=== PATIENT | male | born 1960 | race Caucasian/White ===

== ENCOUNTER 2019-05-12 12:24 | Outpatient (CLI) | payer BC, SELFPAY ==
--- NOTE | 2019-05-12 12:33 | USCV_ITS ---
Mervin Olivas Age: 59 Gender: M : 1960 Exam Date: 05/12/2019 12:44 Ordering Phys: Servando Gibson MD Technologist: Diamond Garrett Exam Location: [facility] [place] HISTORY: Lower extremity swelling. Left fem-pop arterial graft placed 3 months ago. PROCEDURES: Venous duplex imaging was performed in only the left lower extremity. The following venous structures were evaluated: common femoral vein, profunda vein, proximal portion of the greater saphenous vein, superficial femoral vein, and the popliteal vein. In addition, the posterior tibial and peroneal trunk were evaluated. FINDINGS: Normal 2-D Doppler and augmentation and compressibility throughout the lower extremity venous structures. Additional imaging through the proximal calf veins also reveals no thrombus. Limited evaluation of the greater saphenous vein is patent with no thrombus.. CONCLUSIONS No evidence of left lower extremity DVT. Cl Agee MD (Electronically Signed) Final Date: 12 May 2019 15:41 S
== END 2019-05-12 12:25 | disposition home or self-care (01) ==
LOC: RAD 12:28
PROVIDERS: Family Provider Family Medicine; PCP Family Medicine; Visit Provider Family Medicine
DX: M79.605 Pain in left leg (principal)
CPT/HCPCS: 93971

== ENCOUNTER 2019-05-13 11:50 | Outpatient (CLI) | payer BC, SELFPAY ==
--- NOTE | 2019-05-13 12:45 | USCV_ITS ---
Mervin Olivas Age: 59 Gender: M : 1960 Exam Date: 05/13/2019 12:07 Ordering Phys: Servando Gibson MD Technologist: Diamond Garrett [place] [facility] [place] LEFT LEG PAIN Risk Factors: None Previous Vascular Surgery: LEFT FEMORAL-POPLITEAL GRAFT RIGHT LEFT BP: 173.0 / 74.00 BP: 168.0/ 79.00 0 0 Waveform Velocity (cm/s) Velocity (cm/s) Waveform Iliac Prox 113.9 Monophasic Iliac Mid 122.6 Monophasic Iliac Distal Monophasic 118.7 MANAGER CREATIVE 200.5 Monophasic SFA Prox 161.8 Monophasic SFA Mid 132.7 Monophasic SFA Dist 201.7 Monophasic POP 90.5 Monophasic MEDICAL ECONOMICS CONSULTANT 29.5 Monophasic DPA 86.0 Monophasic KENNETH 0.7 FINDINGS Diminished resting KENNETH on the left side. Monophasic Doppler waveforms throughout the left side. CONCLUSIONS The above features may suggest at least moderate peripheral artery disease, possibly multisegmental Dr Shanell Zepeda MD [facility] (Electronically Signed) Final Date: 14 May 2019 15:27 S
--- NOTE | 2019-05-24 13:48 | PM.HP ---
Providers/Chief Complaint Admitting Physician: Susan aMyorga DO Primary Care Provider: Servando Gibson Jr, MD Chief Complaint: left leg pain History of Present Illness Mervin Olivas is a 59 year old male with a past medical history of peripheral vascular disease, claudication, diabetes and hypertension that presented to the hospital today via direct admission from his primary care provider's office due to concern for left lower extremity cellulitis. Patient reported that he has been having fever since Thursday. T-max of 103.8 ?F, he was in [place] over the weekend working when he began having increased leg swelling and pain in the left lower extremity. Coding Level of Care Code Acute Crm Marketing Analyst for Dwaine Sinclair
== END 2019-05-13 11:51 | disposition home or self-care (01) ==
LOC: RAD 11:53
PROVIDERS: Family Provider Family Medicine; PCP Family Medicine; Visit Provider Family Medicine
DX: M79.605 Pain in left leg (principal)
CPT/HCPCS: 93926

== ENCOUNTER 2019-05-24 11:58 | Inpatient (IN) | payer BC, SELFPAY ==
[2019-05-24 13:08] VITALS: BMI 43.9
--- NOTE | 2019-05-24 13:55 | PM.HP ---
Providers/Chief Complaint Admitting Physician: Susan Mayorga MD Primary Care Provider: Servando Gibson Jr, MD Chief Complaint: LEFT GROIN CELLULITIS History of Present Illness Mervin Olivas is a 59 year old male Mervin Olivas is a 59 year old male with a past medical history of peripheral vascular disease, claudication, diabetes and hypertension that presented to the hospital today via direct admission from his primary care provider's office due to concern for left lower extremity cellulitis. Patient reported that he has been having fever since Thursday. T-max of 103.8 ?F, he was in [place] over the weekend working when he began having increased leg swelling and pain in the left lower extremity. Patient was seen at his primary care provider's office today due to the concern and continued fevers and pain and admitted to the hospital for further evaluation and treatment. Patient had been hospitalized at [facility] after the due to having cellulitis in the left lower extremity and groin after a femoropopliteal bypass in the left leg that was performed on 01/27/2019. Patient is followed with Dr. Levin, vascular surgery as well as with Dr. Shipley. Patient reports that he had a wound VAC placed shortly after , had been receiving IV antibiotics and transition to oral antibiotics and has had continued healing of his incision since that time. He is dated that he has not had any other symptoms other than sudden onset of swelling and redness in the left lower extremity. No recent sick contacts, no cough or sputum production. Patient reported no changes to his incision, no drainage. Reported that some redness had extended into his abdomen over the weekend, has not been on any recent antibiotics. Review of Systems Const: Reports: fever and chills Eyes: Denies: change in vision ENMT: Denies: nasal congestion Card: Denies: chest pain or palpitations Resp: Denies: shortness of breath, productive cough or coughing up blood GI: Denies: abdominal pain, nausea, vomiting, diarrhea, constipation, blood in stool or black tarry stool : Denies: painful urination or blood in urine Musc: Reports: extremity pain (Left) and redness (L Leg); Denies: muscle cramps Skin/Breast: Reports: redness (Left lower extremity) Neuro: Denies: headache or dizziness Psych: Denies: anxiety or depression Endo: Denies: excessive urination or hot flashes [place]/Lymph: Denies: easy bruising or easy bleeding PFSH Acute PFSH: Statuses (acute, chronic, etc) shown below reflect problem list status as previously entered and may not be historically accurate Medical History (Updated 05/24/19 @ 14:01 by Susan Mayorga DO) Carotid artery stenosis (Acute) Coronary artery disease (Acute) Diabetes mellitus type 2, insulin dependent (Acute) Hypertension (Acute) Obstructive sleep apnea (Acute) Peripheral vascular disease (Acute) Surgical History (Updated 05/24/19 @ 14:14 by Susan Mayorga DO) Hx of cardiac cath (Acute) Stent x2 in 2015, Dr. Anton Cheney [place], [place] Hx of laparoscopic gastric banding (Acute) 04/2009 Status post femoral-popliteal bypass surgery (Acute) Left leg, Noni Barrera: Dr. Levni 01/27/2019 Status post repair of complex wound (Acute) Wound exploration and wound VAC placement on 03/02/2019 Wound exploration on 02/17/2019 Drain placed in left groin wound on 02/05/2019 Family History (Updated 05/24/19 @ 14:15 by Susan Mayorga DO) Mother Hypertension Cancer Breast Cancer Grandfather Diabetes Social History (Updated 05/24/19 @ 14:16 by Susan Mayorga DO) Smoking and tobacco status: former smoker Alcohol intake: never Substance/Drug Use: never Household members: spouse Marital status: Highest education level completed: High School Graduate Current occupational status: employed 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 Vitals/I&O/Wt 05/23/19 05/24/19 05/24/19 22:59 06:59 14:59 Intake Total 360 / 360 Balance 360 / 360 Weight last 48 hrs Weight 151.001 kg Physical Exam Const: COMMON NORMALS: oriented x3 and alert GENERAL APPEARANCE: cooperative ORIENTATION/CONSCIOUSNESS: Yes awake, Yes oriented to person, Yes oriented to place and Yes oriented to time HENMT: COMMON NORMALS: normocephalic and head/scalp atraumatic HEAD & SCALP: normocephalic and atraumatic Eye: COMMON NORMALS: PERRL PUPIL: Yes PERRL Neck/C-Spine: COMMON NORMALS: supple GENERAL: Yes normal visual inspection Resp: COMMON NORMALS: normal respiratory effort and clear to auscultation bilaterally EFFORT & INSPECTION: Yes able to speak in complete sentences AUSCULTATION: clear to auscultation bilaterally, no rhonchi and no wheezes Cardio: COMMON NORMALS: regular rate, regular rhythm and no murmurs RATE: regular rate RHYTHM: regular rhythm GI: COMMON NORMALS: soft to palpation and non-tender INSPECTION: No abdominal distension AUSCULTATION: Yes normoactive bowel sounds PALPATION: Yes soft Extremity: NARRATIVE EXTREMITY EXAM: Left lower extremity with 2+ pitting edema and erythema Neuro: COMMON NORMALS: oriented x3, CN's II-XII intact bilaterally, moves all extremities and no focal motor deficits SENSORIUM/ORIENTATION: Yes alert, Yes oriented to person, Yes oriented to place and Yes oriented to time SPEECH: speech normal Psych: COMMON NORMALS: mental status grossly normal and cooperative Skin: OTHER: Left lower extremity with erythema extending from the ankle to the knee, no open wounds or drainage. Incision on the left medial groin well-healed without any surrounding erythema or drainage. Small abrasion in the left groin with no significant drainage A&P Assessment and plan (1) Cellulitis: Admit to inpatient due to significance of cellulitis and fever and concern for sepsis Started on broad-spectrum IV antibiotics with vancomycin and Zosyn We will up attain records from outpatient facility due to patient's recent femoropopliteal and debridement requiring wound VAC placement in March 2019 We will obtain urgent imaging of the left lower extremity to rule out any arterial occlusion due to his history of peripheral vascular disease and rule out any DVT Status: Acute Code(s): L03.90 - Cellulitis, unspecified (2) Peripheral vascular disease: Status post recent femoral-popliteal bypass surgery at [facility] by Dr. Levin Had difficulty healing following this procedure requiring multiple wound explorations and ultimately wound VAC placement, wound is now healed without any identifiable drainage We will obtain ultrasound of the lower extremity for further evaluation of occlusion or DVT Status: Acute Code(s): I73.9 - Peripheral vascular disease, unspecified (3) Coronary artery disease: Continue on home aspirin, Coreg, Imdur, lisinopril, statin Status: Acute Code(s): I25.10 - Atherosclerotic heart disease of [place] coronary artery without angina pectoris (4) Hypertension: Continue on home medications: Coreg 3.125 mg twice daily, Imdur 30 mg daily, lisinopril 20 mg twice daily, amlodipine 10 mg daily Status: Acute Code(s): I10 - Essential (primary) hypertension (5) Diabetes mellitus type 2, insulin dependent: Continue with insulin sliding scale as needed Patient is on Lantus 35 units at bedtime at home, may require slight decrease in dose in the inpatient setting but will continue to monitor glucose closely Status: Acute Code(s): E11.9 - Type 2 diabetes mellitus without complications; Z79.4 - 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 DVT prophylaxis: Lovenox Diet: Carbohydrate consistent Attestations Medical Necessity Statement*: Patient requires hospitalization due to concern for fever with lower extremity cellulitis in the setting of recent femoral-popliteal bypass surgery in January with multiple wound complications in the postoperative setting including wound VAC placement. Expected stay greater than 2 midnights Coding Level of Care Code Acute Press Supervisor for Dwaine Sinclair Diagnoses Cellulitis L03.90 Peripheral vascular disease I73.9 Coronary artery disease I25.10 Hypertension I10 Diabetes mellitus type 2, insulin dependent E11.9; Z79.4
--- NOTE | 2019-05-24 14:03 | USCV_ITS ---
Mervin Olivas Age: 59 Gender: M : 1960 Exam Date: 05/24/2019 15:08 Ordering Phys: Susan Mayorga DO Technologist: Jevon Vargas [place] [facility] [place]: LT LEG SWELLING HISTORY: Lower extremity swelling. PROCEDURES: Venous duplex imaging was performed in only the left lower extremity. The following venous structures were evaluated: common femoral vein, profunda vein, proximal portion of the greater saphenous vein, superficial femoral vein, and the popliteal vein. In addition, the posterior tibial and peroneal trunk were evaluated. On the left side, the common femoral, superficial femoral, profunda femoral, popliteal, posterior tibial, greater saphenous veins, and the peroneal trunk were identified and interrogated in the standard fashion. These veins were found to be easily compressible with spontaneous blood flow. No evidence of insufficiency or thrombus noted. FINDINGS: Normal 2-D Doppler and augmentation and compressibility throughout the lower extremity venous structures. Additional imaging through the proximal calf veins also reveals no thrombus. Limited evaluation of the greater saphenous vein is patent with no thrombus.. Echolucent areas are noted in the subcutaneous tissue CONCLUSIONS No evidence of DVT in the above-mentioned identifiable veins. Features of fluid retention/edema in the left lower extremity Dr Shanell Zepeda MD [facility] (Electronically Signed) Final Date: 25 May 2019 08:30 S
--- NOTE | 2019-05-24 14:03 | USCV_ITS ---
SilvanaMervin herrera Age: 59 Gender: M : 1960 Exam Date: 05/24/2019 15:13 Ordering Phys: Susan Mayorga DO Technologist: Jevon Vargas [place] [facility] [place]: LT LEG ILIAC TO FEM ART BY PASS Risk Factors: Previous Vascular Surgery: RIGHT LEFT BP: 170.0 / 70.00 BP: 170.0/ 70.00 0 0 Waveform Velocity (cm/s) Velocity (cm/s) Waveform SFA Prox 113.6 Monophasic SFA Mid 124.9 Monophasic SFA Dist 49.5 Monophasic POP 79.7 Monophasic HEAD SCORER 34.8 Monophasic DPA 140.0 Monophasic KENNETH 0.7 FINDINGS NO CHANGE FROM PREVIOUS Patent iliofemoral bypass graft Diminished resting KENNETH of 0.7 on the left side Moderate diffuse plaques in the femoral popliteal artery CONCLUSIONS Abnormal resting KENNETH on the left side, consistent with moderate peripheral artery disease Patent iliofemoral bypass graft Compared to the study from 05/13/2019, the KENNETH has not changed Dr Shanell Zepeda MD [facility] (Electronically Signed) Final Date: 25 May 2019 08:37 S
[2019-05-24 14:48] LABS: Basophils % 0.3 %; Eosinophils # 0.2 10^3/uL (0.0-0.8); Eosinophils % 1.2 %; Hematocrit 33.7 % (42.0-52.0); Hemoglobin 10.5 g/dL (11.7-16.6); Lymphocytes # 1.2 10^3/uL (0.8-4.8); Lymphocytes % 9.2 %; Mean Corpuscular HGB Conc 31.2 g/dL (30.0-36.0); Mean Corpuscular Hemoglobin 24.5 pg (28.0-34.0); Mean Corpuscular Volume 78.7 fL (80-94); Mean Platelet Volume 10.5 fL (7.4-10.4); Monocytes # 1.1 10^3/uL (0.2-0.9); Monocytes % 7.9 %; Neutrophils # 10.8 10^3/uL (1.8-7.7); Neutrophils % 80.6 %; Nucleated Red Blood Cells % 0 %; Platelet Count 170 10^3/cmm (130-400); Red Blood Count 4.28 10^6/uL (4.1-5.3); Red Cell Distribution Width 14.6 % (12.1-15.1); White Blood Count 13.3 10^3/uL (4.0-10.0)
[2019-05-24 15:05] LABS: Lactic Sepsis W/Reflex 1.4 mmol/L (0.5-2.2)
[2019-05-24 15:06] LABS: Alanine Aminotransferase 24 U/L (0-41); Albumin Level 2.9 g/dL (3.5-5.2); Alkaline Phosphatase 161 IU/L (40-130); Anion Gap 14.7 (5-19); Aspartate Amino Transferase 25 U/L (0-40); Blood Urea Nitrogen 12 mg/dL (6-20); C Reactive Protein 187.4 mg/L (0.0-4.9); Calcium 9.3 mg/Dl (8.6-10.0); Carbon Dioxide 25 mmol/L (22-29); Chloride 95 mmol/L (98-107); Globulin 4.8 g/dL (1.3-4.6); Glomerular Filtration Rate 116.2 mL/min (90-130); Glucose 175 mg/dL (74-109); Potassium 3.7 mmol/L (3.5-5.1); Sodium 131 mmol/L (136-145); Total Bilirubin 0.6 mg/dL (0.15-1.2); Total Protein 7.7 g/dL (6.6-8.7)
[2019-05-24 15:29] LABS: Erythrocyte Sedimentation Rate 94 mm/hr (0-10)
[2019-05-24 15:47] VITALS: BP 126/78; PULSE 79; RESP 17; TEMP 36.8; O2SAT 98
[2019-05-24 16:06] VITALS: PULSE 80; O2SAT 92
[2019-05-24] MEDS: sodium chloride 0.9% 1,000 ML 50 ML IV (16:48)
[2019-05-24] MEDS: enoxaparin 40 mg/0.4 mL Syringe SUBCUT (16:48)
[2019-05-24 18:25] LABS: Glucose Point of Care 246 mg/dL (70-110)
[2019-05-24] MEDS: piperacillin-tazobactam 3.375 GM in sodium chloride 0.9% (plus) 50 ML IV (18:35)
[2019-05-24 20:00] VITALS: BP 164/71; PULSE 84; RESP 24; TEMP 37.9; O2SAT 94
[2019-05-24] MEDS: insulin glargine 100 units/1 mL 25 UNIT SUBCUT (20:24)
[2019-05-24 21:16] LABS: Glucose Point of Care 191 mg/dL (70-110)
[2019-05-24] MEDS: acetaminophen 325 mg Tablet 650 MG PO (21:40)
[2019-05-24 22:43] VITALS: PULSE 79; O2SAT 96
[2019-05-25] VITALS (7 sets, daily range): BP systolic 154–177; BP diastolic 66–81; PULSE 72–81; RESP 16–24; TEMP 36.8–37.7; O2SAT 91–94
[2019-05-25] MEDS: pregabalin 100 mg Capsule PO ×4 (00:31→20:40)
[2019-05-25] MEDS: piperacillin-tazobactam 3.375 GM in sodium chloride 0.9% (plus) 50 ML IV ×2 (01:53→18:04)
[2019-05-25 06:49] LABS: Glucose Point of Care 160 mg/dL (70-110)
--- NOTE | 2019-05-25 10:08 | PM.PN ---
Subjective Subjective: Interval history: Patient awake in bed at time of exam this morning. Reported continued pain in the left lower extremity, continued redness. Denied any chest pain or shortness of breath. Vitals/I&O/Wt Last Vital Signs Temp 99.4 F 05/25/19 08:00 Pulse 76 05/25/19 08:00 Resp 18 05/25/19 08:00 BP 157/78 05/25/19 08:00 Pulse Ox 93 05/25/19 08:00 05/24/19 05/25/19 05/25/19 22:59 06:59 14:59 Intake Total 750 / 1110 450 / 1560 600 / 600 Balance 750 / 1110 450 / 1560 600 / 600 Weight last 48 hrs Weight 153.677 kg Weight 151.001 kg Physical Exam Const: COMMON NORMALS: oriented x3 and alert GENERAL APPEARANCE: cooperative ORIENTATION/CONSCIOUSNESS: Yes awake, Yes oriented to person, Yes oriented to place and Yes oriented to time HENMT: COMMON NORMALS: normocephalic and head/scalp atraumatic HEAD & SCALP: normocephalic and atraumatic Eye: COMMON NORMALS: PERRL PUPIL: Yes PERRL Neck/C-Spine: COMMON NORMALS: supple GENERAL: Yes normal visual inspection Resp: COMMON NORMALS: normal respiratory effort and clear to auscultation bilaterally EFFORT & INSPECTION: Yes able to speak in complete sentences AUSCULTATION: clear to auscultation bilaterally, no rhonchi and no wheezes Cardio: COMMON NORMALS: regular rate, regular rhythm and no murmurs RATE: regular rate RHYTHM: regular rhythm GI: COMMON NORMALS: soft to palpation and non-tender INSPECTION: No abdominal distension AUSCULTATION: Yes normoactive bowel sounds PALPATION: Yes soft Extremity: NARRATIVE EXTREMITY EXAM: Left lower extremity with 2+ pitting edema and erythema to the knee Neuro: COMMON NORMALS: oriented x3, CN's II-XII intact bilaterally, moves all extremities and no focal motor deficits SENSORIUM/ORIENTATION: Yes alert, Yes oriented to person, Yes oriented to place and Yes oriented to time SPEECH: speech normal Psych: COMMON NORMALS: mental status grossly normal and cooperative Skin: OTHER: Left lower extremity with erythema extending from the ankle to the knee, no open wounds or drainage. Incision on the left medial groin well-healed without any surrounding erythema or drainage. Small abrasion in the left groin with no significant drainage Data : 05/24/19 14:32 05/24/19 14:32 Micro: Microbiology 05/24/19 14:38 Blood Culture - Preliminary Blood SPECIMEN COLLECTED 05/24/19 14:32 Blood Culture - Preliminary Blood SPECIMEN COLLECTED A&P Assessment and plan (1) Cellulitis: Continue on broad-spectrum IV antibiotics with vancomycin and Zosyn Recent Fem/pop bypass and debridement requiring wound VAC placement in March 2019 at [facility] Lower extremity venous duplex negative for DVT, arterial duplex is unchanged from last week Status: Acute Code(s): L03.90 - Cellulitis, unspecified (2) Peripheral vascular disease: Status post recent femoral-popliteal bypass surgery at [facility] by Dr. Levin Had difficulty healing following this procedure requiring multiple wound explorations and ultimately wound VAC placement, wound is now healed without any identifiable drainage Status: Acute Code(s): I73.9 - Peripheral vascular disease, unspecified (3) Coronary artery disease: Continue on home aspirin, Coreg, Imdur, lisinopril, statin Status: Acute Code(s): I25.10 - Atherosclerotic heart disease of [place] coronary artery without angina pectoris (4) Hypertension: Continue on home medications: Coreg 3.125 mg twice daily, Imdur 30 mg daily, lisinopril 20 mg twice daily, amlodipine 10 mg daily Status: Acute Code(s): I10 - Essential (primary) hypertension (5) Diabetes mellitus type 2, insulin dependent: Continue with insulin sliding scale as needed Patient is on Lantus 35 units at bedtime at home, decreased insulin requirements as do not wish for him to become hypoglycemic in the inpatient setting Status: Acute Code(s): E11.9 - Type 2 diabetes mellitus without complications; 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 Additional A&P Information Fever: Secondary to lower extremity cellulitis Anemia: Chronic, normocytic on prior lab work from outside facility Neuropathy of the lower extremities: Restart home Lyrica DVT prophylaxis: Lovenox Diet: Carbohydrate consistent Attestations Medical Necessity Statement*: Patient requires continued hospitalization due to significant left lower extremity cellulitis with concern for sepsis and fever and severe peripheral vascular disease with recent femoral popliteal bypass Coding Level of Care Code Acute Transition Of Care Specialist for Dwaine Sinclair Diagnoses Cellulitis L03.90 Peripheral vascular disease I73.9 Coronary artery disease I25.10 Hypertension I10 Diabetes mellitus type 2, insulin dependent E11.9; Z79.4
[2019-05-25 10:45] LABS: Anion Gap 15.7 (5-19); Blood Urea Nitrogen 8 mg/dL (6-20); Calcium 8.7 mg/Dl (8.6-10.0); Carbon Dioxide 22 mmol/L (22-29); Chloride 94 mmol/L (98-107); Glomerular Filtration Rate 171.4 mL/min (90-130); Glucose 232 mg/dL (74-109); Osmolality Calculated 269 mOsm/kg (285-295); Potassium 3.7 mmol/L (3.5-5.1); Sodium 128 mmol/L (136-145)
[2019-05-25 11:25] LABS: Basophils % 0.3 %; Eosinophils # 0.1 10^3/uL (0.0-0.8); Eosinophils % 1.3 %; Hematocrit 31.3 % (42.0-52.0); Hemoglobin 9.8 g/dL (11.7-16.6); Lymphocytes # 0.8 10^3/uL (0.8-4.8); Lymphocytes % 8.4 %; Mean Corpuscular HGB Conc 31.3 g/dL (30.0-36.0); Mean Corpuscular Hemoglobin 24.4 pg (28.0-34.0); Mean Corpuscular Volume 77.9 fL (80-94); Mean Platelet Volume 11.1 fL (7.4-10.4); Monocytes # 0.8 10^3/uL (0.2-0.9); Monocytes % 7.7 %; Neutrophils # 8.2 10^3/uL (1.8-7.7); Neutrophils % 81.6 %; Nucleated Red Blood Cells % 0 %; Platelet Count 162 10^3/cmm (130-400); Red Blood Count 4.02 10^6/uL (4.1-5.3); Red Cell Distribution Width 14.6 % (12.1-15.1)
[2019-05-25 12:14] LABS: Glucose Point of Care 222 mg/dL (70-110)
[2019-05-25] MEDS: amlodipine 10 mg Tablet PO (13:31)
[2019-05-25] MEDS: isosorbide mononitrate ER 30 mg Tablet PO (13:31)
[2019-05-25] MEDS: lisinopril 20 mg Tablet PO (13:31)
[2019-05-25] MEDS: sodium chloride 0.9% 1,000 ML 50 ML IV (13:32)
[2019-05-25] MEDS: aspirin 81 mg EC Tablet PO (13:32)
[2019-05-25] MEDS: enoxaparin 40 mg/0.4 mL Syringe SUBCUT (13:32)
[2019-05-25] MEDS: carvedilol 3.125 mg Tablet PO ×2 (13:52→18:04)
[2019-05-25] MEDS: atorvastatin 40 mg Tablet 20 MG PO (16:36)
[2019-05-25 16:49] LABS: Glucose Point of Care 152 mg/dL (70-110)
[2019-05-25 20:11] LABS: Vancomycin Trough 12.9 ug/mL (10-15)
[2019-05-25] MEDS: triamcinolone 0.1% cream 15 gm 1 APPLIC TOPICAL ×2 (20:11→23:02)
[2019-05-25 21:19] LABS: Glucose Point of Care 268 mg/dL (70-110)
[2019-05-25] MEDS: insulin glargine 100 units/1 mL 30 UNIT SUBCUT (23:01)
[2019-05-26] VITALS (7 sets, daily range): BP systolic 147–179; BP diastolic 66–78; PULSE 68–74; RESP 18–22; TEMP 36.7–37.4; O2SAT 90–95
[2019-05-26] MEDS: lisinopril 20 mg Tablet PO ×2 (01:05→12:11)
[2019-05-26] MEDS: piperacillin-tazobactam 3.375 GM in sodium chloride 0.9% (plus) 50 ML IV ×3 (02:02→17:32)
[2019-05-26 06:04] LABS: Basophils % 0.4 %; Eosinophils # 0.2 10^3/uL (0.0-0.8); Eosinophils % 2.4 %; Hematocrit 30.5 % (42.0-52.0); Hemoglobin 9.4 g/dL (11.7-16.6); Lymphocytes % 14.6 %; Mean Corpuscular HGB Conc 30.8 g/dL (30.0-36.0); Mean Corpuscular Hemoglobin 24.1 pg (28.0-34.0); Mean Corpuscular Volume 78.2 fL (80-94); Mean Platelet Volume 10.4 fL (7.4-10.4); Monocytes # 0.6 10^3/uL (0.2-0.9); Monocytes % 8.9 %; Neutrophils # 4.9 10^3/uL (1.8-7.7); Neutrophils % 72.8 %; Nucleated Red Blood Cells % 0 %; Platelet Count 159 10^3/cmm (130-400); Red Cell Distribution Width 14.6 % (12.1-15.1); White Blood Count 6.8 10^3/uL (4.0-10.0)
[2019-05-26 06:28] LABS: Anion Gap 13.7 (5-19); Blood Urea Nitrogen 8 mg/dL (6-20); Calcium 8.4 mg/Dl (8.6-10.0); Carbon Dioxide 23 mmol/L (22-29); Chloride 96 mmol/L (98-107); Glomerular Filtration Rate 171.4 mL/min (90-130); Glucose 205 mg/dL (74-109); Osmolality Calculated 270 mOsm/kg (285-295); Potassium 3.7 mmol/L (3.5-5.1); Sodium 129 mmol/L (136-145)
[2019-05-26 07:01] LABS: Glucose Point of Care 218 mg/dL (70-110)
[2019-05-26] MEDS: amlodipine 10 mg Tablet PO (08:14)
[2019-05-26] MEDS: carvedilol 3.125 mg Tablet PO ×2 (08:14→17:32)
[2019-05-26] MEDS: aspirin 81 mg EC Tablet PO (08:14)
[2019-05-26] MEDS: atorvastatin 40 mg Tablet 20 MG PO (08:14)
[2019-05-26] MEDS: isosorbide mononitrate ER 30 mg Tablet PO (08:14)
[2019-05-26] MEDS: pregabalin 100 mg Capsule PO ×3 (08:14→21:09)
[2019-05-26] MEDS: triamcinolone 0.1% cream 15 gm 1 APPLIC TOPICAL ×3 (08:15→21:15)
--- NOTE | 2019-05-26 10:04 | PM.PN ---
Subjective Subjective: Interval history: Patient reports continued discomfort in the left lower extremity, worse with ambulation. He reports fevers and chills have improved. Denies any chest pain or shortness of breath. Denies any abdominal pain or nausea Vitals/I&O/Wt Last Vital Signs Temp 98.2 F 05/26/19 07:50 Pulse 72 05/26/19 07:50 Resp 20 H 05/26/19 07:50 BP 168/77 05/26/19 07:50 Pulse Ox 90 05/26/19 07:50 05/25/19 05/26/19 05/26/19 22:59 06:59 14:59 Intake Total 1150 / 3230 620 / 3850 Balance 1150 / 3230 620 / 3850 Weight last 48 hrs Weight 154.902 kg Weight 156.172 kg Weight 153.677 kg Weight 151.001 kg Physical Exam Const: COMMON NORMALS: oriented x3 and alert GENERAL APPEARANCE: cooperative ORIENTATION/CONSCIOUSNESS: Yes awake, Yes oriented to person, Yes oriented to place and Yes oriented to time HENMT: COMMON NORMALS: normocephalic and head/scalp atraumatic HEAD & SCALP: normocephalic and atraumatic Neck/C-Spine: COMMON NORMALS: supple GENERAL: Yes normal visual inspection Resp: COMMON NORMALS: normal respiratory effort and clear to auscultation bilaterally EFFORT & INSPECTION: Yes able to speak in complete sentences AUSCULTATION: clear to auscultation bilaterally, no rhonchi and no wheezes Cardio: COMMON NORMALS: regular rate, regular rhythm and no murmurs RATE: regular rate RHYTHM: regular rhythm GI: COMMON NORMALS: soft to palpation and non-tender INSPECTION: No abdominal distension AUSCULTATION: Yes normoactive bowel sounds PALPATION: Yes soft Extremity: NARRATIVE EXTREMITY EXAM: Continued edema and erythema in the left lower extremity, slight improvement in edema, continued erythema to the knee Neuro: COMMON NORMALS: oriented x3, CN's II-XII intact bilaterally, moves all extremities and no focal motor deficits SENSORIUM/ORIENTATION: Yes alert, Yes oriented to person, Yes oriented to place and Yes oriented to time SPEECH: speech normal Psych: COMMON NORMALS: mental status grossly normal and cooperative Skin: OTHER: Left lower extremity with erythema extending from the ankle to the knee, no open wounds or drainage. Data : 05/26/19 05:48 05/26/19 05:48 Micro: Microbiology 05/24/19 14:32 Blood Culture - Preliminary Blood NEGATIVE TO DATE 05/24/19 14:38 Blood Culture - Preliminary Blood NEGATIVE TO DATE A&P Assessment and plan (1) Cellulitis: Continue on broad-spectrum IV antibiotics with vancomycin and Zosyn Recent Fem/pop bypass and debridement requiring wound VAC placement in March 2019 at [facility] Lower extremity venous duplex negative for DVT, arterial duplex is unchanged from last week Fevers have improved, white blood cell count improving, will recheck CRP and ESR in the morning to trend. We will continue to monitor Dopplers in the lower extremity. Status: Acute Code(s): L03.90 - Cellulitis, unspecified (2) Peripheral vascular disease: Status post recent femoral-popliteal bypass surgery at [facility] by Dr. Levin Had difficulty healing following this procedure requiring multiple wound explorations and ultimately wound VAC placement, wound is now healed without any identifiable drainage Status: Acute Code(s): I73.9 - Peripheral vascular disease, unspecified (3) Coronary artery disease: Continue on home aspirin, Coreg, Imdur, lisinopril, statin Status: Acute Code(s): I25.10 - Atherosclerotic heart disease of [place] coronary artery without angina pectoris (4) Hypertension: Continue on home medications: Coreg 3.125 mg twice daily, Imdur 30 mg daily, lisinopril 20 mg twice daily, amlodipine 10 mg daily Status: Acute Code(s): I10 - Essential (primary) hypertension (5) Diabetes mellitus type 2, insulin dependent: Continue with insulin sliding scale as needed Lantus 30 units at bedtime Status: Acute Code(s): E11.9 - Type 2 diabetes mellitus without complications; 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 Secondary to lower extremity cellulitis. Blood culture showing no growth to date. Anemia: Chronic, normocytic on prior lab work from outside facility Neuropathy of the lower extremities: Continue Lyrica 3 times daily DVT prophylaxis: Lovenox Diet: Carbohydrate consistent Attestations Medical Necessity Statement*: Patient requires continued hospitalization due to left lower extremity cellulitis with recent femoral-popliteal bypass surgery Coding Level of Care Code Acute Benefits Consultant for Dwaine Sinclair Diagnoses Cellulitis L03.90 Peripheral vascular disease I73.9 Coronary artery disease I25.10 Hypertension I10 Diabetes mellitus type 2, insulin dependent E11.9; Z79.4
[2019-05-26 11:09] LABS: Glucose Point of Care 171 mg/dL (70-110)
[2019-05-26] MEDS: enoxaparin 40 mg/0.4 mL Syringe SUBCUT (14:04)
[2019-05-26] MEDS: HYDROcodone-acetaminophen 5-325 mg Tablet 1 TAB PO ×2 (15:47→21:11)
[2019-05-26 16:40] LABS: Glucose Point of Care 218 mg/dL (70-110)
[2019-05-26 20:36] LABS: Glucose Point of Care 259 mg/dL (70-110)
[2019-05-26] MEDS: insulin glargine 100 units/1 mL 30 UNIT SUBCUT (21:11)
[2019-05-27] MEDS: piperacillin-tazobactam 3.375 GM in sodium chloride 0.9% (plus) 50 ML IV ×2 (01:05→09:25)
[2019-05-27] MEDS: lisinopril 20 mg Tablet PO ×2 (01:05→11:51)
[2019-05-27 03:12] VITALS: BP 163/79; PULSE 66; RESP 19; TEMP 37.1; O2SAT 91
[2019-05-27 06:00] LABS: Basophils % 0.5 %; Eosinophils # 0.3 10^3/uL (0.0-0.8); Eosinophils % 3.6 %; Hematocrit 35.8 % (42.0-52.0); Hemoglobin 11.3 g/dL (11.7-16.6); Lymphocytes # 1.3 10^3/uL (0.8-4.8); Mean Corpuscular HGB Conc 31.6 g/dL (30.0-36.0); Mean Corpuscular Hemoglobin 24.7 pg (28.0-34.0); Mean Corpuscular Volume 78.3 fL (80-94); Mean Platelet Volume 10.1 fL (7.4-10.4); Monocytes # 0.6 10^3/uL (0.2-0.9); Monocytes % 7.6 %; Neutrophils # 5.5 10^3/uL (1.8-7.7); Neutrophils % 70.4 %; Nucleated Red Blood Cells % 0 %; Platelet Count 281 10^3/cmm (130-400); Red Blood Count 4.57 10^6/uL (4.1-5.3); Red Cell Distribution Width 14.6 % (12.1-15.1); White Blood Count 7.8 10^3/uL (4.0-10.0)
[2019-05-27 06:15] LABS: Anion Gap 17.3 (5-19); Blood Urea Nitrogen 6 mg/dL (6-20); Calcium 9.1 mg/dL (8.5-10.5); Carbon Dioxide 23 mmol/L (22-29); Chloride 95 mmol/L (98-107); Glomerular Filtration Rate 171.4 mL/min (90-130); Glucose 140 mg/dL (74-109); Osmolality Calculated 270 mOsm/kg (285-295); Potassium 4.3 mmol/L (3.5-5.1); Sodium 131 mmol/L (136-145)
[2019-05-27 06:36] LABS: Glucose Point of Care 134 mg/dL (70-110)
[2019-05-27 06:40] LABS: C Reactive Protein 81.2 mg/L (0.0-4.9)
[2019-05-27] MEDS: isosorbide mononitrate ER 30 mg Tablet PO (07:59)
[2019-05-27] MEDS: amlodipine 10 mg Tablet PO (07:59)
[2019-05-27] MEDS: pregabalin 100 mg Capsule PO ×3 (07:59→21:35)
[2019-05-27 08:00] VITALS: BP 174/85; PULSE 68; RESP 18; TEMP 36.8; O2SAT 92
[2019-05-27] MEDS: HYDROcodone-acetaminophen 5-325 mg Tablet 1 TAB PO ×2 (08:00→21:34)
[2019-05-27] MEDS: aspirin 81 mg EC Tablet PO (08:00)
[2019-05-27] MEDS: carvedilol 3.125 mg Tablet PO ×2 (08:01→18:14)
[2019-05-27] MEDS: atorvastatin 40 mg Tablet 20 MG PO (09:24)
--- NOTE | 2019-05-27 10:03 | PM.PN ---
Subjective Subjective: Interval history: Patient reports improved pain in the left lower extremity today. Redness slightly improved. Denies any chills overnight. Denies any chest pain or shortness of breath. Discussed plan of care with patient as far as de-escalation of antibiotics and continued inpatient treatment and he understands plan and agrees with plan Vitals/I&O/Wt Last Vital Signs Temp 98.2 F 05/27/19 08:00 Pulse 68 05/27/19 08:00 Resp 18 05/27/19 08:00 BP 174/85 05/27/19 08:00 Pulse Ox 92 05/27/19 08:00 05/26/19 05/27/19 05/27/19 22:59 06:59 14:59 Intake Total 1030 / 2420 550 / 2970 720 / 720 Balance 1030 / 2420 550 / 2970 720 / 720 Weight last 48 hrs Weight 155.837 kg Weight 154.902 kg Weight 156.172 kg Physical Exam Const: COMMON NORMALS: oriented x3 and alert GENERAL APPEARANCE: cooperative ORIENTATION/CONSCIOUSNESS: Yes awake, Yes oriented to person, Yes oriented to place and Yes oriented to time HENMT: COMMON NORMALS: normocephalic and head/scalp atraumatic HEAD & SCALP: normocephalic and atraumatic Eye: COMMON NORMALS: PERRL PUPIL: Yes PERRL Neck/C-Spine: COMMON NORMALS: supple GENERAL: Yes normal visual inspection Resp: COMMON NORMALS: normal respiratory effort and clear to auscultation bilaterally EFFORT & INSPECTION: Yes able to speak in complete sentences AUSCULTATION: clear to auscultation bilaterally, no rhonchi and no wheezes Cardio: COMMON NORMALS: regular rate, regular rhythm and no murmurs RATE: regular rate RHYTHM: regular rhythm GI: COMMON NORMALS: soft to palpation and non-tender INSPECTION: No abdominal distension AUSCULTATION: Yes normoactive bowel sounds PALPATION: Yes soft Extremity: NARRATIVE EXTREMITY EXAM: Slightly improved erythema in the left lower extremity, improved erythema in the foot and ankle with continued erythema to the left knee. Edema slightly improved Neuro: COMMON NORMALS: oriented x3, CN's II-XII intact bilaterally, moves all extremities and no focal motor deficits SENSORIUM/ORIENTATION: Yes alert, Yes oriented to person, Yes oriented to place and Yes oriented to time SPEECH: speech normal Psych: COMMON NORMALS: mental status grossly normal and cooperative Skin: OTHER: Skin sloughing to the left lower extremity Data : 05/27/19 05:35 05/27/19 05:35 A&P Assessment and plan (1) Cellulitis: De-escalate antibiotic coverage to clindamycin Recent Fem/pop bypass and debridement requiring wound VAC placement in March 2019 at [facility] Lower extremity venous duplex negative for DVT, arterial duplex is unchanged from last week Fever has improved, white blood cell count trending down and CRP improved. Status: Acute Code(s): L03.90 - Cellulitis, unspecified (2) Peripheral vascular disease: Status post recent femoral-popliteal bypass surgery at [facility] by Dr. Levin Had difficulty healing following this procedure requiring multiple wound explorations and ultimately wound VAC placement, wound is now healed without any identifiable drainage Status: Acute Code(s): I73.9 - Peripheral vascular disease, unspecified (3) Coronary artery disease: Continue on home aspirin, Coreg, Imdur, lisinopril, statin Status: Acute Code(s): I25.10 - Atherosclerotic heart disease of [place] coronary artery without angina pectoris (4) Hypertension: Continue on home medications: Coreg 3.125 mg twice daily, Imdur 30 mg daily, lisinopril 20 mg twice daily, amlodipine 10 mg daily Status: Acute Code(s): I10 - Essential (primary) hypertension (5) Diabetes mellitus type 2, insulin dependent: Continue with insulin sliding scale as needed Lantus 30 units at bedtime Status: Acute Code(s): E11.9 - Type 2 diabetes mellitus without complications; Z79.4 - medical terminologist (current) use of insulin Additional A&P Information Fever: Secondary to sepsis and cellulitis, now resolved Anemia: Chronic, normocytic on prior lab work from outside facility, hemoglobin remained stable Neuropathy of the lower extremities: Continue Lyrica 3 times daily DVT prophylaxis: Lovenox Diet: Carbohydrate consistent Attestations Medical Necessity Statement*: Patient requires further hospitalization due to lower extremity cellulitis with fever and sepsis, slowly improving Coding Level of Care Code Acute Director Of Brand Marketing for [facility] Fwd Diagnoses Cellulitis L03.90 Peripheral vascular disease I73.9 Coronary artery disease I25.10 Hypertension I10 Diabetes mellitus type 2, insulin dependent E11.9; Z79.4
[2019-05-27 10:55] LABS: Glucose Point of Care 184 mg/dL (70-110)
[2019-05-27 12:00] VITALS: BP 174/78; PULSE 73; RESP 18; TEMP 36.8; O2SAT 92
[2019-05-27 15:48] VITALS: BP 167/79; PULSE 75; RESP 18; TEMP 36.9; O2SAT 91
[2019-05-27] MEDS: lactobacillus 1 Tablet 1 TAB PO ×3 (16:17→21:35)
[2019-05-27] MEDS: clindamycin 600 MG/50 ML PREMIX 100 MG IV ×2 (16:17→21:33)
[2019-05-27] MEDS: enoxaparin 40 mg/0.4 mL Syringe SUBCUT (16:17)
[2019-05-27 16:57] LABS: Glucose Point of Care 232 mg/dL (70-110)
[2019-05-27 19:22] VITALS: BP 184/68; PULSE 78; RESP 19; TEMP 37.3; O2SAT 91
[2019-05-27 21:10] LABS: Glucose Point of Care 229 mg/dL (70-110)
[2019-05-27] MEDS: insulin glargine 100 units/1 mL 30 UNIT SUBCUT (21:33)
[2019-05-28] VITALS (10 sets, daily range): BP systolic 153–180; BP diastolic 51–91; PULSE 66–73; RESP 17–24; TEMP 36.6–37.1; O2SAT 90–94
[2019-05-28] MEDS: lisinopril 20 mg Tablet PO ×2 (03:16→14:37)
[2019-05-28] MEDS: clindamycin 600 MG/50 ML PREMIX 100 MG IV ×3 (05:28→21:46)
[2019-05-28 06:46] LABS: Glucose Point of Care 166 mg/dL (70-110)
[2019-05-28] MEDS: isosorbide mononitrate ER 30 mg Tablet PO (09:07)
[2019-05-28] MEDS: pregabalin 100 mg Capsule PO ×3 (09:07→21:47)
[2019-05-28] MEDS: atorvastatin 40 mg Tablet 20 MG PO (09:07)
[2019-05-28] MEDS: lactobacillus 1 Tablet 1 TAB PO ×4 (09:07→21:47)
[2019-05-28] MEDS: aspirin 81 mg EC Tablet PO (09:07)
[2019-05-28] MEDS: amlodipine 10 mg Tablet PO (09:07)
[2019-05-28] MEDS: carvedilol 3.125 mg Tablet PO ×2 (09:07→16:53)
--- NOTE | 2019-05-28 09:25 | P.PN_ITS ---
Subjective Subjective: Interval history: He feels like he is doing better. No chest pain or shortness of breath. No fevers. Redness has improved and swelling has improved as well. Medications: Reviewed: Yes Vitals/I&O/Wt Last Vital Signs Temp 98.1 F 05/28/19 07:48 Pulse 71 05/28/19 07:48 Resp 18 05/28/19 07:48 BP 165/78 05/28/19 07:48 Pulse Ox 90 05/28/19 07:48 05/27/19 05/28/19 05/28/19 22:59 06:59 14:59 Intake Total 1560 / 2280 600 / 600 Output Total 200 / 700 500 / 700 Balance 1360 / 1580 -500 / 1580 600 / 600 Weight last 48 hrs Weight 345 lb 1.6 oz Weight 343 lb 9 oz Physical Exam Narrative: EXAM NARRATIVE: General: No acute distress, Alert. Well nourished. Heart: Regular rate and rhythm. No murmurs, rubs or gallops. Normal capillary refill. Lungs: Clear to auscultation. No wheezes, rhonchi or rales. Abdomen: Positive bowel sounds. Non-tender, non-distended. No hepatosplenomegaly. No gaurding. Extremities: No clubbing, cyanosis, negative Homans. Extensive erythema in the left lower extremity. 1+ edema. Data : 05/27/19 05:35 05/27/19 05:35 A&P Assessment and plan (1) Cellulitis: This seems to be improving. Will repeat labs in the morning. Continue IV antibiotics for another couple of days. Continue wraps per physical therapy. 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 Coding Level of Care Code Acute Binder Sorter for [facility] Fwd Diagnoses Cellulitis L03.90 Diabetes mellitus type 2, insulin dependent E11.9; Z79.4 Coronary artery disease I25.10 Peripheral vascular disease I73.9
[2019-05-28 11:19] LABS: Glucose Point of Care 219 mg/dL (70-110)
[2019-05-28] MEDS: enoxaparin 40 mg/0.4 mL Syringe SUBCUT (13:31)
[2019-05-28] MEDS: HYDROcodone-acetaminophen 5-325 mg Tablet 1 TAB PO (13:35)
[2019-05-28 16:08] LABS: Glucose Point of Care 199 mg/dL (70-110)
[2019-05-28] MEDS: insulin glargine 100 units/1 mL 30 UNIT SUBCUT (21:46)
[2019-05-28 21:53] LABS: Glucose Point of Care 264 mg/dL (70-110)
[2019-05-29] VITALS (7 sets, daily range): BP systolic 152–181; BP diastolic 70–81; PULSE 64–70; RESP 18–24; TEMP 36.6–37.1; O2SAT 91–94
[2019-05-29] MEDS: lisinopril 20 mg Tablet PO ×2 (03:55→14:05)
[2019-05-29] MEDS: HYDROcodone-acetaminophen 5-325 mg Tablet 1 TAB PO ×3 (03:57→17:15)
[2019-05-29] MEDS: clindamycin 600 MG/50 ML PREMIX 100 MG IV ×3 (04:00→20:17)
[2019-05-29 05:46] LABS: Basophils % 0.5 %; Eosinophils # 0.2 10^3/uL (0.0-0.8); Eosinophils % 3.6 %; Hematocrit 34.5 % (42.0-52.0); Hemoglobin 10.7 g/dL (11.7-16.6); Lymphocytes % 15.1 %; Mean Corpuscular Hemoglobin 25.1 pg (28.0-34.0); Mean Corpuscular Volume 80.8 fL (80-94); Mean Platelet Volume 9.6 fL (7.4-10.4); Monocytes # 0.5 10^3/uL (0.2-0.9); Monocytes % 7.8 %; Neutrophils # 4.6 10^3/uL (1.8-7.7); Neutrophils % 71.8 %; Nucleated Red Blood Cells % 0 %; Platelet Count 231 10^3/cmm (130-400); Red Blood Count 4.27 10^6/uL (4.1-5.3); Red Cell Distribution Width 14.6 % (12.1-15.1); White Blood Count 6.4 10^3/uL (4.0-10.0)
[2019-05-29 06:03] LABS: Alanine Aminotransferase 51 U/L (0-41); Albumin Level 2.9 g/dL (3.5-5.2); Alkaline Phosphatase 240 IU/L (40-130); Anion Gap 16.4 (5-19); Aspartate Amino Transferase 42 U/L (0-40); Blood Urea Nitrogen 5 mg/dL (6-20); Calcium 9.1 mg/dL (8.5-10.5); Carbon Dioxide 25 mmol/L (22-29); Chloride 95 mmol/L (98-107); Globulin 4.2 g/dL (1.3-4.6); Glomerular Filtration Rate 221.7 mL/min (90-130); Glucose 153 mg/dL (74-109); Potassium 4.4 mmol/L (3.5-5.1); Sodium 132 mmol/L (136-145); Total Bilirubin 0.5 mg/dL (0.15-1.2); Total Protein 7.1 g/dL (6.6-8.7)
[2019-05-29 06:36] LABS: Glucose Point of Care 152 mg/dL (70-110)
[2019-05-29 06:39] LABS: C Reactive Protein 35.7 mg/L (0.0-4.9)
[2019-05-29] MEDS: carvedilol 3.125 mg Tablet PO ×2 (08:38→17:12)
[2019-05-29] MEDS: aspirin 81 mg EC Tablet PO (08:38)
[2019-05-29] MEDS: isosorbide mononitrate ER 30 mg Tablet PO (08:38)
[2019-05-29] MEDS: amlodipine 10 mg Tablet PO (08:38)
[2019-05-29] MEDS: atorvastatin 40 mg Tablet 20 MG PO (08:38)
[2019-05-29] MEDS: lactobacillus 1 Tablet 1 TAB PO ×4 (08:38→20:17)
--- NOTE | 2019-05-29 08:57 | P.PN_ITS ---
Subjective Subjective: Interval history: He feels like he is doing better. No chest pain or shortness of breath. No fevers. Redness has improved and swelling has improved as well. Apparently has been dealing with this off and on since January though. Medications: Reviewed: Yes Vitals/I&O/Wt Last Vital Signs Temp 97.9 F 05/29/19 07:54 Pulse 67 05/29/19 07:54 Resp 18 05/29/19 07:54 BP 168/81 05/29/19 07:54 Pulse Ox 91 05/29/19 07:54 05/28/19 05/29/19 05/29/19 22:59 06:59 14:59 Intake Total 560 / 1980 290 / 1980 800 / 800 Output Total 400 / 400 Balance 160 / 1580 290 / 1580 800 / 800 Weight last 48 hrs Weight 334 lb 8 oz Weight 345 lb 1.6 oz Physical Exam Narrative: EXAM NARRATIVE: General: No acute distress, Alert. Well nourished. Heart: Regular rate and rhythm. No murmurs, rubs or gallops. Normal capillary refill. Lungs: Clear to auscultation. No wheezes, rhonchi or rales. Abdomen: Positive bowel sounds. Non-tender, non-distended. No hepatosplenomegaly. No gaurding. Extremities: No clubbing, cyanosis, negative Homans. Extensive erythema in the left lower extremity but improved some since yesterday.. Trace to 1+ edema. Data : 05/31/19 08:25 05/31/19 08:25 Other Labs: Laboratory Tests 05/29/19 05:25 C-Reactive Protein 35.7 H A&P Assessment and plan (1) Cellulitis: This seems to be improving. Will repeat labs in the morning. Continue IV antibiotics for another couple of days. . 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
--- NOTE | 2019-05-29 09:20 | PC.RESP ---
PATIENT ON HOME CPAP
--- NOTE | 2019-05-29 11:31 | PC.CHAP ---
Pastoral Care Encounter/Spiritual Assessment Type of Contact [] Declined retort furnace helper visit [] Patient/Family/Request visit [] Outpatient visit [] Follow-up visit [] Physician referral [] Code/Alert [] Routine visit [] Staff referral [] Actively dying [] Patient sleeping [] Family support [] [] Out of room [] Palliative care [] [] Receiving care in room [] Pre-surgical visit [] Trauma [] Long length of stay [] ICU visit [] Other: Relational/Emotional Strength [x] Patient feels connected with others/family/visitors/staff [] Distress [] Loneliness/isolation [] Abandonment Spirituality of Patient [x] Person of [place] [] Attends Methodist of their [place] [x] Believes in Prayer [] Reads Bible or Restorationism materials [] There are Spiritual issues to be addressed Phlebotomy Director Interventions [x] Prayer [x] Active listening [x] Non-anxious presence [x] Spiritual/emotional support [] Crisis/trauma care [] Spiritual counseling [] Bereavement support [] Provided bereavement packet [] Provided Bible/devotional materials [] Provided toy/stuffed animal, coloring book to patient or family member [] Completed spiritual assessment [] Provided Communion [] Anointing/[place] [] Salvation [] Other: Impact on Illness or Injury [] Angry [] Fearful [] Anxious [] Often cries [] Exhaustion [] Unable to work [] Unable to attend protestant [] Unable to walk/stand [] Unable to read [] Unable to drive [] Unable to eat/drink [] Unable to sleep [] Unable to be with family [] Other: Summary Phlebotomy Director prayed with Patient. Time spent with patient 5 minutes
[2019-05-29 11:45] LABS: Glucose Point of Care 191 mg/dL (70-110)
[2019-05-29] MEDS: enoxaparin 40 mg/0.4 mL Syringe SUBCUT (14:04)
[2019-05-29 16:26] LABS: Glucose Point of Care 271 mg/dL (70-110)
[2019-05-29] MEDS: triamcinolone 0.1% cream 15 gm 1 APPLIC TOPICAL (20:18)
[2019-05-29 21:12] LABS: Glucose Point of Care 201 mg/dL (70-110)
[2019-05-29] MEDS: insulin glargine 100 units/1 mL 30 UNIT SUBCUT (21:44)
[2019-05-30] VITALS: BP 150/72; PULSE 74; RESP 20; TEMP 36.7; O2SAT 92
[2019-05-30 04:00] VITALS: BP 156/80; PULSE 65; RESP 20; TEMP 36.8; O2SAT 95
[2019-05-30] MEDS: lisinopril 20 mg Tablet PO ×2 (04:09→16:32)
[2019-05-30] MEDS: clindamycin 600 MG/50 ML PREMIX 100 MG IV ×3 (04:09→21:30)
[2019-05-30 05:58] LABS: Basophils % 0.5 %; Eosinophils # 0.2 10^3/uL (0.0-0.8); Eosinophils % 3.4 %; Hematocrit 34.2 % (42.0-52.0); Hemoglobin 10.5 g/dL (11.7-16.6); Lymphocytes % 15.8 %; Mean Corpuscular HGB Conc 30.7 g/dL (30.0-36.0); Mean Corpuscular Hemoglobin 24.8 pg (28.0-34.0); Mean Corpuscular Volume 80.7 fL (80-94); Mean Platelet Volume 9.7 fL (7.4-10.4); Monocytes # 0.5 10^3/uL (0.2-0.9); Monocytes % 8.4 %; Neutrophils # 4.6 10^3/uL (1.8-7.7); Neutrophils % 71.1 %; Nucleated Red Blood Cells % 0 %; Platelet Count 242 10^3/cmm (130-400); Red Blood Count 4.24 10^6/uL (4.1-5.3); Red Cell Distribution Width 14.6 % (12.1-15.1); White Blood Count 6.4 10^3/uL (4.0-10.0)
[2019-05-30 06:19] LABS: Alanine Aminotransferase 43 U/L (0-41); Alkaline Phosphatase 220 IU/L (40-130); Anion Gap 14.4 (5-19); Aspartate Amino Transferase 36 U/L (0-40); Blood Urea Nitrogen 6 mg/dL (6-20); Carbon Dioxide 26 mmol/L (22-29); Chloride 96 mmol/L (98-107); Globulin 4.8 g/dL (1.3-4.6); Glomerular Filtration Rate 171.4 mL/min (90-130); Glucose 160 mg/dL (74-109); Potassium 4.4 mmol/L (3.5-5.1); Sodium 132 mmol/L (136-145); Total Bilirubin 0.4 mg/dL (0.15-1.2); Total Protein 7.8 g/dL (6.6-8.7)
[2019-05-30 06:45] LABS: C Reactive Protein 21.6 mg/L (0.0-4.9)
[2019-05-30 06:53] LABS: Glucose Point of Care 132 mg/dL (70-110)
[2019-05-30 07:43] VITALS: BP 168/79; PULSE 70; RESP 16; TEMP 36.6; O2SAT 95
[2019-05-30] MEDS: atorvastatin 40 mg Tablet 20 MG PO (08:58)
[2019-05-30] MEDS: aspirin 81 mg EC Tablet PO (08:58)
[2019-05-30] MEDS: amlodipine 10 mg Tablet PO (08:58)
[2019-05-30] MEDS: isosorbide mononitrate ER 30 mg Tablet PO (08:58)
[2019-05-30] MEDS: carvedilol 3.125 mg Tablet PO ×2 (08:59→18:14)
[2019-05-30] MEDS: HYDROcodone-acetaminophen 5-325 mg Tablet 1 TAB PO ×2 (09:03→19:45)
[2019-05-30] MEDS: eucerin cream 113 gm Jar 1 APPLIC TOPICAL ×2 (09:05→18:15)
[2019-05-30 11:27] VITALS: BP 156/72; PULSE 62; RESP 18; TEMP 36.5; O2SAT 94
[2019-05-30 11:52] LABS: Glucose Point of Care 206 mg/dL (70-110)
[2019-05-30] MEDS: enoxaparin 40 mg/0.4 mL Syringe SUBCUT (14:03)
[2019-05-30 15:45] VITALS: BP 144/72; PULSE 68; RESP 16; TEMP 36.7; O2SAT 96
[2019-05-30 17:06] LABS: Glucose Point of Care 275 mg/dL (70-110)
[2019-05-30] MEDS: lactobacillus 1 Tablet 1 TAB PO ×2 (18:14→21:30)
--- NOTE | 2019-05-30 18:27 | PM.PN ---
Subjective Subjective: Interval history: This morning patient is lying in bed, is at bedside, states that the area of cellulitis, erythema, tenderness has significantly gone down, but still has a patch of erythema on his left barrera, no fevers, no chills, no nausea, no vomiting, overall doing better Vitals/I&O/Wt Last Vital Signs Temp 98.0 F 05/30/19 15:45 Pulse 68 05/30/19 15:45 Resp 16 05/30/19 15:45 BP 144/72 05/30/19 15:45 Pulse Ox 96 05/30/19 15:45 05/30/19 05/30/19 05/30/19 06:59 14:59 22:59 Intake Total 50 / 2810 1320 / 1320 720 / 2040 Balance 50 / 2810 1320 / 1320 720 / 2040 Weight last 48 hrs Weight 150.338 kg Weight 151.727 kg Physical Exam Const: COMMON NORMALS: no apparent distress and oriented x3 Neck/C-Spine: COMMON NORMALS: no JVD Resp: COMMON NORMALS: normal respiratory effort, no retractions, no use of accessory muscles and clear to auscultation bilaterally AUSCULTATION: clear to auscultation bilaterally Cardio: COMMON NORMALS: no JVD, regular rate, regular rhythm, S1 normal heart sound and S2 normal heart sound RATE: regular rate RHYTHM: regular rhythm HEART SOUNDS: S1 normal and S2 normal GI: COMMON NORMALS: normal to inspection, nondistended, normoactive bowel sounds, soft to palpation, non-tender, no hepatosplenomegaly, no masses and no bruits PALPATION: Yes soft and Yes no hepatosplenomegaly Extremity: COMMON NORMALS: normal capillary refill and no pedal edema Neuro: COMMON NORMALS: oriented x3 Psych: COMMON NORMALS: mental status grossly normal Skin: NARRATIVE SKIN EXAM: Left barrera, a 8 x 10 cm area of erythema, swelling, tenderness Data : 05/30/19 05:31 05/30/19 05:31 Micro: Microbiology 05/24/19 14:38 Blood Culture - Final Blood NO GROWTH AFTER 5 DAYS 05/24/19 14:32 Blood Culture - Final Blood NO GROWTH AFTER 5 DAYS A&P Assessment and plan (1) Cellulitis: Continue clindamycin Recent Fem/pop bypass and debridement requiring wound VAC placement in March 2019 at [facility] Lower extremity venous duplex negative for DVT, arterial duplex is unchanged from last week Afebrile, white blood cell count 6.4, clinically improving Status: Acute Code(s): L03.90 - Cellulitis, unspecified (2) Peripheral vascular disease: Status post recent femoral-popliteal bypass surgery at [facility] by Dr. Levin Had difficulty healing following this procedure requiring multiple wound explorations and ultimately wound VAC placement, wound is now healed without any identifiable drainage Status: Acute Code(s): I73.9 - Peripheral vascular disease, unspecified (3) Coronary artery disease: Continue on home aspirin, Coreg, Imdur, lisinopril, statin Status: Acute Code(s): I25.10 - Atherosclerotic heart disease of [place] coronary artery without angina pectoris (4) Hypertension: Continue on home medications: Coreg 3.125 mg twice daily, Imdur 30 mg daily, lisinopril 20 mg twice daily, amlodipine 10 mg daily Status: Acute Code(s): I10 - Essential (primary) hypertension (5) Diabetes mellitus type 2, insulin dependent: Continue with insulin sliding scale as needed Lantus 30 units at bedtime Status: Acute Code(s): E11.9 - Type 2 diabetes mellitus without complications; Z79.4 - retirement (current) use of insulin Additional A&P Information Neuropathy of the lower extremities: Continue Lyrica 3 times daily DVT prophylaxis: Lovenox Diet: Carbohydrate consistent Attestations Medical Necessity Statement*: Requires continued hospitalization, for left lower extremity cellulitis Coding Level of Care Code Acute 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
[2019-05-30 20:00] VITALS: BP 165/79; PULSE 64; RESP 20; TEMP 36.7; O2SAT 94
[2019-05-30] MEDS: insulin glargine 100 units/1 mL 30 UNIT SUBCUT (21:17)
[2019-05-30] MEDS: pregabalin 100 mg Capsule PO (21:18)
[2019-05-30 22:07] LABS: Glucose Point of Care 239 mg/dL (70-110)
[2019-05-31] VITALS: BP 168/79; PULSE 65; RESP 22; TEMP 36.4; O2SAT 96
[2019-05-31] MEDS: lisinopril 20 mg Tablet PO (03:34)
[2019-05-31 04:00] VITALS: BP 157/79; PULSE 60; RESP 20; TEMP 37.2; O2SAT 94
[2019-05-31] MEDS: clindamycin 600 MG/50 ML PREMIX 100 MG IV (05:27)
[2019-05-31] MEDS: HYDROcodone-acetaminophen 5-325 mg Tablet 1 TAB PO (05:29)
[2019-05-31 07:18] LABS: Glucose Point of Care 173 mg/dL (70-110)
[2019-05-31] MEDS: pregabalin 100 mg Capsule PO (07:33)
[2019-05-31 07:54] VITALS: BP 156/70; PULSE 58; RESP 18; TEMP 36.6; O2SAT 97
[2019-05-31 08:49] LABS: Basophils % 0.5 %; Eosinophils # 0.2 10^3/uL (0.0-0.8); Eosinophils % 3.1 %; Hematocrit 38.5 % (42.0-52.0); Hemoglobin 11.8 g/dL (11.7-16.6); Lymphocytes # 1.2 10^3/uL (0.8-4.8); Mean Corpuscular HGB Conc 30.6 g/dL (30.0-36.0); Mean Corpuscular Hemoglobin 24.1 pg (28.0-34.0); Mean Corpuscular Volume 78.6 fL (80-94); Mean Platelet Volume 9.4 fL (7.4-10.4); Monocytes # 0.5 10^3/uL (0.2-0.9); Neutrophils # 4.6 10^3/uL (1.8-7.7); Neutrophils % 70.8 %; Nucleated Red Blood Cells % 0 %; Platelet Count 307 10^3/cmm (130-400); Red Cell Distribution Width 14.6 % (12.1-15.1); White Blood Count 6.6 10^3/uL (4.0-10.0)
[2019-05-31] MEDS: amlodipine 10 mg Tablet PO (08:51)
[2019-05-31] MEDS: lactobacillus 1 Tablet 1 TAB PO (08:51)
[2019-05-31] MEDS: isosorbide mononitrate ER 30 mg Tablet PO (08:51)
[2019-05-31] MEDS: carvedilol 3.125 mg Tablet PO (08:51)
[2019-05-31] MEDS: aspirin 81 mg EC Tablet PO (08:51)
[2019-05-31] MEDS: atorvastatin 40 mg Tablet 20 MG PO (08:52)
[2019-05-31] MEDS: eucerin cream 113 gm Jar 1 APPLIC TOPICAL (08:53)
[2019-05-31] MEDS: triamcinolone 0.1% cream 15 gm 1 APPLIC TOPICAL (08:54)
[2019-05-31 09:03] LABS: Alanine Aminotransferase 46 U/L (0-41); Albumin Level 3.5 g/dL (3.5-5.2); Alkaline Phosphatase 239 IU/L (40-130); Anion Gap 15.5 (5-19); Aspartate Amino Transferase 41 U/L (0-40); Blood Urea Nitrogen 7 mg/dL (6-20); Calcium 9.5 mg/dL (8.5-10.5); Carbon Dioxide 26 mmol/L (22-29); Chloride 93 mmol/L (98-107); Globulin 5.5 g/dL (1.3-4.6); Glomerular Filtration Rate 171.4 mL/min (90-130); Glucose 154 mg/dL (74-109); Potassium 4.5 mmol/L (3.5-5.1); Sodium 130 mmol/L (136-145); Total Bilirubin 0.6 mg/dL (0.15-1.2)
[2019-05-31 11:47] VITALS: BP 156/70; PULSE 58; RESP 18; TEMP 36.6; O2SAT 97
[2019-05-31 11:56] LABS: Glucose Point of Care 220 mg/dL (70-110)
[2019-05-31 12:00] VITALS: BP 158/74; PULSE 68; RESP 18; TEMP 36.9; O2SAT 94
--- NOTE | 2019-05-31 13:55 | P.DS_ITS ---
Discharge Providers Date of Admission: 05/24/19 11:58 Date of Discharge: 05/31/19 Attending Provider at Admission: Susan Mayorga MD Attending Provider at Discharge: Aquiles Landry MD Primary Care Provider: Servando Mederos Jr, MD Diagnoses at Discharge Discharge Diagnosis (1) Cellulitis: Status: Acute (2) Peripheral vascular disease: Status: Acute (3) Coronary artery disease: Status: Acute (4) Hypertension: Status: Acute (5) Diabetes mellitus type 2, insulin dependent: Status: Acute Reason for Visit Reason for Visit: Reason For Visit: LEFT GROIN CELLULITIS Hospital Course Discharge Summary: Mervin Olivas is a 59 year old male Mervin Olivas is a 59 year old male with a past medical history of peripheral vascular disease, claudication, diabetes and hypertension that presents [facility] due to complaints of left lower extremity cellulitis. Of note patient had admission on March 2019 for concerns of cellulitis of the left lower extremity and groin after femoral-popliteal bypass to the left leg that was performed on 01/27/2019, patient is followed in the vascular surgery Dr. Levin, has been on antibiotics, had a wound VAC in place in the past. Patient was admitted for cellulitis of left lower extremity, received clindamycin, left lower extremity was negative for DVT, arterial duplex showed abnormal resting ABIs in the left side consistent with moderate peripheral arterial disease. Patient clinically improved, swelling and erythema significantly improved, blood cultures were unremarkable, patient was discharged on oral clindamycin with close follow-up with his primary care provider 1 week. Patient was also advised to follow-up with his vascular surgeon as outpatient. Physical Exam Const: COMMON NORMALS: no apparent distress and oriented x3 Neck/C-Spine: COMMON NORMALS: no JVD Resp: COMMON NORMALS: normal respiratory effort, no retractions, no use of accessory muscles and clear to auscultation bilaterally AUSCULTATION: clear to auscultation bilaterally Cardio: COMMON NORMALS: no JVD, regular rate, regular rhythm, S1 normal heart sound and S2 normal heart sound RATE: regular rate RHYTHM: regular rhythm HEART SOUNDS: S1 normal and S2 normal GI: COMMON NORMALS: normal to inspection, nondistended, normoactive bowel sounds, soft to palpation, non-tender, no hepatosplenomegaly, no masses and no bruits PALPATION: Yes soft and Yes no hepatosplenomegaly Neuro: COMMON NORMALS: oriented x3 Skin: NARRATIVE SKIN EXAM: Left barrera, a 5 x 5 cm area of erythema, swelling, tenderness has significantly improved Discharge Data Data Completed and Pending: Completed Studies During Hospitalization Category Date [place] [id number] Urge nt Ultrasound 05/24/19 14:03 [place] [id number] Urgent Ultrasound 05/24/19 14:03 Completed Labs from last 24 hours 05/31/19 05/31/19 05/31/19 11:37 08:25 08:25 WBC 6.6 RBC 4.90 Hgb 11.8 Hct 38.5 L MCV 78.6 L MCH 24.1 L MCHC 30.6 RDW 14.6 Plt Count 307 MPV 9.4 Neut % (Auto) 70.8 Lymph % (Auto) 18.0 [place] % (Auto) 7.0 Eos % (Auto) 3.1 Baso % (Auto) 0.5 Neut # (Auto) 4.6 Lymph # (Auto) 1.2 [place] # (Auto) 0.5 Eos # (Auto) 0.2 Baso # (Auto) 0.0 Nucleated RBC % (a uto) 0 Nucleated RBCs # 0.0 Sodium 130 L Potassium 4.5 Chloride 93 L Carbon Dioxide 26 Anion Gap 15.5 BUN 7 Creatinine 0.5 L GFR Calculation 171.4 H Glucose 154 H POC Glucose 220 Calcium 9.5 Total Bilirubin 0.6 AST 41 H ALT 46 H Alkaline Phosphata se 239 H Total Protein 9.0 H Albumin 3.5 Globulin 5.5 H 05/31/19 05/30/19 05/30/19 06:48 21:28 16:45 WBC RBC Hgb Hct MCV MCH MCHC RDW Plt Count MPV Neut % (Auto) Lymph % (Auto) [place] % (Auto) Eos % (Auto) Baso % (Auto) Neut # (Auto) Lymph # (Auto) [place] # (Auto) Eos # (Auto) Baso # (Auto) Nucleated RBC % (a uto) Nucleated RBCs # Sodium Potassium Chloride Carbon Dioxide Anion Gap BUN Creatinine GFR Calculation Glucose POC Glucose 173 239 275 Calcium Total Bilirubin AST ALT Alkaline Phosphata se Total Protein Albumin Globulin Vitals: Last Vital Signs Temp 98.4 F 05/31/19 12:00 Pulse 68 05/31/19 12:00 Resp 18 01/28/20 12:00 BP 158/74 05/31/19 12:00 Pulse Ox 94 05/31/19 12:00 Discharge Plan Discharge Patient Disposition: Home, Self-Care Condition: Stable Prescriptions: New Floranex 1 million cell Tablet 1 tab PO QID 10 Days Qty: 40 RF: 0 clindamycin HCl 300 mg capsule 300 mg PO Q6H 10 Days Qty: 40 RF: 0 Continued ibuprofen 800 mg tablet 800 mg PO TID PRN (Reason: Pain) RF: 0 triamcinolone acetonide 0.1 % cream 1 applic TOPICAL TID RF: 0 carvedilol 3.125 mg tablet 3.125 mg PO BID RF: 0 amlodipine 10 mg tablet 10 mg PO DAILY RF: 0 hydrocodone-acetaminophen 7.5-325 mg tablet 1 tab PO Q4H PRN (Reason: Pain) RF: 0 Lantus Solostar U-100 Insulin 100 unit/mL (3 mL) insulin pen 35 unit SUBCUT QAM RF: 0 lisinopril 20 mg tablet 20 mg PO Q12H RF: 0 isosorbide mononitrate 30 mg tablet extended release 24 hr 30 mg PO DAILY RF: 0 Aspirin Low Dose 81 mg Tablet,Delayed Release (Dr/Ec) 81 mg PO DAILY RF: 0 simvastatin 40 mg tablet 40 mg PO BEDTIME RF: 0 nitroglycerin 0.4 mg Tablet, Sublingual 0.4 mg SUBLINGUAL Q5M PRN (Reason: Chest Pain) RF: 0 Novolog Flexpen U-100 Insulin 10 units SUBCUT TID RF: 0 Lyrica 100 mg Capsule 100 mg PO TID RF: 0 No Action (DME) BD Ultra-Fine Aye Pen Needle 32 gauge x 5/32 needle MISCELLANEOUS RF: 0 Discharge Orders: Discharge Order (Routine); Ordered 05/31/19 Ordered By: Aquiles Landry Referrals: Servando Mederos Jr, MD [Primary Care Provider] - 06/08/19 11:30 am (PLEASE CALL TO SET UP AN APPOINTMENT TO BE SEEN BY DR. 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
== END 2019-05-31 12:40 | disposition home or self-care (01) | DRG 603 ==
PROVIDERS: Family Medicine; Admitting Provider Family Medicine; Family Provider Family Medicine; PCP Family Medicine; Visit Provider Family Medicine
DX: L03.314 Cellulitis of groin (principal); E13.51 Other specified diabetes mellitus with diabetic peripheral angiopathy without gangrene; I70.219 Atherosclerosis of native arteries of extremities with intermittent claudication, unspecified extremity; I10 Essential (primary) hypertension; I25.10 Atherosclerotic heart disease of native coronary artery without angina pectoris; G47.33 Obstructive sleep apnea (adult) (pediatric); Z87.891 Personal history of nicotine dependence
CPT/HCPCS: 12345; 36415; 36416; 80048; 80053; 80202; 82962; 83605; 85025; 85651; 86140; 87040; 90732; 93926; 93971; 96365; 96366; 96372; 97140; J1650; J1815; J2543; J3370; J3490; J7030; J7040

== ENCOUNTER 2019-08-25 07:46 | Outpatient (CLI) | payer BC, SELFPAY ==
--- NOTE | 2019-08-25 08:04 | MR_ITS ---
WS: [id number] MRI LEFT femur. Noncontrast. HISTORY: Edema and swelling. COMPARISON: No similar studies. There is extensive soft tissue edema throughout the entire thigh. There is also moderate-sized suprap atellar joint effusion. There is soft tissue edema and a small amount of edema within the muscles als o. No osseous abnormality. The cortex of the bone is intact. Postsurgical defect is noted at the LEFT groin from prior surgery. There are a few small lymph nodes at the LEFT groin. No soft tissue mass w ithin the muscles. Small Dong's cyst. Soft tissue edema in the scrotum and perineum. MR/MR lower leg LT wo con* [id number] IMPRESSION: 1. Large amount of diffuse soft tissue edema and mild intramuscular edema of t he LEFT thigh and femur. Etiology is uncertain. 2. Small suprapatellar joint effusion and Dong's cyst. 3. No bone destruction. 4. Postsurgical scar at the LEFT groin with a few small adjacent lymph nodes.
--- NOTE | 2019-08-25 08:04 | MR_ITS ---
WS: [id number] MRI pelvis, noncontrast. HISTORY: LEFT groin to toe swelling. Multiplanar, multisequence imaging of the pelvis is performed. No ascites within the pelvis. Urinary bladder is well distended. There are numerous indeterminate and very slightly enlarged lymph nodes along the LEFT iliac chain into the pelvis. The largest lymph nod es along the LEFT iliac chain with maximum diameter of 14 mm. Some of these lymph nodes are ovoid and somewhat more rounded. Majority of these lymph nodes are centered at the surgical site of the LEFT g roin. Etiology of the lymph nodes is not determined. Urinary bladder is markedly distended. Postsurgical changes at the LEFT groin. There is slight dilatation and change in the signal intensity in the focal LEFT common femoral artery at the surgical site. No thrombus was noted on a prior venous ultrasound from 05/24/2019. MR/MR pelvis wo con* [id number] IMPRESSION: 1. Numerous indeterminate lymph nodes along the LEFT iliac chain into the pelvi s. The largest lymph node is 14 mm. May be reactive or early neoplastic. These lymph nodes may be related to a mild soft tissue infection. Lymph nodes are elo tered predominantly at the LEFT groin at the region of the surgery scar. Recomm end follow-up CT abdomen and pelvis with IV and oral contrast to evaluate exten t of adenopathy. 2. Focal change in signal intensity in the LEFT common femoral vein at the surg ical site. Recommend follow-up venous ultrasound to exclude thrombus. Prior ult rasound was performed on 05/24/2019 and 05/12/2019 which was negative for thrombus . Recommend evaluating for development of thrombus.
== END 2019-08-25 07:47 | disposition home or self-care (01) ==
LOC: RADWPI 07:50
PROVIDERS: Family Provider Family Medicine; PCP Family Medicine; Visit Provider Family Medicine
DX: R60.0 Localized edema (principal); M71.22 Synovial cyst of popliteal space [Baker], left knee; M25.48 Effusion, other site
CPT/HCPCS: 72195; 73718

== ENCOUNTER 2019-09-12 11:59 | Outpatient (CLI) | payer BC, SELFPAY ==
--- NOTE | 2019-09-12 12:04 | CT_ITS ---
WS: [id number] CT ABDOMEN PELVIS TECHNIQUE: Noncontrast CT of the abdomen and contrast-enhanced CT of the abdomen and pelvis with rosey nal and sagittal reformatted images. CLINICAL INFORMATION: LEFT LEG EDEMA, PELVIC LYMPHADENOPATHY COMPARISON: MRI dated August 25, 2019 DLP: 3096.[address] scans at [facility] use at least one of these dose optimization techniques: automat ed exposure control; mA and/or kV adjustment per patient size (includes targeted exams where dose is matched to clinical indication); or iterative reconstruction. FINDINGS: Somewhat poor contrast bolus limits solid organ and vascular evaluation. Again seen are the previously described slightly enlarged lymph nodes along the left iliac chain exte nding into the pelvis. Largest lymph node measures approximately 14 mm unchanged on the recent MRI. A gain these lymph nodes are near the previous described surgical site left groin and likely reactive. No evidence of drainable abscess or fluid collection. Left femoropopliteal bypass partially visualize d. Cirrhotic configuration to the liver. Mild hepatomegaly. Splenomegaly. Gastric banding at the [facility] tion. Adrenal glands are normal. Normal renal parenchymal enhancement. No hydronephrosis. Prominent l ymph nodes at the cherelle hepatis likely reactive. Normal caliber abdominal aorta. Aortic calcification . No periaortic lymphadenopathy. Normal gallbladder. Lung bases are well aerated. Small noncalcified nodule left lower lobe measuring 6 mm. Additional small noncalcified nodule right lower lobe laterall y measuring 4 mm. Slight atelectasis right lung base. Normal sigmoid colon. Normal appendix. bladder appears normal. Normal ureters on the delayed imaging. Normal filling of the bladder. Small right renal cyst. CT/CT abdomen pelvis wo/w [id number] IMPRESSION: 1. Again seen are the slightly prominent lymph nodes along the left iliac britt n and left groin in the area of prior surgery. These are likely reactive. No ev idence of drainable abscess or fluid collection. 2. Largest lymph node measures approximately 14 mm in short axis dimension unc hanged. 3. Partially visualized femoropopliteal bypass graft. This can be further eval uated with ultrasound. 4. Cirrhotic liver with splenomegaly suggesting portal hypertension. 5. Prior gastric banding procedure. 6. 2 small noncalcified nodules in the lung bases measuring 4 to 6 mm. Recomme nd 6 month follow-up.
[2019-09-12] MEDS: iohexol 300 mg/mL 50 mL Btl IV (12:28)
[2019-09-12] MEDS: iohexol 300 mg/mL 100 mL Btl IV (13:40)
== END 2019-09-12 12:00 | disposition home or self-care (01) ==
LOC: RADWPI 12:03
PROVIDERS: Family Provider Family Medicine; PCP Family Medicine; Visit Provider Family Medicine
DX: R60.0 Localized edema (principal); R59.0 Localized enlarged lymph nodes; K74.60 Unspecified cirrhosis of liver; R91.8 Other nonspecific abnormal finding of lung field
CPT/HCPCS: 74178; Q9967

== ENCOUNTER 2020-03-01 11:39 | Outpatient (CLI) | payer BC, SELFPAY ==
[2020-03-01 12:02] LABS: Basophils # 0.1 10^3/uL (0.0-0.1); Basophils % 1.2 %; Eosinophils # 0.2 10^3/uL (0.0-0.8); Eosinophils % 3.6 %; Hematocrit 27.8 % (42.0-52.0); Hemoglobin 8.4 g/dL (11.7-16.6); Lymphocytes # 0.9 10^3/uL (0.8-4.8); Lymphocytes % 17.6 %; Mean Corpuscular HGB Conc 30.2 g/dL (30.0-36.0); Mean Corpuscular Hemoglobin 26.9 pg (28.0-34.0); Mean Corpuscular Volume 89.1 fL (80-94); Mean Platelet Volume 9.9 fL (7.4-10.4); Monocytes # 0.6 10^3/uL (0.2-0.9); Neutrophils # 3.32 10^3/uL (1.8-7.7); Neutrophils % 65.4 %; Nucleated Red Blood Cells % 0 %; Platelet Count 155 10^3/cmm (130-400); Red Blood Count 3.12 10^6/uL (4.1-5.3); Red Cell Distribution Width 15.8 % (12.1-15.1); White Blood Count 5.1 10^3/uL (4.0-10.0)
[2020-03-01 12:24] LABS: Alanine Aminotransferase 35 U/L (0-41); Albumin Level 3.1 g/dL (3.5-5.2); Alkaline Phosphatase 165 IU/L (40-130); Anion Gap 14.7 (5-19); Aspartate Amino Transferase 58 U/L (0-40); Blood Urea Nitrogen 12 mg/dL (6-20); Calcium 8.6 mg/dL (8.5-10.5); Carbon Dioxide 25 mmol/L (22-29); Chloride 97 mmol/L (98-107); Globulin 3.9 g/dL (1.3-4.6); Glomerular Filtration Rate 99.6 mL/min (90-130); Glucose 136 mg/dL (65-115); Osmolality Calculated 276 mOsm/kg (285-295); Potassium 4.7 mmol/L (3.5-5.1); Sodium 132 mmol/L (136-145); Total Bilirubin 0.3 mg/dL (0.15-1.2)
[2020-03-01 12:25] LABS: Vancomycin Trough 10.8 ug/mL (10-15)
== END 2020-03-01 11:40 | disposition home or self-care (01) ==
LOC: LAB 11:41
PROVIDERS: PCP Family Medicine; Visit Provider Internal Medicine Infectious Disease
DX: I73.9 Peripheral vascular disease, unspecified (principal); T82.7XXA Infection and inflammatory reaction due to other cardiac and vascular devices, implants and grafts, initial encounter; X58.XXXA Exposure to other specified factors, initial encounter
CPT/HCPCS: 80053; 80202; 85025

== ENCOUNTER 2020-03-03 20:57 | Outpatient (CLI) | payer BC, SELFPAY ==
[2020-03-03 22:07] LABS: Anion Gap 14.2 (5-19); Blood Urea Nitrogen 15 mg/dL (6-20); Calcium 8.2 mg/dL (8.5-10.5); Carbon Dioxide 26 mmol/L (22-29); Chloride 96 mmol/L (98-107); Glomerular Filtration Rate 99.6 mL/min (90-130); Glucose 193 mg/dL (65-115); Osmolality Calculated 280 mOsm/kg (285-295); Potassium 4.2 mmol/L (3.5-5.1); Sodium 132 mmol/L (136-145)
[2020-03-03 22:08] LABS: Vancomycin Trough 15.1 ug/mL (10-15)
== END 2020-03-03 20:58 | disposition home or self-care (01) ==
LOC: LAB 20:59
PROVIDERS: PCP Family Medicine; Visit Provider Internal Medicine Infectious Disease
DX: I73.9 Peripheral vascular disease, unspecified (principal)
CPT/HCPCS: 80048; 80202

== ENCOUNTER 2020-03-06 14:51 | Outpatient (CLI) | payer BC, SELFPAY ==
[2020-03-06 15:34] LABS: Vancomycin Trough 11.5 ug/mL (10-15)
[2020-03-06 15:35] LABS: Alanine Aminotransferase 49 U/L (0-41); Albumin Level 3.2 g/dL (3.5-5.2); Alkaline Phosphatase 187 IU/L (40-130); Anion Gap 14.4 (5-19); Aspartate Amino Transferase 46 U/L (0-40); Blood Urea Nitrogen 12 mg/dL (6-20); Calcium 8.3 mg/dL (8.5-10.5); Carbon Dioxide 25 mmol/L (22-29); Chloride 97 mmol/L (98-107); Globulin 3.7 g/dL (1.3-4.6); Glomerular Filtration Rate 99.6 mL/min (90-130); Glucose 288 mg/dL (65-115); Osmolality Calculated 284 mOsm/kg (285-295); Potassium 4.4 mmol/L (3.5-5.1); Sodium 132 mmol/L (136-145); Total Bilirubin 0.3 mg/dL (0.15-1.2); Total Protein 6.9 g/dL (6.6-8.7)
== END 2020-03-06 14:52 | disposition home or self-care (01) ==
LOC: LAB 14:52
PROVIDERS: PCP Family Medicine; Visit Provider Family Medicine
DX: I73.9 Peripheral vascular disease, unspecified (principal)
CPT/HCPCS: 80053; 80202

== ENCOUNTER 2020-03-09 09:42 | Outpatient (CLI) | payer BC, SELFPAY ==
[2020-03-09 10:12] LABS: Alanine Aminotransferase 42 U/L (0-41); Albumin Level 3.1 g/dL (3.5-5.2); Alkaline Phosphatase 183 IU/L (40-130); Anion Gap 14.6 (5-19); Aspartate Amino Transferase 46 U/L (0-40); Blood Urea Nitrogen 12 mg/dL (6-20); Calcium 8.4 mg/dL (8.5-10.5); Carbon Dioxide 25 mmol/L (22-29); Chloride 97 mmol/L (98-107); Globulin 3.7 g/dL (1.3-4.6); Glomerular Filtration Rate 116.2 mL/min (90-130); Glucose 272 mg/dL (65-115); Osmolality Calculated 283 mOsm/kg (285-295); Potassium 4.6 mmol/L (3.5-5.1); Sodium 132 mmol/L (136-145); Total Bilirubin 0.3 mg/dL (0.15-1.2); Total Protein 6.8 g/dL (6.6-8.7)
[2020-03-09 10:18] LABS: Vancomycin Trough 14.2 ug/mL (10-15)
== END 2020-03-09 09:43 | disposition home or self-care (01) ==
LOC: LAB 09:45
PROVIDERS: PCP Family Medicine; Visit Provider Family Medicine
DX: I73.9 Peripheral vascular disease, unspecified (principal)
CPT/HCPCS: 80053; 80202

== ENCOUNTER 2020-03-12 09:30 | Outpatient (CLI) | payer BC, SELFPAY ==
[2020-03-12 10:09] LABS: Vancomycin Trough 15.2 ug/mL (10-15)
[2020-03-12 10:10] LABS: Alanine Aminotransferase 31 U/L (0-41); Albumin Level 3.4 g/dL (3.5-5.2); Alkaline Phosphatase 179 IU/L (40-130); Anion Gap 14.2 (5-19); Aspartate Amino Transferase 34 U/L (0-40); Blood Urea Nitrogen 12 mg/dL (6-20); Calcium 8.7 mg/dL (8.5-10.5); Carbon Dioxide 24 mmol/L (22-29); Chloride 101 mmol/L (98-107); Glomerular Filtration Rate 116.2 mL/min (90-130); Glucose 119 mg/dL (65-115); Osmolality Calculated 281 mOsm/kg (285-295); Potassium 4.2 mmol/L (3.5-5.1); Sodium 135 mmol/L (136-145); Total Bilirubin 0.3 mg/dL (0.15-1.2); Total Protein 7.4 g/dL (6.6-8.7)
== END 2020-03-12 09:31 | disposition home or self-care (01) ==
LOC: LAB 09:32
PROVIDERS: PCP Family Medicine; Visit Provider Internal Medicine Infectious Disease
DX: T82.7XXA Infection and inflammatory reaction due to other cardiac and vascular devices, implants and grafts, initial encounter (principal); X58.XXXA Exposure to other specified factors, initial encounter
CPT/HCPCS: 80053; 80202

== ENCOUNTER 2020-03-15 17:35 | Outpatient (CLI) | payer BC, SELFPAY ==
[2020-03-15 18:37] LABS: Alanine Aminotransferase 30 U/L (0-41); Albumin Level 3.5 g/dL (3.5-5.2); Alkaline Phosphatase 171 IU/L (40-130); Anion Gap 14.8 (5-19); Aspartate Amino Transferase 43 U/L (0-40); Blood Urea Nitrogen 14 mg/dL (6-20); Calcium 8.5 mg/dL (8.5-10.5); Carbon Dioxide 25 mmol/L (22-29); Chloride 100 mmol/L (98-107); Globulin 3.5 g/dL (1.3-4.6); Glomerular Filtration Rate 116.2 mL/min (90-130); Glucose 170 mg/dL (65-115); Osmolality Calculated 284 mOsm/kg (285-295); Potassium 4.8 mmol/L (3.5-5.1); Sodium 135 mmol/L (136-145); Total Bilirubin 0.3 mg/dL (0.15-1.2)
[2020-03-15 18:38] LABS: Vancomycin Trough 14.4 ug/mL (10-15)
== END 2020-03-15 17:36 | disposition home or self-care (01) ==
LOC: LAB 17:37
PROVIDERS: PCP Family Medicine; Visit Provider Family Medicine
DX: T82.7XXA Infection and inflammatory reaction due to other cardiac and vascular devices, implants and grafts, initial encounter (principal); X58.XXXA Exposure to other specified factors, initial encounter
CPT/HCPCS: 80053; 80202

== ENCOUNTER 2020-03-19 10:13 | Outpatient (CLI) | payer BC, SELFPAY ==
[2020-03-19 10:35] LABS: Basophils % 0.8 %; Eosinophils # 0.1 10^3/uL (0.0-0.8); Eosinophils % 3.5 %; Hematocrit 27.4 % (42.0-52.0); Hemoglobin 8.3 g/dL (11.7-16.6); Lymphocytes # 0.5 10^3/uL (0.8-4.8); Lymphocytes % 13.4 %; Mean Corpuscular HGB Conc 30.3 g/dL (30.0-36.0); Mean Corpuscular Hemoglobin 26.7 pg (28.0-34.0); Mean Corpuscular Volume 88.1 fL (80-94); Mean Platelet Volume 10.8 fL (7.4-10.4); Monocytes # 0.3 10^3/uL (0.2-0.9); Monocytes % 8.6 %; Neutrophils % 73.4 %; Nucleated Red Blood Cells % 0 %; Platelet Count 117 10^3/cmm (130-400); Red Blood Count 3.11 10^6/uL (4.1-5.3); Red Cell Distribution Width 17.6 % (12.1-15.1)
[2020-03-19 10:50] LABS: Alanine Aminotransferase 30 U/L (0-41); Albumin Level 3.5 g/dL (3.5-5.2); Alkaline Phosphatase 157 IU/L (40-130); Anion Gap 15.3 (5-19); Aspartate Amino Transferase 35 U/L (0-40); Blood Urea Nitrogen 17 mg/dL (6-20); Calcium 8.7 mg/dL (8.5-10.5); Carbon Dioxide 24 mmol/L (22-29); Chloride 97 mmol/L (98-107); Globulin 3.4 g/dL (1.3-4.6); Glomerular Filtration Rate 99.6 mL/min (90-130); Glucose 329 mg/dL (65-115); Osmolality Calculated 288 mOsm/kg (285-295); Potassium 4.3 mmol/L (3.5-5.1); Sodium 132 mmol/L (136-145); Total Bilirubin 0.2 mg/dL (0.15-1.2); Total Protein 6.9 g/dL (6.6-8.7)
[2020-03-19 10:54] LABS: Vancomycin Trough 14.2 ug/mL (10-15)
== END 2020-03-19 10:14 | disposition home or self-care (01) ==
LOC: LAB 10:19
PROVIDERS: PCP Family Medicine; Visit Provider Internal Medicine Infectious Disease
DX: Z45.2 Encounter for adjustment and management of vascular access device (principal)
CPT/HCPCS: 80053; 80202; 85025

== ENCOUNTER 2020-03-22 10:32 | Outpatient (CLI) | payer BC, SELFPAY ==
[2020-03-22 11:30] LABS: Alanine Aminotransferase 25 U/L (0-41); Albumin Level 3.5 g/dL (3.5-5.2); Alkaline Phosphatase 150 IU/L (40-130); Anion Gap 16.3 (5-19); Aspartate Amino Transferase 31 U/L (0-40); Blood Urea Nitrogen 17 mg/dL (6-20); Calcium 8.6 mg/dL (8.5-10.5); Carbon Dioxide 24 mmol/L (22-29); Chloride 99 mmol/L (98-107); Globulin 3.3 g/dL (1.3-4.6); Glomerular Filtration Rate 116.2 mL/min (90-130); Glucose 203 mg/dL (65-115); Osmolality Calculated 287 mOsm/kg (285-295); Potassium 4.3 mmol/L (3.5-5.1); Sodium 135 mmol/L (136-145); Total Bilirubin 0.3 mg/dL (0.15-1.2); Total Protein 6.8 g/dL (6.6-8.7)
== END 2020-03-22 10:33 | disposition home or self-care (01) ==
LOC: LAB 10:34
PROVIDERS: PCP Family Medicine; Visit Provider Internal Medicine Infectious Disease
DX: T82.7XXA Infection and inflammatory reaction due to other cardiac and vascular devices, implants and grafts, initial encounter (principal); X58.XXXA Exposure to other specified factors, initial encounter
CPT/HCPCS: 80053; 80202

== ENCOUNTER 2020-03-26 12:50 | Outpatient (CLI) | payer BC, SELFPAY | END 2020-03-26 12:51 | disposition home or self-care (01) | LOC: LAB 12:56 | PROVIDERS: PCP Family Medicine; Visit Provider Family Medicine | DX: T82.7XXA Infection and inflammatory reaction due to other cardiac and vascular devices, implants and grafts, initial encounter (principal); X58.XXXA Exposure to other specified factors, initial encounter | CPT/HCPCS: 80202 ==

== ENCOUNTER 2020-03-28 12:09 | Outpatient (CLI) | payer BC, SELFPAY ==
[2020-03-28 12:40] LABS: Eosinophils # 0.1 10^3/uL (0.0-0.8); Eosinophils % 3.5 %; Hematocrit 30.9 % (42.0-52.0); Hemoglobin 8.7 g/dL (11.7-16.6); Lymphocytes # 0.4 10^3/uL (0.8-4.8); Lymphocytes % 13.5 %; Mean Corpuscular HGB Conc 28.2 g/dL (30.0-36.0); Mean Corpuscular Hemoglobin 27.4 pg (28.0-34.0); Mean Corpuscular Volume 97.5 fL (80-94); Mean Platelet Volume 11.2 fL (7.4-10.4); Monocytes # 0.4 10^3/uL (0.2-0.9); Monocytes % 11.3 %; Neutrophils # 2.15 10^3/uL (1.8-7.7); Neutrophils % 69.4 %; Nucleated Red Blood Cells % 0 %; Platelet Count 99 10^3/cmm (130-400); Red Blood Count 3.17 10^6/uL (4.1-5.3); White Blood Count 3.1 10^3/uL (4.0-10.0)
[2020-03-28 12:49] LABS: Alanine Aminotransferase 29 U/L (0-41); Albumin Level 3.5 g/dL (3.5-5.2); Alkaline Phosphatase 162 IU/L (40-130); Anion Gap 13.3 (5-19); Aspartate Amino Transferase 32 U/L (0-40); Blood Urea Nitrogen 13 mg/dL (6-20); Calcium 8.5 mg/dL (8.5-10.5); Carbon Dioxide 24 mmol/L (22-29); Chloride 98 mmol/L (98-107); Globulin 3.3 g/dL (1.3-4.6); Glomerular Filtration Rate 116.2 mL/min (90-130); Glucose 355 mg/dL (65-115); Osmolality Calculated 286 mOsm/kg (285-295); Potassium 4.3 mmol/L (3.5-5.1); Sodium 131 mmol/L (136-145); Total Bilirubin 0.3 mg/dL (0.15-1.2); Total Protein 6.8 g/dL (6.6-8.7)
== END 2020-03-28 12:10 | disposition home or self-care (01) ==
PROVIDERS: PCP Family Medicine; Visit Provider Internal Medicine Infectious Disease
DX: T82.7XXA Infection and inflammatory reaction due to other cardiac and vascular devices, implants and grafts, initial encounter (principal); B95.7 Other staphylococcus as the cause of diseases classified elsewhere
CPT/HCPCS: 80053; 85025

== ENCOUNTER 2020-04-02 07:33 | Emergency (ER) | payer BC, SELFPAY ==
[2020-04-02 07:35] VITALS: BP 120/58; PULSE 67; RESP 18; O2SAT 95
[2020-04-02 07:42] VITALS: BP 150/63; PULSE 69; RESP 20; TEMP 36.8; O2SAT 98; BMI 45.9
[2020-04-02 08:35] VITALS: BP 143/59; PULSE 61; RESP 18; O2SAT 95
[2020-04-02 08:55] VITALS: O2SAT 96
--- NOTE | 2020-04-02 08:58 | PC.NURSE ---
BLADDER SCAN DONE, TOLERATED FAIR.
--- NOTE | 2020-04-02 08:59 | PC.NURSE ---
ANDERSON CATHETER PLACED. TOLERATED FAIR.
[2020-04-02 09:03] LABS: Basophils # 0.1 10^3/uL (0.0-0.1); Basophils % 0.7 %; Eosinophils # 0.2 10^3/uL (0.0-0.8); Eosinophils % 2.7 %; Hematocrit 29.2 % (42.0-52.0); Hemoglobin 8.9 g/dL (11.7-16.6); Lymphocytes # 0.8 10^3/uL (0.8-4.8); Lymphocytes % 8.7 %; Mean Corpuscular HGB Conc 30.5 g/dL (30.0-36.0); Mean Corpuscular Hemoglobin 26.9 pg (28.0-34.0); Mean Corpuscular Volume 88.2 fL (80-94); Mean Platelet Volume 10.9 fL (7.4-10.4); Monocytes # 0.9 10^3/uL (0.2-0.9); Monocytes % 10.1 %; Neutrophils # 6.81 10^3/uL (1.8-7.7); Neutrophils % 77.6 %; Nucleated Red Blood Cells % 0 %; Platelet Count 164 10^3/cmm (130-400); Red Blood Count 3.31 10^6/uL (4.1-5.3); Red Cell Distribution Width 16.3 % (12.1-15.1); White Blood Count 8.8 10^3/uL (4.0-10.0)
[2020-04-02 09:05] LABS: Protein Urine Trace (Negative); Urine Appearance Clear (CLEAR); Urine Color Yellow (Yellow); pH Urine 5 (5-7)
[2020-04-02 09:06] LABS: Add Urine Microscopic? YES; Bilirubin Urine Neg (Negative); Blood Urine 3+ (Negative); Glucose Urine UA 1+ (Normal); Ketones Urine Negative (Negative); Leukocyte Esterase Urine Negative (Negative); Nitrate Urine Negative (Negative); Urobilinogen Urine Norm (Negative)
[2020-04-02 09:14] LABS: Add Urine Culture? Yes; Bacteria Urine TRACE /hpf; RBC Urine 15-25 /hpf (0-2); Squamous Epithelial Cell Urine RARE /hpf (0-5); WBC Urine 0-4 /hpf (0-5)
--- NOTE | 2020-04-02 09:20 | W.ED.MALEGU ---
HPI - Male Genitourinary General: Chief complaint: Urogenital-Male Stated complaint: Unable to Pee/Pain When urinating Time Seen by Provider: 04/02/20 07:36 Source: patient Mode of arrival: ambulatory Limitations: no limitations History of Present Illness: HPI Narrative: 59-year-old male patient presents to the emergency department stating he has been unable to urinate today. Patient stating he is having a lot of pressure. Patient states he has never had problems like this before. Patient denies any abdominal pain or back pain. Patient denies any fever. Patient denies any chest pain or shortness of breath. Patient denies any previous hematuria. Associated symptoms: Deny nausea or vomiting Review of Systems Const: Denies: fever(s), chills or body aches Eyes: Denies: change in vision ENMT: Denies: throat pain Card: Denies: chest pain, palpitations or lightheadedness Resp: Denies: dyspnea, productive cough, non-productive cough, wheezing, stridor or pain on inspiration GI: Denies: abdominal pain, nausea, vomiting, diarrhea or constipation : Reports: difficulty urinating; Denies: flank pain Musc: Denies: neck pain or back pain Neuro: Denies: headache(s) Psych: Denies: anxiety, suicidal ideation or homicidal ideation PFSH ED PFSH: Medical History Carotid artery stenosis Coronary artery disease Diabetes mellitus type 2, insulin dependent Hypertension Obstructive sleep apnea Peripheral vascular disease Surgical History Hx of cardiac cath Stent x2 in 2016, Dr. Anton Cheney [place], [place] Hx of laparoscopic gastric banding 04/2009 Status post femoral-popliteal bypass surgery Left legNoni: Dr. 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 Physical Exam Const: COMMON NORMALS: no acute distress, average body habitus, patient oriented x3 and no limitations HENMT: COMMON NORMALS: normocephalic and atraumatic HEAD & SCALP: normocephalic and atraumatic Eye: COMMON NORMALS: Equal, round and reactive pupils present and EOMs intact bilaterally PUPIL: Yes Equal, round and reactive pupils present Neck/C-Spine: COMMON NORMALS: full ROM, no lymphadenopathy, supple and no meningeal signs Lymph: LYMPHATIC: no lymphadenopathy noted Chest: COMMONS NORMALS: normal inspection of the chest and normal palpation of entire chest wall Resp: COMMON NORMALS: normal respiratory effort, No retractions, No use of accessory muscles and clear to auscultation bilaterally AUSCULTATION: clear to auscultation bilaterally Cardio: COMMON NORMALS: regular rate and regular rhythm RATE: regular rate RHYTHM: regular rhythm GI: COMMON NORMALS: Normal to inspection, nondistended, normoactive bowel sounds present, Soft to palpation, non-tender, No hepatosplenomegaly present, no masses and no bruits PALPATION: Yes Soft to palpation and Yes No hepatosplenomegaly present : COMMON NORMALS: Yes no CVA tenderness BLADDER/KIDNEY EXAM: Yes no CVA tenderness Back/Pelvis: COMMON NORMALS: no CVA tenderness, thoracic and lumbar spine normal to inspection, no thoracic nor lumbar tenderness and thoraco-lumbar ROM normal Extremity: COMMON NORMALS: normal to inspection, full ROM and capillary refill normal Neuro: COMMON NORMALS: patient oriented x3, CN's II-XII intact bilaterally, moves all extremities, no focal motor deficits and no sensory deficits noted MENINGEAL SIGNS: Yes no meningeal signs Psych: COMMON NORMALS: mental status grossly normal, Normal thought process present, cooperative, normal affect, speech normal, denies homicidal ideation and denies suicidal ideation SPEECH: Yes normal speech THOUGHT PROCESS: Normal thought process present Course Vital Signs: Vital signs: Vital Signs Temperature 98.2 F 04/02/20 07:42 Pulse Rate 61 04/02/20 08:35 Respiratory Rate 18 04/02/20 08:35 Blood Pressure 143/59 04/02/20 08:35 Pulse Oximetry 96 04/02/20 08:55 MDM - Male MDM Narrative: Medical decision making narrative: Patient is well-appearing nontoxic and in no acute distress. Patient's bladder scan did reveal retained urine therefore I did have a Domingo catheter placed. Patient had 1000 mL of urine output. Patient's labs did not reveal any concerning findings other than mild hyponatremia patient was given 1 L of normal saline as well as advised to increase a little salt on his next few meals. I will plan to leave Domingo catheter in place. Patient will follow-up with the urologist in the next 1 to 2 days. I did discuss return precautions with patient as well as home care. Patient did not have any abdominal pain or back pain or flank pain. Patient states once the Domingo catheter was inserted he had much clinical improvement with this. Lab Data: Labs: Lab Results 04/02/20 04/02/20 04/02/20 Range/Units 08:35 08:35 08:35 WBC 8.8 (4.0-10.0) 10^3/ uL RBC 3.31 L (4.1-5.3) 10^6/u L Hgb 8.9 L (11.7-16.6) g/dL Hct 29.2 L (42.0-52.0) % MCV 88.2 (80-94) fL MCH 26.9 L (28.0-34.0) pg MCHC 30.5 (30.0-36.0) g/dL RDW 16.3 H (12.1-15.1) % Plt Count 164 (130-400) 10^3/c mm MPV 10.9 H (7.4-10.4) fL Neut % (Auto) 77.6 % Lymph % (Auto) 8.7 % [place] % (Auto) 10.1 % Eos % (Auto) 2.7 % Baso % (Auto) 0.7 % Neut # (Auto) 6.81 (1.8-7.7) 10^3/u L Lymph # (Auto) 0.8 (0.8-4.8) 10^3/u L [place] # (Auto) 0.9 (0.2-0.9) 10^3/u L Eos # (Auto) 0.2 (0.0-0.8) 10^3/u L Baso # (Auto) 0.1 (0.0-0.1) 10^3/u L Nucleated RBC % (a uto) 0 % Nucleated RBCs # 0.0 /100WBC Sodium Cancelled Potassium Cancelled Chloride Cancelled Carbon Dioxide Cancelled Anion Gap Cancelled BUN Cancelled Creatinine Cancelled GFR Calculation Cancelled Glucose Cancelled Calculated Osmolal ity Cancelled Calcium Cancelled Total Bilirubin Cancelled AST Cancelled ALT Cancelled Alkaline Phosphata se Cancelled Total Protein Cancelled Albumin Cancelled Globulin Cancelled Urine Color Yellow (Yellow) Urine Appearance Clear (CLEAR) Urine pH 5 (5-7) Ur Specific Gravit y 1.010 (1.005-1.030) Urine Protein Trace (Negative) Urine Glucose (UA) 1+ (Normal) Urine Ketones Negative (Negative) Urine Blood 3+ H (Negative) Urine Nitrate Negative (Negative) Urine Bilirubin Neg (Negative) Urine Urobilinogen Norm (Negative) mg/dL Ur Leukocyte Anai ase Negative (Negative) Urine RBC 15-25 H (0-2) /hpf Urine WBC 0-4 H (0-5) /hpf Ur Squamous Epith Cells Rare (0-5) /hpf Amorphous Sediment Not Reportable Urine Bacteria Trace (NONE) /hpf 04/02/20 Range/Units 11:07 WBC (4.0-10.0) 10^3/ uL RBC (4.1-5.3) 10^6/u L Hgb (11.7-16.6) g/dL Hct (42.0-52.0) % MCV (80-94) fL MCH (28.0-34.0) pg MCHC (30.0-36.0) g/dL RDW (12.1-15.1) % Plt Count (130-400) 10^3/c mm MPV (7.4-10.4) fL Neut % (Auto) % Lymph % (Auto) % [place] % (Auto) % Eos % (Auto) % Baso % (Auto) % Neut # (Auto) (1.8-7.7) 10^3/u L Lymph # (Auto) (0.8-4.8) 10^3/u L [place] # (Auto) (0.2-0.9) 10^3/u L Eos # (Auto) (0.0-0.8) 10^3/u L Baso # (Auto) (0.0-0.1) 10^3/u L Nucleated RBC % (a uto) % Nucleated RBCs # /100WBC Sodium 131 L Potassium 4.2 Chloride 97 L Carbon Dioxide 24 Anion Gap 14.2 BUN 15 Creatinine 0.8 GFR Calculation 99.6 Glucose 164 H Calculated Osmolal ity 276 L Calcium 8.6 Total Bilirubin 0.5 AST 19 ALT 22 Alkaline Phosphata se 172 H Total Protein 7.1 Albumin 3.3 L Globulin 3.8 Urine Color (Yellow) Urine Appearance (CLEAR) Urine pH (5-7) Ur Specific Gravit y (1.005-1.030) Urine Protein (Negative) Urine Glucose (UA) (Normal) Urine Ketones (Negative) Urine Blood (Negative) Urine Nitrate (Negative) Urine Bilirubin (Negative) Urine Urobilinogen (Negative) mg/dL Ur Leukocyte Anai ase (Negative) Urine RBC (0-2) /hpf Urine WBC (0-5) /hpf Ur Squamous Epith Cells (0-5) /hpf Amorphous Sediment Urine Bacteria (NONE) /hpf Discharge Plan Discharge Patient Disposition: Home Clinical Impression: Acute retention of urine, Acute hyponatremia Condition: Stable Prescriptions: No Action ibuprofen 800 mg tablet 800 mg PO TID PRN (Reason: Pain) RF: 0 triamcinolone acetonide 0.1 % cream 1 applic TOPICAL TID RF: 0 carvedilol 3.125 mg tablet 3.125 mg PO BID RF: 0 amlodipine 10 mg tablet 10 mg PO DAILY RF: 0 hydrocodone-acetaminophen 7.5-325 mg tablet 1 tab PO Q4H PRN (Reason: Pain) RF: 0 Lantus Solostar U-100 Insulin 100 unit/mL (3 mL) insulin pen 35 unit SUBCUT QAM RF: 0 (DME) BD Ultra-Fine Aye Pen Needle 32 gauge x 5/32 needle MISCELLANEOUS RF: 0 lisinopril 20 mg tablet 20 mg PO Q12H RF: 0 isosorbide mononitrate 30 mg tablet extended release 24 hr 30 mg PO DAILY RF: 0 Aspirin Low Dose 81 mg Tablet,Delayed Release (Dr/Ec) 81 mg PO DAILY RF: 0 simvastatin 40 mg tablet 40 mg PO BEDTIME RF: 0 nitroglycerin 0.4 mg Tablet, Sublingual 0.4 mg SUBLINGUAL Q5M PRN (Reason: Chest Pain) RF: 0 Novolog Flexpen U-100 Insulin 10 units SUBCUT TID RF: 0 Lyrica 100 mg Capsule 100 mg PO TID RF: 0 Discharge Orders: Discharge Order (Routine); Ordered 04/02/20 Ordered By: Shawanda Marquez Referrals: Servando Gibson Jr, MD [Primary Care Provider] - Discharge Diet: Advance as tolerated Discharge Activity: Increase activity as tolerated Activity Restrictions/Additional Instructions: Please follow up with Urology as directed by Headstart Teacher Keep domingo cath in place until seen by urology in the next 1-3 days Pleases return with any worsening symptoms Coding Level of Care Code ED Spring Machine Operator for Dwaine Sinclair
[2020-04-02 11:29] LABS: Alanine Aminotransferase 22 U/L (0-41); Albumin Level 3.3 g/dL (3.5-5.2); Alkaline Phosphatase 172 IU/L (40-130); Anion Gap 14.2 (5-19); Aspartate Amino Transferase 19 U/L (0-40); Blood Urea Nitrogen 15 mg/dL (6-20); Calcium 8.6 mg/dL (8.5-10.5); Carbon Dioxide 24 mmol/L (22-29); Chloride 97 mmol/L (98-107); Globulin 3.8 g/dL (1.3-4.6); Glomerular Filtration Rate 99.6 mL/min (90-130); Glucose 164 mg/dL (65-115); Osmolality Calculated 276 mOsm/kg (285-295); Potassium 4.2 mmol/L (3.5-5.1); Sodium 131 mmol/L (136-145); Total Bilirubin 0.5 mg/dL (0.15-1.2); Total Protein 7.1 g/dL (6.6-8.7)
[2020-04-02] MEDS: sodium chloride 0.9% 1,000 ML 999 ML IV (12:34)
[2020-04-02 14:26] VITALS: BP 156/78; PULSE 72; RESP 18; O2SAT 98
--- NOTE | 2020-04-03 14:37 | DCPLANNER ---
recycling operations manager had message to schedule a follow up appointment for patient with Dr. Dupont. recycling operations manager called the office of Dr. Dupont, spoke with Beth, gave clinic patients information. recycling operations manager was told that patients information would be printed and reviewed. Clinic will call patient with appointment information.
--- NOTE | 2020-04-04 09:29 | DCPLANNER ---
Patient has a follow up appointment scheduled for Friday, April 17, 2020 at 3:[address] Dupont. Clinic will call patient with appointment information.
--- NOTE | 2020-04-20 07:41 | DCPLANNER ---
Patient had a follow up appointment scheduled for 04.17.[address] Dupont - patient did attend appointment.
== END 2020-04-02 14:28 | disposition home or self-care (01) ==
PROVIDERS: Emergency Provider Registered Nurse; PCP Family Medicine
DX: R33.9 Retention of urine, unspecified (principal); E87.1 Hypo-osmolality and hyponatremia; Z79.4 Long term (current) use of insulin; Z79.82 Long term (current) use of aspirin; I25.10 Atherosclerotic heart disease of native coronary artery without angina pectoris; E11.9 Type 2 diabetes mellitus without complications; I10 Essential (primary) hypertension; I73.9 Peripheral vascular disease, unspecified; Z87.891 Personal history of nicotine dependence
CPT/HCPCS: 12345; 36415; 51702; 51798; 80053; 81001; 85025; 87086; 96360; 99283; J7030

== ENCOUNTER 2020-04-03 10:24 | Outpatient (CLI) | payer BC, SELFPAY ==
[2020-04-03 10:41] LABS: Basophils % 0.6 %; Eosinophils # 0.2 10^3/uL (0.0-0.8); Eosinophils % 2.4 %; Hematocrit 28.6 % (42.0-52.0); Hemoglobin 8.6 g/dL (11.7-16.6); Lymphocytes # 0.6 10^3/uL (0.8-4.8); Lymphocytes % 8.5 %; Mean Corpuscular HGB Conc 30.1 g/dL (30.0-36.0); Mean Corpuscular Hemoglobin 26.7 pg (28.0-34.0); Mean Corpuscular Volume 88.8 fL (80-94); Mean Platelet Volume 11.3 fL (7.4-10.4); Monocytes # 0.7 10^3/uL (0.2-0.9); Monocytes % 10.4 %; Neutrophils # 5.23 10^3/uL (1.8-7.7); Neutrophils % 77.8 %; Nucleated Red Blood Cells % 0 %; Platelet Count 147 10^3/cmm (130-400); Red Blood Count 3.22 10^6/uL (4.1-5.3); Red Cell Distribution Width 15.9 % (12.1-15.1); White Blood Count 6.7 10^3/uL (4.0-10.0)
[2020-04-03 11:02] LABS: Alanine Aminotransferase 23 U/L (0-41); Albumin Level 3.3 g/dL (3.5-5.2); Alkaline Phosphatase 194 IU/L (40-130); Anion Gap 16.1 (5-19); Aspartate Amino Transferase 25 U/L (0-40); Blood Urea Nitrogen 15 mg/dL (6-20); Calcium 8.3 mg/dL (8.5-10.5); Carbon Dioxide 23 mmol/L (22-29); Chloride 96 mmol/L (98-107); Globulin 3.7 g/dL (1.3-4.6); Glomerular Filtration Rate 99.6 mL/min (90-130); Glucose 243 mg/dL (65-115); Osmolality Calculated 281 mOsm/kg (285-295); Potassium 4.1 mmol/L (3.5-5.1); Sodium 131 mmol/L (136-145); Total Bilirubin 0.5 mg/dL (0.15-1.2)
[2020-04-03 11:15] LABS: Vancomycin Trough 12.2 ug/mL (10-15)
[2020-04-04 11:45] LABS: Iron 22 ug/dL (59-158); Percent Saturation 8.2 % (20-50); Total Iron Binding Capacity 266 mcg/dl; Unsaturated Iron Binding 244 ug/dL (112-347)
[2020-04-04 12:01] LABS: Vitamin B12 242 pg/mL (232-1245)
[2020-04-04 12:04] LABS: Folate Level 3.5 ng/mL (4.5-32.2)
== END 2020-04-03 10:25 | disposition home or self-care (01) ==
PROVIDERS: PCP Family Medicine; Visit Provider Internal Medicine Infectious Disease
DX: T82.7XXA Infection and inflammatory reaction due to other cardiac and vascular devices, implants and grafts, initial encounter (principal); B95.7 Other staphylococcus as the cause of diseases classified elsewhere
CPT/HCPCS: 80053; 80202; 82607; 82746; 83540; 83550; 85025; 85045

== ENCOUNTER → 2020-04-17 14:41 | Outpatient (BNVA) | payer BC, SELFPAY | PROVIDERS: PCP Family Medicine; Visit Provider Urology | DX: R33.8 Other retention of urine (principal); N40.1 Benign prostatic hyperplasia with lower urinary tract symptoms | CPT/HCPCS: 81003 ==

== ENCOUNTER → 2020-07-05 09:25 | Outpatient (BNVA) | payer BC, SELFPAY | PROVIDERS: PCP Nurse Practitioner Family; Visit Provider Urology | DX: R33.8 Other retention of urine (principal); Z12.5 Encounter for screening for malignant neoplasm of prostate; N40.1 Benign prostatic hyperplasia with lower urinary tract symptoms | CPT/HCPCS: 81003; G0103 ==

== ENCOUNTER → 2021-07-08 15:12 | Outpatient (BNVA) | payer BC, SELFPAY | PROVIDERS: PCP Nurse Practitioner Family; Visit Provider Urology | DX: N40.1 Benign prostatic hyperplasia with lower urinary tract symptoms (principal) | CPT/HCPCS: 81003 ==

== ENCOUNTER → 2022-01-08 07:06 | Day surgery (SDC) | payer BC, SELFPAY ==
[2022-01-08] VITALS (9 sets, daily range): BP systolic 123–185; BP diastolic 48–77; PULSE 59–63; RESP 18; TEMP 36.2–36.6; O2SAT 92–95
[2022-01-08 07:45] LABS: Hematocrit 26.8 % (42.0-52.0); Hemoglobin 7.7 g/dL (11.7-16.6)
[2022-01-08] MEDS: sodium chloride 0.9% (100 ml) 100 ML 10 ML ×2 (09:23→12:00)
== END ==
PROVIDERS: PCP Nurse Practitioner Family; Visit Provider Nurse Practitioner Family
DX: D64.9 Anemia, unspecified (principal); R53.1 Weakness
CPT/HCPCS: 36430; 85014; 85018; 86850; 86900; 86920; P9016

== ENCOUNTER 2022-02-27 12:30 | Oncology outpatient (recurring) (ONCR) | payer BC, SELFPAY ==
[2022-02-04 16:57] LABS: Basophils % 0.7 %; Eosinophils # 0.2 10^3/uL (0.0-0.8); Hematocrit 38.7 % (42.0-52.0); Hemoglobin 12.3 g/dL (11.7-16.6); Lymphocytes # 0.8 10^3/uL (0.8-4.8); Lymphocytes % 15.4 %; Mean Corpuscular HGB Conc 31.8 g/dL (30.0-36.0); Mean Corpuscular Hemoglobin 30.1 pg (28.0-34.0); Mean Corpuscular Volume 94.6 fl (80-94); Mean Platelet Volume 11.3 fL (7.4-10.4); Monocytes # 0.6 10^3/uL (0.2-0.9); Monocytes % 10.9 %; Neutrophils # 3.75 10^3/uL (1.8-7.7); Neutrophils % 69.6 %; Nucleated Red Blood Cells % 0 %; Platelet Count 106 10^3/cmm (130-400); Red Blood Count 4.09 10^6/uL (4.1-5.3); Red Cell Distribution Width 14.7 % (12.1-15.1); White Blood Count 5.4 10^3/uL (4.0-10.0)
[2022-02-04 17:48] LABS: Alanine Aminotransferase 26 U/L (0-41); Albumin Level 3.7 g/dL (3.5-5.2); Alkaline Phosphatase 92 U/L (40-130); Anion Gap 15.4 (5-19); Aspartate Amino Transferase 33 U/L (0-40); Blood Urea Nitrogen 9 mg/dL (6-20); Calcium 8.9 mg/dL (8.5-10.5); Carbon Dioxide 26 mmol/L (22-29); Chloride 96 mmol/L (98-107); Ferritin 47 ng/mL (30-400); Globulin 3.2 g/dL (1.3-4.6); Glomerular Filtration Rate 170.2 mL/min (90-130); Glucose 171 mg/dL (65-115); Iron 33 ug/dL (59-158); Osmolality Calculated 279 mOsm/kg (285-295); Percent Saturation 9.4 % (20-50); Potassium 4.4 mmol/L (3.5-5.1); Sodium 133 mmol/L (136-145); Total Bilirubin 0.3 mg/dL (0.15-1.2); Total Iron Binding Capacity 348 mcg/dl; Total Protein 6.9 g/dL (6.6-8.7); Unsaturated Iron Binding 315 ug/dL (112-347)
[2022-02-27 12:18] VITALS: BP 174/71; PULSE 65; RESP 18; TEMP 36.6; O2SAT 97
[2022-02-27] MEDS: ferric carboxy (IVPB) 750 MG in sodium chloride 0.9% (100 ml) 100 ML 345 MG IV (12:38)
[2022-02-27] MEDS: sodium chloride 0.9% 250 ML 75 ML IV (12:39)
[2022-02-27 12:42] VITALS: BP 189/72; PULSE 74; RESP 20; TEMP 36.6; O2SAT 97
== END 2022-03-03 23:59 | disposition home or self-care (01) ==
PROVIDERS: PCP Nurse Practitioner Family; Visit Provider Internal Medicine Medical Oncology
DX: D50.8 Other iron deficiency anemias (principal); Z79.899 Other long term (current) drug therapy
CPT/HCPCS: 36415; 80053; 82274; 82728; 83540; 83550; 85025; 86850; 86900; 96365; J1439; J7050

== ENCOUNTER 2022-03-06 14:01 | Oncology outpatient (recurring) (ONCR) | payer BC, SELFPAY ==
[2022-03-06 13:50] VITALS: BP 132/71; PULSE 60; RESP 18; TEMP 36.4; O2SAT 94
[2022-03-06 14:30] VITALS: BP 139/63; PULSE 60; RESP 18; TEMP 36.4; O2SAT 96
[2022-03-06] MEDS: ferric carboxy (IVPB) 750 MG in sodium chloride 0.9% (100 ml) 100 ML 345 MG IV (14:51)
== END 2022-04-02 23:59 | disposition home or self-care (01) ==
LOC: ONCMED 14:02
PROVIDERS: PCP Nurse Practitioner Family; Visit Provider Internal Medicine Medical Oncology
DX: D50.8 Other iron deficiency anemias (principal)
CPT/HCPCS: 96365; J1439

== ENCOUNTER 2022-04-17 14:08 | Oncology outpatient (recurring) (ONCR) | payer BC, SELFPAY ==
[2022-04-17 13:33] LABS: Basophils # 0.1 10^3/uL (0.0-0.1); Basophils % 0.7 %; Eosinophils # 0.1 10^3/uL (0.0-0.8); Hematocrit 41.5 % (42.0-52.0); Hemoglobin 13.8 g/dL (11.7-16.6); Lymphocytes # 0.9 10^3/uL (0.8-4.8); Lymphocytes % 12.3 %; Mean Corpuscular HGB Conc 33.3 g/dL (30.0-36.0); Mean Corpuscular Hemoglobin 31.8 pg (28.0-34.0); Mean Corpuscular Volume 95.6 fl (80-94); Mean Platelet Volume 11.2 fL (7.4-10.4); Monocytes # 0.5 10^3/uL (0.2-0.9); Monocytes % 6.8 %; Neutrophils # 5.49 10^3/uL (1.8-7.7); Neutrophils % 77.8 %; Nucleated Red Blood Cells % 0 %; Platelet Count 115 10^3/cmm (130-400); Red Blood Count 4.34 10^6/uL (4.1-5.3); Red Cell Distribution Width 13.3 % (12.1-15.1); White Blood Count 7.1 10^3/uL (4.0-10.0)
[2022-04-17 13:58] LABS: Alanine Aminotransferase 32 U/L (0-41); Albumin Level 3.3 g/dL (3.5-5.2); Alkaline Phosphatase 126 U/L (40-130); Anion Gap 13.8 (5-19); Aspartate Amino Transferase 34 U/L (0-40); Blood Urea Nitrogen 12 mg/dL (6-20); Calcium 9.1 mg/dL (8.5-10.5); Carbon Dioxide 28 mmol/L (22-29); Chloride 96 mmol/L (98-107); Ferritin 99 ng/mL (30-400); Globulin 3.7 g/dL (1.3-4.6); Glomerular Filtration Rate 137.9 mL/min (90-130); Glucose 329 mg/dL (65-115); Iron 117 ug/dL (59-158); Osmolality Calculated 289 mOsm/kg (285-295); Percent Saturation 44.1 % (20-50); Potassium 4.8 mmol/L (3.5-5.1); Sodium 133 mmol/L (136-145); Total Bilirubin 0.5 mg/dL (0.15-1.2); Total Iron Binding Capacity 265 mcg/dl; Unsaturated Iron Binding 148 ug/dL (112-347)
[2022-04-17 16:20] LABS: Thyroid Stimulating Hormone 2.79 uIU/mL (0.27-4.20); Vitamin B12 288 pg/mL (232-1245)
== END 2022-05-03 23:59 | disposition home or self-care (01) ==
PROVIDERS: PCP Nurse Practitioner Family; Visit Provider Internal Medicine Medical Oncology
DX: D50.8 Other iron deficiency anemias (principal); R53.83 Other fatigue
CPT/HCPCS: 80053; 82607; 82728; 83540; 83550; 84443; 85025

== ENCOUNTER 2022-04-25 09:02 | Inpatient (IN) | payer BC, SELFPAY ==
[2022-04-25] VITALS (9 sets, daily range): BP systolic 169–218; BP diastolic 63–96; PULSE 65–90; RESP 17–19; TEMP 36.8–37.4; O2SAT 83–96; BMI 47.5
--- NOTE | 2022-04-25 09:03 | XR_ITS ---
WS: [id number] Exam: XR chest 1V portable [id number] Date/Time of Exam: 04/25/2022 9:03 AM Reason For Exam: dyspnea/cough Comparison 03/23/2017. There are mild infiltrates in both lower lung zones suspicious for pneumonia. The heart is enlarged. No pneumothorax. The mediastinum is normal in contour. Bony structures are intact. XR/XR chest 1V portable [id number] IMPRESSION: 1. Mild bibasal infiltrate suspicious for pneumonia. 2. Mild cardiac enlargement.
--- NOTE | 2022-04-25 09:04 | ECG_ITS ---
[facility] Test Date: 2022-04-25 Pat Name: Mervin Olivas Department: Room: Gender: Male Valuation Manager: : 1960 Requested By: Richie Navarrete Order Number: [id number] Jose MD: Shanell Zepeda M.D. Measurements Intervals [place] Rate: 83 P: 0 [place]: 0 QRS: 83 QRSD: 106 T: 54 QT: 343 QTc: 404 Interpretive Statements Multifocal atrial rhythm Poor R wave progression ABNORMAL RHYTHM ECG Compared to ECG 08/01/2015 04:04:53 Sinus bradycardia no longer present Intraventricular conduction delay no longer present T-wave abnormality no longer present Electronically Signed On 04-25-2022 15:41:14 NUTRITION HELPER by Shanell Zepeda M.D. [id number]
--- NOTE | 2022-04-25 09:06 | W.ED.SOB ---
HPI - SOB/Dyspnea General: Chief Complaint: Shortness of Breath/Dyspnea Stated Complaint: low ox, sob Time Seen by Provider: 04/25/22 09:03 Source: patient Mode of arrival: ambulatory History of Present Illness: HPI Narrative: 61-year-old male comes in complaining of shortness of breath for the last week. He is 82% on room air on arrival. He has orthopnea associated with that he has had a new productive cough as well as some mild chest discomfort is associated with it. MD elicited complaint: shortness of breath Pertinent past history: COPD Onset (ago): minute(s) Timing: constant Severity: mild Exacerbating factors: nothing Relieving factors: nothing Known history of: COPD and congestive heart failure Associated symptoms: Deny abdominal pain, chest congestion, chest pain, cough, diaphoresis, dizziness, extremity pain, fever(s), hemoptysis, lightheadedness, myalgias, nausea, orthopnea, palpitations, paresthesias, polydipsia, polyuria, rash, sense of impending doom, syncope or vomiting Treatment prior to arrival: none Review of Systems Const: Denies: fever(s), chills, fatigue, malaise or diaphoresis ENMT: Denies: throat pain, ear or mastoid pain, nasal discharge or nasal congestion Card: Denies: chest pain, palpitations, lightheadedness, syncope or orthopnea Resp: Reports: dyspnea, productive cough and wheezing; Denies: hemoptysis or chest congestion GI: Denies: abdominal pain, nausea or vomiting : Denies: flank pain, dysuria, urinary frequency or urinary urgency Musc: Denies: extremity pain Skin/Breast: Denies: rash or pruritus Neuro: Denies: dizziness Endo: Denies: polyuria or polydipsia PFS ED PFSH: Medical History (Updated 04/25/22 @ 15:11 by Richie Kraus DO) BPH loc w urin obs/LUTS Carotid artery stenosis Chronic acquired lymphedema Cirrhosis Coronary artery disease Diabetes mellitus type 2, insulin dependent History of cellulitis Hyperlipidemia Hypertension Iron deficiency anemia Neuropathy Obstructive sleep apnea Other iron deficiency anemias Peripheral arterial disease Thrombocytopenia Surgical History Hx of cardiac cath Stent x2 in 2016, Dr. Anton Cheney [place], [place] Hx of laparoscopic gastric banding 04/2009 Status post femoral-popliteal bypass surgery Left leg, [place]: Dr. 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 Exam Const: GENERAL APPEARANCE: cooperative and comfortable ORIENTATION/CONSCIOUSNESS: Yes awake, Yes oriented to person, Yes oriented to place and Yes oriented to time HENMT: COMMON NORMALS: normocephalic, atraumatic and hearing grossly normal bilaterally HEAD & SCALP: normocephalic and atraumatic Resp: COMMON NORMALS: normal respiratory effort, No retractions and No use of accessory muscles AUSCULTATION: rales bilateral at the base, wheezes and diminished lung sounds Cardio: COMMON NORMALS: regular rate, regular rhythm and No murmurs present (Cardio) RATE: regular rate RHYTHM: regular rhythm GI: COMMON NORMALS: Soft to palpation and No hepatosplenomegaly present AUSCULTATION: Yes normoactive bowel sounds PALPATION: Yes Soft to palpation, No Tenderness to palpation present (GI), No Guarding due to palpation present (GI) and Yes No hepatosplenomegaly present Extremity: COMMON NORMALS: normal to inspection, capillary refill normal, no clubbing, cyanosis or edema, no calf tenderness and no pedal edema Neuro: SENSORIUM/ORIENTATION: Yes oriented to person, Yes oriented to place and Yes oriented to time Skin: COMMON NORMALS: no rashes or lesions noted GENERAL SKIN EXAM: no rashes or lesions noted Course Vital Signs: Vital signs: Vital Signs Temperature 99.4 F 04/25/22 09:14 Pulse Rate 65 04/25/22 11:37 Respiratory Rate 19 H 04/25/22 11:37 Blood Pressure 179/77 04/25/22 11:37 Pulse Oximetry 94 04/25/22 11:37 Oxygen Delivery Me thod 04/25/22 11:37 Oxygen Flow Rate 5 04/25/22 11:37 MDM - SOB/Dyspnea Medical Decision Making bilateral pneumonia at bases as well as some CHF. discussed with hospitalist orders written. Medical Records I reviewed the patient's medical records. Lab Data I reviewed the patient's lab results. 04/25/22 09:32 04/25/22 09:32 Labs/Radiology: Radiology Impressions Chest X-Ray 04/25/22 09:03 IMPRESSION: 1. Mild bibasal infiltrate suspicious for pneumonia. 2. Mild cardiac enlargement. Laboratory Results WBC 5.1 10^3/uL (4.0-10.0) 04/25/22 09:32 RBC 4.57 10^6/uL (4.1-5.3) 04/25/22 09:32 Hgb 14.9 g/dL (11.7-16.6) 04/25/22 09:32 Hct 43.1 % (42.0-52.0) 04/25/22 09:32 MCV 94.3 fl (80-94) H 04/25/22 09:32 MCH 32.6 pg (28.0-34.0) 04/25/22 09:32 MCHC 34.6 g/dL (30.0-36.0) 04/25/22 09:32 RDW 13.3 % (12.1-15.1) 04/25/22 09:32 Plt Count 89 10^3/cmm (130-400) L 04/25/22 09:32 MPV 11.2 fL (7.4-10.4) H 04/25/22 09:32 Neut % (Auto) 78.6 % 04/25/22 09:32 Lymph % (Auto) 9.0 % 04/25/22 09:32 [place] % (Auto) 11.2 % 04/25/22 09:32 Eos % (Auto) 0.6 % 04/25/22 09:32 Baso % (Auto) 0.4 % 04/25/22 09:32 Neut # (Auto) 4.00 10^3/uL (1.8-7.7) 04/25/22 09:32 Lymph # (Auto) 0.5 10^3/uL (0.8-4.8) L 04/25/22 09:32 [place] # (Auto) 0.6 10^3/uL (0.2-0.9) 04/25/22 09:32 Eos # (Auto) 0.0 10^3/uL (0.0-0.8) 04/25/22 09:32 Baso # (Auto) 0.0 10^3/uL (0.0-0.1) 04/25/22 09:32 Nucleated RBC % (auto) 0 % 04/25/22 09:32 Nucleated RBCs # 0.0 /100WBC 04/25/22 09:32 Sodium 128 mmol/L (136-145) L 04/25/22 09:32 Sodium Cancelled 04/25/22 09:32 Potassium 4.3 mmol/L (3.5-5.1) 04/25/22 09:32 Potassium Cancelled 04/25/22 09:32 Chloride 92 mmol/L (98-107) L 04/25/22 09:32 Chloride Cancelled 04/25/22 09:32 Carbon Dioxide 25 mmol/L (22-29) 04/25/22 09:32 Carbon Dioxide Cancelled 04/25/22 09:32 Anion Gap 15.3 (5-19) 04/25/22 09:32 Anion Gap Cancelled 04/25/22 09:32 BUN 11 mg/dL (6-20) 04/25/22 09:32 BUN Cancelled 04/25/22 09:32 Creatinine 0.6 mg/dL (0.7-1.2) L 04/25/22 09:32 Creatinine Cancelled 04/25/22 09:32 GFR Calculation 137.9 mL/min (90-130) H 04/25/22 09:32 GFR Calculation Cancelled 04/25/22 09:32 Glucose 212 mg/dL (65-115) H 04/25/22 09:32 Glucose Cancelled 04/25/22 09:32 Calculated Osmolality 272 mOsm/kg (285-295) L 04/25/22 09:32 Calculated Osmolality Cancelled 04/25/22 09:32 Lactic Acid 1.8 mmol/L (0.5-2.2) 04/25/22 09:32 Calcium 8.7 mg/dL (8.5-10.5) 04/25/22 09:32 Calcium Cancelled 04/25/22 09:32 Total Bilirubin 0.6 mg/dL (0.15-1.2) 04/25/22 09:32 Total Bilirubin Cancelled 04/25/22 09:32 AST 64 U/L (0-40) H 04/25/22 09:32 AST Cancelled 04/25/22 09:32 ALT 40 U/L (0-41) 04/25/22 09:32 ALT Cancelled 04/25/22 09:32 Alkaline Phosphatase 143 U/L (40-130) H 04/25/22 09:32 Alkaline Phosphatase Cancelled 04/25/22 09:32 Troponin T Baseline 25 ng/L (0-15) H 04/25/22 09:32 Troponin T 120 Minute 26.07 ng/L (0-15) H 04/25/22 11:14 Delta Troponin T 1.07 ABS# (0-10) 04/25/22 11:14 NT-Pro-B Natriuret Pep 436 pg/mL (0-125) H 04/25/22 09:32 Total Protein 7.4 g/dL (6.6-8.7) 04/25/22 09:32 Total Protein Cancelled 04/25/22 09:32 Albumin 3.4 g/dL (3.5-5.2) L 04/25/22 09:32 Albumin Cancelled 04/25/22 09:32 Globulin 4.0 g/dL (1.3-4.6) 04/25/22 09:32 Globulin Cancelled 04/25/22 09:32 Urine Color Yellow (Yellow) 04/25/22 10:19 Urine Appearance Cloudy (CLEAR) A 04/25/22 10:19 Urine pH 6 (5-7) 04/25/22 10:19 Ur Specific [place] 1.015 (1.005-1.030) 04/25/22 10:19 Urine Protein 3+ (Negative) H 04/25/22 10:19 Urine Glucose (UA) 2+ (Normal) H 04/25/22 10:19 Urine Ketones Negative (Negative) 04/25/22 10:19 Urine Blood 3+ (Negative) H 04/25/22 10:19 Urine Nitrate Negative (Negative) 04/25/22 10:19 Urine Bilirubin Neg (Negative) 04/25/22 10:19 Urine Urobilinogen Norm mg/dL (Negative) 04/25/22 10:19 Ur Leukocyte Esterase Negative (Negative) 04/25/22 10:19 Urine RBC 5-10 /hpf (0-2) H 04/25/22 10:19 Urine WBC 0-4 /hpf (0-5) H 04/25/22 10:19 Ur Squamous Epith Cells 0-4 /hpf (0-5) H 04/25/22 10:19 Amorphous Sediment Not Reportable 04/25/22 10:19 Urine Bacteria Trace /hpf (NONE) 04/25/22 10:19 Hepatitis A IgM Ab Non-reactive (Nonreactive) 04/25/22 09:32 Hep Bs Antigen Non-reactive (Nonreactive) 04/25/22 09:32 Hep B Core IgM Ab Non-reactive (Nonreactive) 04/25/22 09:32 Hepatitis C Antibody Non-reactive (Nonreactive) 04/25/22 09:32 Discharge Plan Discharge Patient Disposition: Admitted As Inpatient Admit Provider: Sae Howard Clinical Impression: Pneumonia, CHF (congestive heart failure) Condition: Stable Coding Level of Care Code ED Furniture Upholsterer Apprentice for Chg Fwd Exam Detailed
[2022-04-25] MEDS: FUROsemide 10 mg/mL SDV 10mL 60 MG IVP (09:37)
[2022-04-25 10:00] LABS: Basophils % 0.4 %; Eosinophils % 0.6 %; Hematocrit 43.1 % (42.0-52.0); Hemoglobin 14.9 g/dL (11.7-16.6); Lymphocytes # 0.5 10^3/uL (0.8-4.8); Mean Corpuscular HGB Conc 34.6 g/dL (30.0-36.0); Mean Corpuscular Hemoglobin 32.6 pg (28.0-34.0); Mean Corpuscular Volume 94.3 fl (80-94); Mean Platelet Volume 11.2 fL (7.4-10.4); Monocytes # 0.6 10^3/uL (0.2-0.9); Monocytes % 11.2 %; Neutrophils % 78.6 %; Nucleated Red Blood Cells % 0 %; Platelet Count 89 10^3/cmm (130-400); Red Blood Count 4.57 10^6/uL (4.1-5.3); Red Cell Distribution Width 13.3 % (12.1-15.1); White Blood Count 5.1 10^3/uL (4.0-10.0)
[2022-04-25 10:14] LABS: Troponin(5th) Baseline 25 ng/L (0-15)
[2022-04-25 10:24] LABS: Alanine Aminotransferase 40 U/L (0-41); Albumin Level 3.4 g/dL (3.5-5.2); Alkaline Phosphatase 143 U/L (40-130); Aspartate Amino Transferase 64 U/L (0-40); Blood Urea Nitrogen 11 mg/dL (6-20); Calcium 8.7 mg/dL (8.5-10.5); Carbon Dioxide 25 mmol/L (22-29); Chloride 92 mmol/L (98-107); Glomerular Filtration Rate 137.9 mL/min (90-130); Glucose 212 mg/dL (65-115); NT Pro B Type Natriuretic Pept 436 pg/mL (0-125); Osmolality Calculated 272 mOsm/kg (285-295); Sodium 128 mmol/L (136-145); Total Bilirubin 0.6 mg/dL (0.15-1.2); Total Protein 7.4 g/dL (6.6-8.7)
[2022-04-25 10:30] LABS: Anion Gap 15.3 (5-19); Potassium 4.3 mmol/L (3.5-5.1)
[2022-04-25 10:34] LABS: Urine Appearance Cloudy (CLEAR); Urine Color Yellow (Yellow)
[2022-04-25 10:35] LABS: Add Urine Microscopic? YES; Bacteria Urine TRACE /hpf; Bilirubin Urine Neg (Negative); Blood Urine 3+ (Negative); Glucose Urine UA 2+ (Normal); Ketones Urine Negative (Negative); Leukocyte Esterase Urine Negative (Negative); Nitrate Urine Negative (Negative); Protein Urine 3+ (Negative); Specific Gravity, Urine 1.015 (1.005-1.030); Squamous Epithelial Cell Urine 0-4 /hpf (0-5); Urobilinogen Urine Norm (Negative); WBC Urine 0-4 /hpf (0-5); pH Urine 6 (5-7)
[2022-04-25 10:38] LABS: Lactic Sepsis W/Reflex 1.8 mmol/L (0.5-2.2)
--- NOTE | 2022-04-25 11:30 | ECG_ITS ---
[facility] Test Date: 2022-04-25 Pat Name: Mervin Olivas Department: Room: Gender: Male Funeral Arranger: : 1960 Requested By: Richie Navarrete Order Number: [id number] Jose MD: Shanell Zepeda M.D. Measurements Intervals [place] Rate: 76 P: 214 [place]: 233 QRS: 79 QRSD: 100 T: 62 QT: 362 QTc: 409 Interpretive Statements Atrial fibrillation with controlled ventricular response rate SEPTAL MYOCARDIAL INFARCTION , PROBABLY OLD [40+ ms Q WAVE IN V1/V2] Compared to ECG 04/25/2022 09:23:37 First degree AV block now present Myocardial infarct finding now present Electronically Signed On 04-25-2022 15:47:09 DRAINAGE ENGINEER by Shanell Zepeda M.D. [id number]
[2022-04-25 11:36] LABS: Troponin 5 2HR 26.07 ng/L (0-15)
[2022-04-25 11:37] LABS: Troponin 5 2HR Delta 1.07 ABS# (0-10)
--- NOTE | 2022-04-25 11:48 | ECG_ITS ---
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 Measurements Intervals [place] Rate: 79 P: 42 ND: 127 QRS: 79 QRSD: 102 T: 68 QT: 362 QTc: 417 Interpretive Statements SINUS RHYTHM WITH OCCASIONAL SUPRAVENTRICULAR PREMATURE COMPLEXES SEPTAL MYOCARDIAL INFARCTION , OF INDETERMINATE AGE [40+ ms Q WAVE IN V1/V2] Compared to ECG 04/25/2022 11:47:06 First degree AV block no longer present Myocardial infarct finding still present Electronically Signed On 04-25-2022 15:41:51 HOUSING ASSISTANT PROPERTY MANAGER by Shanell Zepeda M.D. [id number]
[2022-04-25] MEDS: levofloxacin-dextrose 5 % 750 MG/150 ML PREMIX 100 MG IV (12:42)
--- NOTE | 2022-04-25 13:40 | P.HP_ITS ---
Providers/Chief Complaint Admitting Physician: Sae Howard MD Primary Care Provider: Izabela Yung NP Chief Complaint: low ox, sob History of Present Illness Mervin Olivas is a 61 year old male who reports he has had increasing shortness of breath over the last week. He reports he has been coughing, and perhaps running some low-grade temperature. Sputum has been productive of a clear sputum. He reports no significant chest discomfort. He has become more short of breath with any exertion or moving. He reports he is always swollen, and it does not seem worse than usual. He reports that rather recently he also had his gastric band adjusted as he was unable to tolerate any solids by mouth. However, he denies any recent spitting up/vomiting, or choking when eating. He reports he has had no real sick contacts, but also comments that his has been coughing a little bit lately. He continues to smoke. Review of Systems General: Reports: 10 or more systems reviewed and unremarkable except in HPI and below Const: Reports: chills and fatigue; Denies: fever(s) Eyes: Denies: change in vision ENMT: Denies: throat pain Card: Denies: chest pain Resp: Reports: dyspnea, productive cough and wheezing GI: Reports: other (Early satiety); Denies: abdominal pain, nausea or vomiting : Denies: flank pain Musc: Denies: neck pain Skin/Breast: Denies: rash Neuro: Denies: headache(s) Psych: Denies: anxiety or depression Endo: Denies: polyuria Medications/Allergies Home Medications Medication Instructions Recorded Confirmed Last Taken Type amlodipine 10 mg tablet 10 mg PO DAILY 05/25/19 04/25/22 04/24/22 History aspirin 81 mg tablet,delayed 81 mg PO DAILY 05/25/19 04/25/22 04/24/22 History release (Helen Low Dose Aspirin) carvedilol 3.125 mg tablet 3.125 mg PO BID 05/25/19 04/25/22 04/24/22 History hydrocodone 7.5 mg-acetaminophen 1 tab PO Q4H PRN Pain 05/25/19 04/25/22 Unknown History 325 mg tablet isosorbide mononitrate 30 mg 30 mg PO DAILY 05/25/19 04/25/22 04/24/22 History tablet,extended release 24 hr lisinopril 20 mg tablet 20 mg PO Q12H 05/25/19 04/25/22 04/24/22 History nitroglycerin 0.4 mg sublingual 0.4 mg sublingual Q5M PRN Chest 05/25/19 04/25/22 Unknown History tablet Pain simvastatin 40 mg tablet 40 mg PO BEDTIME 05/25/19 04/25/22 04/24/22 History furosemide 40 mg tablet 40 mg PO DAILY 04/17/20 04/25/22 04/24/22 History potassium chloride 10 mEq 10 meq PO DAILY 04/17/20 04/25/22 04/24/22 History capsule,extended release ibuprofen 800 mg tablet 800 mg PO DAILY 07/08/21 04/25/22 04/24/22 History metformin 1,000 mg tablet 1,000 mg PO BID 07/08/21 04/25/22 04/24/22 History tamsulosin 0.4 mg capsule 0.4 mg PO BID 07/08/21 04/25/22 04/24/22 History ferrous fumarate 325 mg (106 mg 650 mg PO BID 04/17/22 04/25/22 04/24/22 History iron) tablet glimepiride 1 mg tablet 1 mg PO DAILY 04/25/22 04/25/22 04/24/22 History pregabalin 100 mg capsule 100 mg PO TID 04/25/22 04/25/22 04/24/22 History Allergies Allergy/AdvReac Type Severity Reaction Status Date / Time ertugliflozin Allergy Unknown itching Verified 04/25/22 10:53 [From [facility]] PFSH Acute PFSH: Medical History (Updated 04/25/22 @ 13:55 by Sae Howard MD) BPH loc w urin obs/LUTS Carotid artery stenosis Chronic acquired lymphedema Cirrhosis Coronary artery disease Diabetes mellitus type 2, insulin dependent History of cellulitis Hyperlipidemia Hypertension Iron deficiency anemia Neuropathy Obstructive sleep apnea Other iron deficiency anemias Peripheral arterial disease Thrombocytopenia Surgical History Hx of cardiac cath Stent x2 in 2015, Dr. Anton Cheney [place], [place] Hx of laparoscopic gastric banding 04/2009 Status post femoral-popliteal bypass surgery Left leg, Noni Barrera: Dr. 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 Pupils equally round. Oropharynx clear. Neck is obese. No obvious thyromegaly. Supple. Cardiovascular regular rate and rhythm, heart sounds distant, no murmur Lungs diminished breath sounds at the bases but no crackles. Faint expiratory wheezes heard bibasilar. Abdomen is soft obese nontender positive bowel sounds. Organomegaly is difficult to estimate. 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 At least trace to 1+ edema bilaterally left greater than right. Skin no rash Neuro: No obvious deficits ichthyosis Data 04/25/22 09:32 04/25/22 09:32 Other Labs: AST 64, ALT 40, alk phos 143, total bilirubin 0.6 Troponin 25 at baseline and 26 at 2 hours BNP elevated 436 Albumin 3.4 Urinalysis 5-10 reds, 0-4 whites, 3+ protein Chest x-ray demonstrated bibasilar infiltrate, cardiomegaly. I reviewed this personally as well Blood cultures were obtained EKG demonstrates sinus rhythm, normal axis, frequent premature atrial complexes, no ST elevation. Micro: Microbiology 04/25/22 09:43 Blood Culture - Preliminary Blood SPECIMEN COLLECTED 04/25/22 09:32 Blood Culture - Preliminary Blood SPECIMEN COLLECTED A&P Assessment and plan (1) Pneumonia: Concern of pneumonia. He has been ill for the last week. A low-grade temperature is noted in the emergency department. He reports he is producing some sputum. He is requiring 5 L of oxygen so hypoxia is associated with his condition. At this point he has community-acquired pneumonia, and azithromycin and ceftriaxone are appropriate. Obtain a sputum culture Check COVID PCR. As this PCR test is being done it will report out if he has influenza as well. Pulmonary toilet with albuterol and Atrovent as needed as he is wheezing Initiate budesonide Check MRSA PCR Wean oxygen as tolerated (2) CHF (congestive heart failure): Patient presents with slightly elevated BNP Presentation most consistent with acute diastolic heart failure Obtain echocardiogram Diuresis with Lasix 40 mg IV every 12 hours Wean oxygen as tolerated Telemetry (3) Hyponatremia: Patient presents with hyponatremia. This is not pseudohyponatremia as glucose is not that elevated. This is most likely a manifestation of overall increase in total body fluid, likely CHF. Cannot exclude cirrhosis as a component. Will initially start with diuresis. If this does not improve, fluid restriction could be considered. I do not think he has SIADH, nor do I think salt tablets are useful at this time. (4) Diabetes mellitus type 2, insulin dependent: Patient with underlying type 2 diabetes Sliding scale insulin Consistent carb diet (5) Coronary artery disease: Continue his chronic medicines for coronary artery disease. This includes a beta-jeremy, aspirin, statin, Imdur (6) Cirrhosis: I believe the patient likely has cirrhosis. There is suggestion of this on CT scan as well as splenomegaly. This likely explains his slightly elevated MCV, may explain part of his hyponatremia, and would explain his slightly low platelets. I have counseled him to discuss this with his primary care provider, and that he may need EGD to surveilled for esophageal varices considering last CT suggested portal hypertension. At this point he has no history of significant bleeding, although he does have a history of iron deficiency anemia with his gastric banding in the past. I do feel comfortable providing DVT prophylaxis currently. Plan Multiple other medical problems as outlined in past medical history Full code Lovenox for DVT prophylaxis Attestations Medical Necessity Statement*: Will require greater than 2 midnight stay for evaluation and treatment of congestive heart failure, pneumonia Coding Level of Care Code Acute Retail Seasonal Specialist for [facility] Fwd Diagnoses Pneumonia J18.9 CHF (congestive heart failure) I50.9 Hyponatremia E87.1 Diabetes mellitus type 2, insulin dependent E11.9; Z79.4 Coronary artery disease I25.10 Cirrhosis K74.60
[2022-04-25 14:50] LABS: Hepatitis A Antibody IgM Non-Reactive (Nonreactive); Hepatitis B Core IgM Non-Reactive (Nonreactive); Hepatitis B Surface Antigen Non-Reactive (Nonreactive); Hepatitis C Virus Antibody Non-Reactive (Nonreactive)
[2022-04-25 15:45] LABS: Troponin 5 6HR 22.24 ng/L (0-15)
[2022-04-25 15:46] LABS: Troponin 5 6HR Delta -2.76 ng/L (0-12)
[2022-04-25] MEDS: enoxaparin 40 mg/0.4 mL Syringe SUBCUT (15:52)
[2022-04-25] MEDS: azithromycin 500 MG in sodium chloride 0.9% 250 ML 250 MG IV (15:52)
[2022-04-25] MEDS: cefTRIAXone 1,000 MG in sodium chloride 0.9% (plus) 50 ML 100 MG IV (15:52)
[2022-04-25] MEDS: pregabalin 100 mg Capsule PO ×2 (15:53→21:04)
[2022-04-25 16:18] LABS: Creatinine Urine, Random 32 mg/dL (39-259)
[2022-04-25 16:40] LABS: Urine Protein Random 451 mg/dL
[2022-04-25] MEDS: tamsulosin 0.4 mg Capsule PO (17:08)
[2022-04-25] MEDS: carvedilol 3.125 mg Tablet PO (17:08)
[2022-04-25] MEDS: lisinopril 20 mg Tablet PO (17:08)
[2022-04-25 17:18] LABS: Adenovirus Not Detected (NOT DETECT); Chlamydia Pneumoniae Not Detected (NOT DETECT); Coronavirus 229E,HKU1,NL63,OC4 Not Detected (NOT DETECT); Human Metapneumovirus Not Detected (NOT DETECT); Human Rhinovirus/Enterovirus Not Detected (NOT DETECT); Influenza A Detected (NOT DETECT); Influenza A H1 Not Detected (NOT DETECT); Influenza A H1-2009 Not Detected (NOT DETECT); Influenza A H3 Detected (NOT DETECT); Influenza B Not Detected (NOT DETECT); Mycoplasma Pneumoniae Not Detected (NOT DETECT); Parainfluenza Virus Type 1 Not Detected (NOT DETECT); Parainfluenza Virus Type 2 Not Detected (NOT DETECT); Parainfluenza Virus Type 3 Not Detected (NOT DETECT); Parainfluenza Virus Type 4 Not Detected (NOT DETECT); Respiratory Syncytial Virus A Not Detected (NOT DETECT); Respiratory Syncytial Virus B Not Detected (NOT DETECT); SARS-COV-2 Not Detected (NOT DETECT)
[2022-04-25 17:29] LABS: Influenza A Detected (NOT DETECT); Influenza A H1 Not Detected (NOT DETECT); Influenza A H1-2009 Not Detected (NOT DETECT); Influenza A H3 Detected (NOT DETECT); Influenza B Not Detected (NOT DETECT); Results from Genmark
[2022-04-25] MEDS: budesonide 0.5 mg/2 mL Neb INHALATION (20:11)
[2022-04-25] MEDS: atorvastatin 40 mg Tablet 20 MG PO (21:05)
[2022-04-25] MEDS: oseltamivir phosphate 75 mg Capsule PO (21:05)
[2022-04-25] MEDS: HYDROcodone-acetaminophen 7.5-325 mg Tablet 1 TAB PO (21:05)
[2022-04-25] MEDS: FUROsemide 10 mg/mL SDV 4mL 40 MG IVP (21:54)
[2022-04-26] VITALS (11 sets, daily range): BP systolic 132–173; BP diastolic 74–93; PULSE 60–118; RESP 16–20; TEMP 36.5–36.9; O2SAT 91–95
[2022-04-26 05:25] LABS: Eosinophils % 0.3 %; Hematocrit 40.3 % (42.0-52.0); Hemoglobin 13.8 g/dL (11.7-16.6); Lymphocytes # 0.6 10^3/uL (0.8-4.8); Mean Corpuscular HGB Conc 34.2 g/dL (30.0-36.0); Mean Corpuscular Hemoglobin 32.2 pg (28.0-34.0); Mean Corpuscular Volume 93.9 fl (80-94); Mean Platelet Volume 11.3 fL (7.4-10.4); Monocytes # 0.4 10^3/uL (0.2-0.9); Monocytes % 9.9 %; Neutrophils # 2.79 10^3/uL (1.8-7.7); Neutrophils % 74.5 %; Nucleated Red Blood Cells % 0 %; Platelet Count 88 10^3/cmm (130-400); Red Blood Count 4.29 10^6/uL (4.1-5.3); Red Cell Distribution Width 13.1 % (12.1-15.1); White Blood Count 3.7 10^3/uL (4.0-10.0)
[2022-04-26 05:41] LABS: Alanine Aminotransferase 30 U/L (0-41); Albumin Level 3.1 g/dL (3.5-5.2); Alkaline Phosphatase 116 U/L (40-130); Anion Gap 12.6 (5-19); Aspartate Amino Transferase 35 U/L (0-40); Blood Urea Nitrogen 19 mg/dL (6-20); Calcium 8.5 mg/dL (8.5-10.5); Carbon Dioxide 28 mmol/L (22-29); Chloride 96 mmol/L (98-107); Globulin 3.7 g/dL (1.3-4.6); Glomerular Filtration Rate 115.4 mL/min (90-130); Glucose 275 mg/dL (65-115); Osmolality Calculated 286 mOsm/kg (285-295); Potassium 4.6 mmol/L (3.5-5.1); Sodium 132 mmol/L (136-145); Total Bilirubin 0.4 mg/dL (0.15-1.2); Total Protein 6.8 g/dL (6.6-8.7)
--- NOTE | 2022-04-26 06:00 | USCV_ITS ---
Mervin Olivas Age: 61 Gender: M : 1960 Exam Date: 04/26/2022 12:08 Ordering Phys: Sae Howard MD Technologist: ALISSA [place]am [place] [facility] [place]ication: Congestive heart failure BP: 132 / 76 HR: 89 Rhythm: Sinus Technical Quality: Technically difficult study MEASUREMENTS (Male / Female) Normal Values 2D ECHO LV Diastolic Diameter PLAX 5.4 cm 4.2 - 5.9 / 3.9 - 5.3 cm LV Systolic Diameter PLAX 4.5 cm IVS Diastolic Thickness 1.1 cm 0.6 - 1.0 / 0.6 - 0.9 cm IVS Systolic Thickness 1.3 cm LVPW Diastolic Thickness 1.1 cm 0.6 - 1.0 / 0.6 - 0.9 cm LVPW Systolic Thickness 1.3 cm LVOT Diameter 2.1 cm LV Ejection Fraction 2D Teich 33.6 % LV Ejection Fraction MOD 2C 52.6 % LV Ejection Fraction 2C AL 52.8 % LA Diameter 5.2 cm M-MODE Aortic Annulus Diameter 3.1 cm LA Ao Ratio MM 2.0 MV E Point Septal Separation 0.3 cm DOPPLER MV Area PHT 4.8 cm squared Mitral E to A Ratio 0.6 MV E' Velocity 39.5 cm/s Mitral E to MV E' Ratio 7.2 Mitral E to LV E' Lateral Ratio 7.0 Mitral E to LV E' Septal Ratio 7.4 TR Peak Velocity 141.0 cm/s TR Peak Gradient 8.0 mmHg TV Peak E Velocity 56.0 cm/s Right Atrial Pressure 3.0 mmHg Pulmonary Artery Systolic Pressu 11.0 mmHg PV Peak Velocity 124.0 cm/s FINDINGS Left Ventricle Normal left ventricular size, systolic function and wall thickness, with no regional wall motion abnormalities. Left ventricular ejection fraction is estimated at 65 %. Rhythm precludes evaluation of diastolic function. Right Ventricle Normal right ventricular size and systolic function. RVSP could not be calculated due to incomplete tricuspid regurgitation velocity profile. Right Atrium Normal right atrial size. Left Atrium Mildly increased left atrial size. Mitral Valve Structurally normal mitral valve. Aortic Valve Mildly thickened trileaflet aortic valve. Tricuspid Valve Structurally normal tricuspid valve. Pulmonic Valve Structurally normal pulmonic valve. Pericardium No pericardial effusion. Aorta Normal size aortic root and proximal ascending aorta. IVC Inferior vena cava not visualized. CONCLUSIONS 1. This is a technically difficult study. Optison was used per protocol. 2. Normal left ventricular size, systolic function and wall thickness, with no regional wall motion abnormalities. Left ventricular ejection fraction is estimated at 65 %. 3. Normal right ventricular size and systolic function. 4. Direct comparison to previous study is not possible due to technical differences in study. Halina Ren MD (Electronically Signed) Final Date: 26 April 2022 14:34 S
[2022-04-26] MEDS: lisinopril 20 mg Tablet PO ×2 (06:45→17:22)
[2022-04-26] MEDS: budesonide 0.5 mg/2 mL Neb INHALATION ×2 (07:46→20:44)
[2022-04-26] MEDS: amlodipine 10 mg Tablet PO (08:53)
[2022-04-26] MEDS: isosorbide mononitrate ER 30 mg Tablet PO (08:53)
[2022-04-26] MEDS: aspirin 81 mg EC Tablet PO (08:53)
[2022-04-26] MEDS: tamsulosin 0.4 mg Capsule PO ×2 (08:54→17:22)
[2022-04-26] MEDS: oseltamivir phosphate 75 mg Capsule PO ×2 (08:54→17:22)
[2022-04-26] MEDS: carvedilol 3.125 mg Tablet PO ×2 (08:54→17:22)
[2022-04-26] MEDS: pregabalin 100 mg Capsule PO ×3 (08:54→20:39)
[2022-04-26] MEDS: FUROsemide 10 mg/mL SDV 4mL 40 MG IVP ×2 (08:54→20:34)
[2022-04-26] MEDS: potassium chloride ER 10 mEq Tablet PO (08:54)
[2022-04-26] MEDS: cefTRIAXone 1,000 MG in sodium chloride 0.9% (plus) 50 ML 100 MG IV (16:40)
[2022-04-26] MEDS: enoxaparin 40 mg/0.4 mL Syringe SUBCUT (17:22)
[2022-04-26] MEDS: azithromycin 500 MG in sodium chloride 0.9% 250 ML 250 MG IV (17:22)
--- NOTE | 2022-04-26 19:59 | P.PN_ITS ---
Subjective Subjective: He is feeling slightly better. He normally does not use oxygen. He is coughing. Not bringing up some phlegm. Swelling has been coming down in his legs. Having quite a bit of dry skin. Vitals/I&O/Wt Last Vital Signs Temp 97.7 F 04/26/22 15:53 Pulse 111 H 04/26/22 15:53 Resp 16 04/26/22 15:53 BP 154/84 04/26/22 15:53 Pulse Ox 93 04/26/22 15:53 O2 Del Method 04/26/22 15:53 O2 Flow Rate 3 04/26/22 07:46 04/26/22 04/26/22 04/26/22 06:59 14:59 22:59 Intake Total 600 / 600 900 / 1500 Balance 600 / 600 900 / 1500 Weight last 48 hrs Weight 158.803 kg Weight 158.757 kg Physical Exam Const: COMMON NORMALS: patient oriented x3 and alert GENERAL APPEARANCE: cooperative ORIENTATION/CONSCIOUSNESS: Yes awake HENMT: COMMON NORMALS: oropharynx normal Neck/C-Spine: COMMON NORMALS: no JVD Resp: COMMON NORMALS: normal respiratory effort AUSCULTATION: wheezes and diminished lung sounds Cardio: COMMON NORMALS: no JVD, regular rhythm, S1 normal heart sound present, S2 normal heart sound present and No murmurs present (Cardio) RHYTHM: regular rhythm HEART SOUNDS: S1 normal heart sound present and S2 normal heart sound present GI: COMMON NORMALS: Normal to inspection, nondistended, normoactive bowel sounds present, Soft to palpation and non-tender PALPATION: Yes Soft to palpation Extremity: COMMON NORMALS: no joint enlargement GENERAL: Yes edema (2+) Neuro: COMMON NORMALS: patient oriented x3 and moves all extremities SENSORIUM/ORIENTATION: Yes alert Skin: OTHER: Very dry skin of lower extremities, but also arms with large scaly flakes. No erythema, no weeping. Wrinkling of skin of lower shins and feet. Data 04/26/22 05:15 04/26/22 05:15 Micro: Microbiology 04/25/22 09:43 Blood Culture - Preliminary Blood NEGATIVE TO DATE 04/25/22 09:32 Blood Culture - Preliminary Blood NEGATIVE TO DATE 04/25/22 15:33 MRSA Culture - Final Nose A&P Assessment and plan (1) Pneumonia: He was able to give a sample of sputum. Continue ceftriaxone, azithromycin for superimposed bacterial pneumonia on influenza pneumonia. Continue Tamiflu. Oxygenation showing improvement, down to 3 L on nasal cannula. He has been ill for the last week. A low-grade temperature is noted in the emergency department. He reports he is producing some sputum. He is requiring 5 L of oxygen so hypoxia is associated with his condition. Negative COVID PCR. Pulmonary toilet with albuterol and Atrovent as needed as he is wheezing budesonide Negative MRSA PCR Wean oxygen as tolerated (2) CHF (congestive heart failure): Improving. Swelling is decreasing. Output is not well charted. Continue diuresis. Significantly dry skin, add emollient. Presentation most consistent with acute diastolic heart failure Wean oxygen as tolerated Telemetry TTE ?1. This is a technically difficult study.? Optison was used per ?protocol. ?2.? Normal left ventricular size, systolic function and wall ?thickness, with no regional wall motion abnormalities. Left ?ventricular ejection fraction is estimated at 65 %. ?3.? Normal right ventricular size and systolic function. ?4.? Direct comparison to previous study is not possible due to ?technical differences in study. (3) Hyponatremia: Down to as low as 128, today better at 132. Most likely a manifestation of overall increase in total body fluid, likely CHF. Cannot exclude cirrhosis as a component. If this does not improve, fluid restriction could be considered. (4) Diabetes mellitus type 2, insulin dependent: Patient with underlying type 2 diabetes Sliding scale insulin Consistent carb diet (5) Coronary artery disease: Continue his chronic medicines for coronary artery disease. This includes a beta-jeremy, aspirin, statin, Imdur (6) Cirrhosis: Suspected liver cirrhosis. There is suggestion of this on CT scan as well as splenomegaly. This likely explains his slightly elevated MCV, may explain part of his hyponatremia, and would explain his slightly low platelets. He is to discuss this with his primary care provider, and that he may need EGD to surveilled for esophageal varices considering last CT suggested portal hypertension. At this point he has no history of significant bleeding, although he does have a history of iron deficiency anemia with his gastric banding in the past. Plan Multiple other medical problems as outlined in past medical history Full code Lovenox for DVT prophylaxis Attestations Medical Necessity Statement*: Continue course of management of influenza pneumonia, superimposed bacterial pneumonia, CHF exacerbation with suspected underlying cirrhosis. Coding Level of Care Code Acute Chief Of Field Operations for [facility] Fwd Diagnoses Pneumonia J18.9 CHF (congestive heart failure) I50.9 Hyponatremia E87.1 Diabetes mellitus type 2, insulin dependent E11.9; Z79.4 Coronary artery disease I25.10 Cirrhosis K74.60
[2022-04-26] MEDS: atorvastatin 40 mg Tablet 20 MG PO (20:39)
[2022-04-26] MEDS: HYDROcodone-acetaminophen 7.5-325 mg Tablet 1 TAB PO (20:39)
[2022-04-26] MEDS: eucerin cream 113 gm Jar 1 APPLIC TOPICAL (23:11)
[2022-04-27] VITALS (10 sets, daily range): BP systolic 110–152; BP diastolic 73–88; PULSE 65–116; RESP 16–22; TEMP 36.3–36.8; O2SAT 90–96
[2022-04-27 05:22] LABS: Basophils % 0.5 %; Eosinophils % 0.8 %; Hematocrit 39.5 % (42.0-52.0); Hemoglobin 13.2 g/dL (11.7-16.6); Lymphocytes % 26.8 %; Mean Corpuscular HGB Conc 33.4 g/dL (30.0-36.0); Mean Corpuscular Hemoglobin 31.7 pg (28.0-34.0); Mean Corpuscular Volume 94.7 fl (80-94); Monocytes # 0.4 10^3/uL (0.2-0.9); Monocytes % 10.8 %; Neutrophils # 2.24 10^3/uL (1.8-7.7); Neutrophils % 60.6 %; Nucleated Red Blood Cells % 0 %; Platelet Count 87 10^3/cmm (130-400); Red Blood Count 4.17 10^6/uL (4.1-5.3); Red Cell Distribution Width 13.2 % (12.1-15.1); White Blood Count 3.7 10^3/uL (4.0-10.0)
[2022-04-27 05:38] LABS: Anion Gap 10.8 (5-19); Blood Urea Nitrogen 20 mg/dL (6-20); Calcium 7.9 mg/dL (8.5-10.5); Carbon Dioxide 30 mmol/L (22-29); Chloride 97 mmol/L (98-107); Glomerular Filtration Rate 137.9 mL/min (90-130); Glucose 195 mg/dL (65-115); Osmolality Calculated 286 mOsm/kg (285-295); Potassium 3.8 mmol/L (3.5-5.1); Sodium 134 mmol/L (136-145)
[2022-04-27] MEDS: lisinopril 20 mg Tablet PO ×2 (06:05→16:51)
[2022-04-27] MEDS: budesonide 0.5 mg/2 mL Neb INHALATION ×2 (08:05→20:05)
[2022-04-27] MEDS: isosorbide mononitrate ER 30 mg Tablet PO (08:49)
[2022-04-27] MEDS: potassium chloride ER 10 mEq Tablet PO (08:49)
[2022-04-27] MEDS: aspirin 81 mg EC Tablet PO (08:49)
[2022-04-27] MEDS: carvedilol 3.125 mg Tablet PO ×2 (08:49→16:51)
[2022-04-27] MEDS: amlodipine 10 mg Tablet PO (08:49)
[2022-04-27] MEDS: guaiFENesin 600 mg Tablet PO ×2 (08:49→16:52)
[2022-04-27] MEDS: tamsulosin 0.4 mg Capsule PO ×2 (08:49→16:50)
[2022-04-27] MEDS: pregabalin 100 mg Capsule PO ×3 (08:49→21:16)
[2022-04-27] MEDS: FUROsemide 10 mg/mL SDV 4mL 40 MG IVP ×2 (08:50→21:13)
[2022-04-27] MEDS: oseltamivir phosphate 75 mg Capsule PO ×2 (08:50→21:16)
--- NOTE | 2022-04-27 13:06 | ECG_ITS ---
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 Measurements Intervals [place] Rate: 100 P: 0 MT: 0 QRS: 84 QRSD: 106 T: 26 QT: 329 QTc: 425 Interpretive Statements ATRIAL FIBRILLATION WITH RAPID VENTRICULAR RESPONSE WITH ABERRANT CONDUCTION OR VENTRICULAR PREMATURE COMPLEXES ABNORMAL RHYTHM ECG Compared to ECG 04/25/2022 11:48:33 Ventricular premature complex(es) now present Aberrant conduction of supraventricular beat(s) now present Sinus rhythm no longer present Myocardial infarct finding no longer present Electronically Signed On 04-28-2022 6:07:57 HOME OFFICE CLAIM SPECIALIST by Halina Ren M.D. [id number]
[2022-04-27] MEDS: enoxaparin 40 mg/0.4 mL Syringe SUBCUT (16:50)
[2022-04-27] MEDS: azithromycin 500 MG in sodium chloride 0.9% 250 ML 250 MG IV (16:52)
[2022-04-27] MEDS: eucerin cream 113 gm Jar 1 APPLIC TOPICAL (16:52)
[2022-04-27] MEDS: cefTRIAXone 1,000 MG in sodium chloride 0.9% (plus) 50 ML 100 MG IV (16:53)
--- NOTE | 2022-04-27 19:59 | PM.PN ---
Subjective Subjective: Today his heart rate has been fast. He has not had chest pain. He has been coughing, productive cough. Breathing is about the same, perhaps slightly better. No nausea vomiting or diarrhea. He is not aware of having prior history of atrial fibrillation. Vitals/I&O/Wt Last Vital Signs Temp 97.5 F L 04/27/22 16:00 Pulse 99 04/27/22 16:00 Resp 17 04/27/22 16:00 BP 142/77 04/27/22 16:00 Pulse Ox 93 04/27/22 16:00 O2 Del Method 04/27/22 16:00 O2 Flow Rate 4 04/27/22 08:00 04/27/22 04/27/22 04/27/22 06:59 14:59 22:59 Intake Total 480 / 2460 1080 / 1080 900 / 1980 Balance 480 / 2460 1080 / 1080 900 / 1979 Physical Exam Const: COMMON NORMALS: patient oriented x3 and alert GENERAL APPEARANCE: cooperative ORIENTATION/CONSCIOUSNESS: Yes awake HENMT: COMMON NORMALS: oropharynx normal Neck/C-Spine: COMMON NORMALS: no JVD Resp: COMMON NORMALS: normal respiratory effort AUSCULTATION: no wheezes and diminished lung sounds Cardio: COMMON NORMALS: no JVD, regular rhythm, S1 normal heart sound present, S2 normal heart sound present and No murmurs present (Cardio) RHYTHM: regular rhythm HEART SOUNDS: S1 normal heart sound present and S2 normal heart sound present GI: COMMON NORMALS: Normal to inspection, nondistended, normoactive bowel sounds present, Soft to palpation and non-tender PALPATION: Yes Soft to palpation Extremity: COMMON NORMALS: no joint enlargement GENERAL: Yes edema (2+) Neuro: COMMON NORMALS: patient oriented x3 and moves all extremities SENSORIUM/ORIENTATION: Yes alert Skin: OTHER: Very dry skin of lower extremities, but also arms with large scaly flakes. No erythema, no weeping. Wrinkling of skin of lower shins and feet. Data 04/27/22 04:38 04/27/22 04:38 A&P Assessment and plan (1) Pneumonia: Continue ceftriaxone, azithromycin for superimposed bacterial pneumonia on influenza pneumonia. Continue Tamiflu. He was able to give a sample of sputum. Follow-up sputum culture. Oxygenation showing improvement, down to 3 L on nasal cannula. He has been ill for the last week. A low-grade temperature is noted in the emergency department. He reports he is producing some sputum. He is requiring 5 L of oxygen so hypoxia is associated with his condition. Negative COVID PCR. Pulmonary toilet with albuterol and Atrovent as needed as he is wheezing budesonide Negative MRSA PCR Wean oxygen as tolerated (2) Paroxysmal atrial fibrillation with RVR: New atrial fibrillation with RVR. Heart rates fluctuating between 90s to 120s. Change beta-jeremy to metoprolol 25 mg twice daily. He is agreeable to anticoagulation due to stroke risk. Changed to therapeutic Lovenox. Monitor blood counts due to pancytopenia. Monitor on telemetry. Continue treatment of underlying conditions as above. Check magnesium. (3) CHF (congestive heart failure): Improving. Swelling is decreasing. Output is not well charted. Continue diuresis. Significantly dry skin, add emollient. Presentation most consistent with acute diastolic heart failure Wean oxygen as tolerated Telemetry TTE ?1. This is a technically difficult study.? Optison was used per ?protocol. ?2.? Normal left ventricular size, systolic function and wall ?thickness, with no regional wall motion abnormalities. Left ?ventricular ejection fraction is estimated at 65 %. ?3.? Normal right ventricular size and systolic function. ?4.? Direct comparison to previous study is not possible due to ?technical differences in study. (4) Hyponatremia: Continue to improve. Most likely a manifestation of overall increase in total body fluid, likely CHF. Cannot exclude cirrhosis as a component. If this does not improve, fluid restriction could be considered. (5) Diabetes mellitus type 2, insulin dependent: Patient with underlying type 2 diabetes Sliding scale insulin Consistent carb diet (6) Coronary artery disease: Continue his chronic medicines for coronary artery disease. This includes a beta-jeremy, aspirin, statin, Imdur (7) Cirrhosis: Suspected liver cirrhosis. There is suggestion of this on CT scan as well as splenomegaly. This likely explains his slightly elevated MCV, may explain part of his hyponatremia, and would explain his slightly low platelets. He is to discuss this with his primary care provider, and that he may need EGD to surveilled for esophageal varices considering last CT suggested portal hypertension. At this point he has no history of significant bleeding, although he does have a history of iron deficiency anemia with his gastric banding in the past. Plan Pancytopenia: Secondary to influenza viral infection. Suspected cirrhosis. Follow-up blood counts. Multiple other medical problems as outlined in past medical history Full code Lovenox for DVT prophylaxis Attestations Medical Necessity Statement*: Continue admission for assessment of management of bacterial pneumonia superimposed on influenza pneumonia, new A. fib with RVR. Coding Level of Care Code Acute Wire Straightener for [facility] Fwd Diagnoses Pneumonia J18.9 Paroxysmal atrial fibrillation with RVR I48.0 CHF (congestive heart failure) I50.9 Hyponatremia E87.1 Diabetes mellitus type 2, insulin dependent E11.9; Z79.4 Coronary artery disease I25.10 Cirrhosis K74.60
[2022-04-27] MEDS: ipratropium-albuterol 3 mL Neb INHALATION (20:05)
[2022-04-27] MEDS: atorvastatin 40 mg Tablet 20 MG PO (21:15)
[2022-04-28] VITALS (13 sets, daily range): BP systolic 126–158; BP diastolic 76–87; PULSE 78–109; RESP 14–25; TEMP 36.5–36.8; O2SAT 92–98
[2022-04-28] MEDS: enoxaparin 100 mg/mL Syringe 150 MG SUBCUT ×2 (04:01→17:21)
[2022-04-28 05:25] LABS: Basophils % 0.5 %; Eosinophils # 0.1 10^3/uL (0.0-0.8); Eosinophils % 1.2 %; Hematocrit 41.9 % (42.0-52.0); Lymphocytes # 1.1 10^3/uL (0.8-4.8); Lymphocytes % 26.6 %; Mean Corpuscular HGB Conc 33.4 g/dL (30.0-36.0); Mean Corpuscular Hemoglobin 31.5 pg (28.0-34.0); Mean Corpuscular Volume 94.4 fl (80-94); Monocytes # 0.4 10^3/uL (0.2-0.9); Monocytes % 9.3 %; Neutrophils # 2.55 10^3/uL (1.8-7.7); Neutrophils % 62.2 %; Nucleated Red Blood Cells % 0 %; Platelet Count 99 10^3/cmm (130-400); Red Blood Count 4.44 10^6/uL (4.1-5.3); White Blood Count 4.1 10^3/uL (4.0-10.0)
[2022-04-28] MEDS: lisinopril 20 mg Tablet PO ×2 (05:45→17:19)
[2022-04-28 05:48] LABS: Blood Urea Nitrogen 17 mg/dL (6-20); Calcium 8.2 mg/dL (8.5-10.5); Carbon Dioxide 28 mmol/L (22-29); Chloride 96 mmol/L (98-107); Glomerular Filtration Rate 137.9 mL/min (90-130); Glucose 195 mg/dL (65-115); Magnesium 1.9 mg/dL (1.7-2.3); Osmolality Calculated 283 mOsm/kg (285-295); Sodium 133 mmol/L (136-145)
[2022-04-28] MEDS: ipratropium-albuterol 3 mL Neb INHALATION ×2 (07:52→20:13)
[2022-04-28] MEDS: budesonide 0.5 mg/2 mL Neb INHALATION ×2 (07:52→20:13)
[2022-04-28 10:26] LABS: Estmated Average Glucose 171; Hemoglobin A1C 7.6 % (4.0-6.0)
[2022-04-28] MEDS: potassium chloride ER 10 mEq Tablet PO (10:26)
[2022-04-28] MEDS: guaiFENesin 600 mg Tablet PO ×2 (10:27→17:19)
[2022-04-28] MEDS: pregabalin 100 mg Capsule PO ×3 (10:27→20:45)
[2022-04-28] MEDS: tamsulosin 0.4 mg Capsule PO ×2 (10:27→17:19)
[2022-04-28] MEDS: aspirin 81 mg EC Tablet PO (10:27)
[2022-04-28] MEDS: metoprolol tartrate 50 mg Tablet PO ×2 (10:27→20:45)
[2022-04-28] MEDS: amlodipine 10 mg Tablet PO (10:28)
[2022-04-28] MEDS: isosorbide mononitrate ER 30 mg Tablet PO (10:28)
[2022-04-28] MEDS: FUROsemide 10 mg/mL SDV 4mL 40 MG IVP ×2 (10:28→21:38)
[2022-04-28 10:53] LABS: Procalcitonin 0.08 ng/mL (0-0.5); Vitamin B12 334 pg/mL (232-1245)
[2022-04-28 10:59] LABS: D Dimer 0.78 ug/mIFEU (0-0.59)
[2022-04-28 11:19] LABS: Folate Level 8.1 ng/mL (4.5-32.2)
--- NOTE | 2022-04-28 14:04 | P.PN_ITS ---
Subjective Subjective: Hospital course, labs appreciated. On examination patient sitting up comfortably in bed. States he is able to walk around with some difficulty in breathing but feeling a lot better than when he came in. Currently is on 3 L of oxygen supplementation saturating more than 90%. Has remained hemodynamically stable and afebrile. Does not use oxygen at home. He states swelling in his lower legs have gone down further. States he has not seen his knee for many years and finally he is able to see the contour of his knee. He thinks his symptoms are secondary to fluid buildup in his body. Vitals/I&O/Wt Last Vital Signs Temp 98.2 F 04/28/22 08:00 Pulse 93 04/28/22 08:00 Resp 19 H 04/28/22 08:00 BP 145/77 04/28/22 08:00 Pulse Ox 94 04/28/22 08:00 O2 Del Method 04/28/22 07:52 O2 Flow Rate 3 04/28/22 07:52 04/27/22 04/28/22 04/28/22 22:59 06:59 14:59 Intake Total 1979 640 / 2620 240 / 240 Balance 1979 640 / 2620 240 / 240 Weight last 48 hrs Weight 158.757 kg Physical Exam Narrative: General exam is an obese white male, with mild respiratory distress with no tachypnea, HEENT: Atraumatic normocephalic. Pupils equally round. Oropharynx clear. Neck is obese. No obvious thyromegaly. Supple. Cardiovascular regular rate and rhythm, heart sounds distant, no murmur Lungs: Normal vesicular breath sounds bilaterally, diminished breath sounds at the bases but no crackles. Faint expiratory wheezes heard bibasilar. Abdomen is soft obese nontender positive bowel sounds. Organomegaly is difficult to estimate. 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 At least trace to 1+ edema bilaterally left greater than right. Skin no rash Neuro: No obvious deficits ichthyosis Data 04/28/22 04:27 04/28/22 04:27 Micro: Microbiology 04/28/22 05:55 Gram Stain - Final Sputum - Expectorated Sputum A&P Assessment and plan (1) Hypoxia: Secondary to combination of flu, pneumonia and congestive heart failure. Oxygen supplementation keeping saturation over 90%. Ipratropium, Xopenex every 6 hourly, budesonide twice daily. Incentive spirometry. (2) Pneumonia: MRSA negative, COVID-19 PCR negative, flu a PCR positive. Concerns for bacterial superimposed pneumonia as well. For now continue ceftriaxone, azithromycin for superimposed bacterial pneumonia and Tamiflu for flu A pneumonia Blood cultures so far negative. Sputum culture running. (3) Paroxysmal atrial fibrillation with RVR: New atrial fibrillation with RVR. Most likely triggered secondary to acute illness. Continue with metoprolol 50 mg twice daily. Telemetry. Anticoagulation with full dose Lovenox 150 mg twice daily. We will plan to switch to Eliquis on discharge. Patient is agreeable for anticoagulation after discussion with physician regarding merits and demerits of anticoagulation for stroke prevention. (4) CHF (congestive heart failure): Echocardiogram shows an EF of 65%, normal RV function, possible diastolic dysfunction, no regional wall motion abnormality. Strict input output charting, daily weights. Fluid restriction up to 1500 cc. Continue with Lasix 40 mg IV twice daily. We will try to discharge on Lasix 40 mg twice daily with close renal monitoring. (5) Hyponatremia: Continue to improve. Most likely a manifestation of overall increase in total body fluid, likely CHF. Cannot exclude cirrhosis as a component. If this does not improve, fluid restriction could be considered. (6) Diabetes mellitus type 2, insulin dependent: Patient with underlying type 2 diabetes Sliding scale insulin Consistent carb diet (7) Coronary artery disease: Continue his chronic medicines for coronary artery disease. This includes a beta-jeremy, aspirin, statin, Imdur (8) Cirrhosis: Suspected liver cirrhosis. There is suggestion of this on CT scan as well as splenomegaly. This likely explains his slightly elevated MCV, may explain part of his hyponatremia, and would explain his slightly low platelets. Hepatitis panel negative. He is to discuss this with his primary care provider, and that he may need EGD to surveilled for esophageal varices considering last CT suggested portal hypertension. At this point he has no history of significant bleeding, although he does have a history of iron deficiency anemia with his gastric banding in the past. Plan Full code. Full dose Lovenox will suffice for DVT prophylaxis. Carb consistent cardiac diet. Attestations Medical Necessity Statement*: Requires further hospitalization for management of hypoxia secondary to flu A pneumonia, superimposed bacterial pneumonia, diastolic congestive heart failure in setting of atrial fibrillation with rapid ventricular response. 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
[2022-04-28] MEDS: levalbuterol 0.63 mg/3 mL Neb INHALATION (15:17)
[2022-04-28] MEDS: ipratropium 0.5 mg/2.5 mL Neb INHALATION (15:17)
[2022-04-28] MEDS: eucerin cream 113 gm Jar 1 APPLIC TOPICAL ×2 (17:17→17:19)
[2022-04-28] MEDS: azithromycin 500 MG in sodium chloride 0.9% 250 ML 250 MG IV (17:17)
[2022-04-28] MEDS: cefTRIAXone 1,000 MG in sodium chloride 0.9% (plus) 50 ML 100 MG IV (17:18)
[2022-04-28] MEDS: oseltamivir phosphate 75 mg Capsule PO (17:24)
[2022-04-28] MEDS: atorvastatin 40 mg Tablet 20 MG PO (20:46)
[2022-04-29 04:00] VITALS: BP 147/82; PULSE 78; RESP 14; TEMP 36.5; O2SAT 95
[2022-04-29] MEDS: enoxaparin 100 mg/mL Syringe 150 MG SUBCUT (04:19)
[2022-04-29 04:22] LABS: Basophils % 0.3 %; Eosinophils # 0.1 10^3/uL (0.0-0.8); Eosinophils % 2.3 %; Hematocrit 40.2 % (42.0-52.0); Hemoglobin 13.7 g/dL (11.7-16.6); Lymphocytes # 1.1 10^3/uL (0.8-4.8); Lymphocytes % 30.3 %; Mean Corpuscular HGB Conc 34.1 g/dL (30.0-36.0); Mean Corpuscular Hemoglobin 31.6 pg (28.0-34.0); Mean Corpuscular Volume 92.6 fl (80-94); Mean Platelet Volume 10.9 fL (7.4-10.4); Monocytes # 0.4 10^3/uL (0.2-0.9); Monocytes % 9.9 %; Neutrophils # 2.01 10^3/uL (1.8-7.7); Neutrophils % 56.9 %; Nucleated Red Blood Cells % 0 %; Platelet Count 95 10^3/cmm (130-400); Red Blood Count 4.34 10^6/uL (4.1-5.3); Red Cell Distribution Width 12.7 % (12.1-15.1); White Blood Count 3.5 10^3/uL (4.0-10.0)
[2022-04-29 04:32] LABS: Alanine Aminotransferase 44 U/L (0-41); Albumin Level 3.1 g/dL (3.5-5.2); Alkaline Phosphatase 115 U/L (40-130); Aspartate Amino Transferase 49 U/L (0-40); Blood Urea Nitrogen 13 mg/dL (8-23); Calcium 7.9 mg/dL (8.5-10.5); Carbon Dioxide 28 mmol/L (22-29); Chloride 97 mmol/L (98-107); Globulin 3.4 g/dL (1.3-4.6); Glomerular Filtration Rate 137.4 mL/min (90-130); Glucose 220 mg/dL (65-115); Osmolality Calculated 285 mOsm/kg (285-295); Sodium 134 mmol/L (136-145); Total Bilirubin 0.3 mg/dL (0.15-1.2); Total Protein 6.5 g/dL (6.6-8.7)
[2022-04-29 04:33] LABS: Chol HDL Ratio 4.52 mg/dL (1.0-5.00); Cholesterol 122 mg/dL (0-200); HDL Cholesterol 27 mg/dL (60-100); LDL Cholesterol Calculated 69 mg/dL (50-129); Triglycerides 128 mg/dL (0-150); VLDL Cholestrol Calculation 26 mg/dL (0-30)
[2022-04-29] MEDS: lisinopril 20 mg Tablet PO (05:25)
[2022-04-29 06:00] VITALS: PULSE 85
--- NOTE | 2022-04-29 07:15 | PC.NURSE ---
Report received from Mariana COLÓN at this time.
[2022-04-29] MEDS: levalbuterol 0.63 mg/3 mL Neb INHALATION (07:58)
[2022-04-29] MEDS: ipratropium 0.5 mg/2.5 mL Neb INHALATION (07:58)
[2022-04-29] MEDS: budesonide 0.5 mg/2 mL Neb INHALATION (07:58)
[2022-04-29 08:00] VITALS: BP 137/83; PULSE 91; PULSE 97; RESP 18; TEMP 36.5; O2SAT 95
[2022-04-29 08:05] VITALS: PULSE 92
[2022-04-29] MEDS: guaiFENesin 600 mg Tablet PO (09:48)
[2022-04-29] MEDS: pregabalin 100 mg Capsule PO (09:48)
[2022-04-29] MEDS: potassium chloride ER 10 mEq Tablet PO (09:48)
[2022-04-29] MEDS: tamsulosin 0.4 mg Capsule PO (09:48)
[2022-04-29] MEDS: isosorbide mononitrate ER 30 mg Tablet PO (09:48)
[2022-04-29] MEDS: aspirin 81 mg EC Tablet PO (09:49)
[2022-04-29] MEDS: amlodipine 10 mg Tablet PO (09:49)
[2022-04-29] MEDS: metoprolol tartrate 50 mg Tablet PO (09:49)
[2022-04-29] MEDS: eucerin cream 113 gm Jar 1 APPLIC TOPICAL (09:57)
[2022-04-29] MEDS: oseltamivir phosphate 75 mg Capsule PO (10:01)
[2022-04-29 11:46] VITALS: O2SAT 90; O2SAT 95
--- NOTE | 2022-04-29 12:13 | P.DS_ITS ---
Discharge Providers Date of Admission: 04/25/22 14:39 Date of Discharge: April 29, 2022 Attending Provider at Admission: Sae Howard MD Attending Provider at Discharge: Juanito Maradiaga MD Primary Care Provider: Izabela Yung NP Diagnoses at Discharge Discharge Diagnosis (1) Hypoxia: Status: Acute (2) Pneumonia: Status: Acute (3) Paroxysmal atrial fibrillation with RVR: Status: Acute (4) CHF (congestive heart failure): Status: Acute (5) Hyponatremia: Status: Acute (6) Diabetes mellitus type 2, insulin dependent: Status: Acute (7) Coronary artery disease: Status: Acute (8) Cirrhosis: Status: Acute Reason for Visit Reason for Visit: low ox, sob Brief History: History as per HPI: Mervin Olivas is a 61 year old male who reports he has had increasing shortness of breath over the last week.? He reports he has been coughing, and perhaps running some low-grade temperature.? Sputum has been productive of a clear sputum.? He reports no significant chest discomfort.? He has become more short of breath with any exertion or moving.? He reports he is always swollen, and it does not seem worse than usual.? He reports that rather recently he also had his gastric band adjusted as he was unable to tolerate any solids by mouth.? However, he denies any recent spitting up/vomiting, or choking when eating.? He reports he has had no real sick contacts, but also comments that his has been coughing a little bit lately.? He continues to smoke. Hospital Course Hospital Course Patient was under the hospital further evaluation and management of hypoxia. On admission he was found to be flu positive. There was concern for bacterial superimposed infection as well hence he was started on broad-spectrum antibiotics. During hospitalization patient developed A. fib with RVR for which his rate limiting medications were increased. He was started on full dose anticoagulation. He also received multiple doses of Lasix during hospitalization. Patient responded well to the treatment. His blood culture and sputum culture remain negative. Home O2 evaluation has been done prior to discharge he does not qualify for any oxygen. He has been discharged in hemodynamically stable condition with advised to continue doing incentive spirometry at home, nebulization treatment going forward for next 1 week along with Lasix 40 mg twice daily. He is advised to follow-up with his primary care provider within next 10 days for a repeat CMP. Physical Exam Narrative: General exam is an obese white male, with mild respiratory distress with no tachypnea, HEENT: Atraumatic normocephalic. Pupils equally round. Oropharynx clear. Neck is obese. No obvious thyromegaly. Supple. Cardiovascular regular rate and rhythm, heart sounds distant, no murmur Lungs: Normal vesicular breath sounds bilaterally, diminished breath sounds at the bases but no crackles. Faint expiratory wheezes heard bibasilar. Abdomen is soft obese nontender positive bowel sounds. Organomegaly is difficult to estimate. Small bruises noted just to the right of midline which patient relates was associated with gastric band adjustment exam is deferred Extremities show chronic venous stasis changes left greater than right with ic hthyosis of the skin on the left. At least trace to 1+ edema bilaterally left greater than right. Skin no rash Neuro: No obvious deficits ichthyosis Discharge Data Studies Completed and Pending Completed Studies During Hospitalization Category Date Time Status XR chest 1V portable [id number] Stat Exams 04/25/22 09:03 Completed CV. echo wo/w contrast [id number] Routine Ultrasound 04/26/22 06:00 Completed Pending at discharge Category Date Time Status Blood Culture Stat Lab 04/25/22 09:43 Results Sputum Culture and Gram Stain Routine Lab 04/28/22 05:55 Results Radiology Impressions Chest X-Ray 04/25/22 09:03 IMPRESSION: 1. Mild bibasal infiltrate suspicious for pneumonia. 2. Mild cardiac enlargement. Echocardiogram: CONCLUSIONS ?1. This is a technically difficult study.? Optison was used per ?protocol. ?2.? Normal left ventricular size, systolic function and wall ?thickness, with no regional wall motion abnormalities. Left ?ventricular ejection fraction is estimated at 65 %. ?3.? Normal right ventricular size and systolic function. ?4.? Direct comparison to previous study is not possible due to ?technical differences in study. ?Halina Ren MD ?(Electronically Signed) ?Final Date:? ? ? 26 April 2022 ? 14:34 S Laboratory Results WBC 3.5 10^3/uL (4.0-10.0) L 04/29/22 03:40 RBC 4.34 10^6/uL (4.1-5.3) 04/29/22 03:40 Hgb 13.7 g/dL (11.7-16.6) 04/29/22 03:40 Hct 40.2 % (42.0-52.0) L 04/29/22 03:40 MCV 92.6 fl (80-94) 04/29/22 03:40 MCH 31.6 pg (28.0-34.0) 04/29/22 03:40 MCHC 34.1 g/dL (30.0-36.0) 04/29/22 03:40 RDW 12.7 % (12.1-15.1) 04/29/22 03:40 Plt Count 95 10^3/cmm (130-400) L 04/29/22 03:40 MPV 10.9 fL (7.4-10.4) H 04/29/22 03:40 Neut % (Auto) 56.9 % 04/29/22 03:40 Lymph % (Auto) 30.3 % 04/29/22 03:40 [place] % (Auto) 9.9 % 04/29/22 03:40 Eos % (Auto) 2.3 % 04/29/22 03:40 Baso % (Auto) 0.3 % 04/29/22 03:40 Neut # (Auto) 2.01 10^3/uL (1.8-7.7) 04/29/22 03:40 Lymph # (Auto) 1.1 10^3/uL (0.8-4.8) 04/29/22 03:40 [place] # (Auto) 0.4 10^3/uL (0.2-0.9) 04/29/22 03:40 Eos # (Auto) 0.1 10^3/uL (0.0-0.8) 04/29/22 03:40 Baso # (Auto) 0.0 10^3/uL (0.0-0.1) 04/29/22 03:40 Nucleated RBC % (auto) 0 % 04/29/22 03:40 Nucleated RBCs # 0.0 /100WBC 04/29/22 03:40 PT 14.50 SECONDS (12.1-14.9) 04/26/22 05:15 INR 1.10 (0.8-1.2) 04/26/22 05:15 D-Dimer 0.78 ug/mIFEU (0-0.59) H 04/28/22 10:30 Sodium 134 mmol/L (136-145) L 04/29/22 03:40 Potassium 4.0 mmol/L (3.5-5.1) 04/29/22 03:40 Chloride 97 mmol/L (98-107) L 04/29/22 03:40 Carbon Dioxide 28 mmol/L (22-29) 04/29/22 03:40 Anion Gap 13.0 (5-19) 04/29/22 03:40 BUN 13 mg/dL (8-23) 04/29/22 03:40 Creatinine 0.6 mg/dL (0.7-1.2) L 04/29/22 03:40 GFR Calculation 137.4 mL/min (90-130) H 04/29/22 03:40 Glucose 220 mg/dL (65-115) H 04/29/22 03:40 Estimat Average Glucose 171 04/28/22 04:27 Hemoglobin A1c 7.6 % (4.0-6.0) H 04/28/22 04:27 Calculated Osmolality 285 mOsm/kg (285-295) 04/29/22 03:40 Lactic Acid 1.8 mmol/L (0.5-2.2) 04/25/22 09:32 Calcium 7.9 mg/dL (8.5-10.5) L 04/29/22 03:40 Magnesium 1.9 mg/dL (1.7-2.3) 04/28/22 04:27 Magnesium Cancelled 04/28/22 04:27 Total Bilirubin 0.3 mg/dL (0.15-1.2) 04/29/22 03:40 AST 49 U/L (0-40) H 04/29/22 03:40 ALT 44 U/L (0-41) H 04/29/22 03:40 Alkaline Phosphatase 115 U/L (40-130) 04/29/22 03:40 Troponin T Baseline 25 ng/L (0-15) H 04/25/22 09:32 Troponin T 120 Minute 26.07 ng/L (0-15) H 04/25/22 11:14 Delta Troponin T 1.07 ABS# (0-10) 04/25/22 11:14 Troponin T Hi Sens 6Hr 22.24 ng/L (0-15) H 04/25/22 15:15 Troponin T Hi Sens 6Hr Delta -2.76 ng/L (0-12) L 04/25/22 15:15 NT-Pro-B Natriuret Pep 436 pg/mL (0-125) H 04/25/22 09:32 Total Protein 6.5 g/dL (6.6-8.7) L 04/29/22 03:40 Albumin 3.1 g/dL (3.5-5.2) L 04/29/22 03:40 Globulin 3.4 g/dL (1.3-4.6) 04/29/22 03:40 Triglycerides 128 mg/dL (0-150) 04/29/22 03:40 Cholesterol 122 mg/dL (0-200) 04/29/22 03:40 LDL Cholesterol, Calc 69 mg/dL (50-129) 04/29/22 03:40 Total VLDL Cholesterol 26 mg/dL (0-30) 04/29/22 03:40 HDL Cholesterol 27 mg/dL (60-100) L 04/29/22 03:40 Cholesterol/HDL Ratio 4.52 mg/dL (1.0-5.00) 04/29/22 03:40 Vitamin B12 334 pg/mL (232-1245) 04/28/22 04:27 Folate 8.1 ng/mL (4.5-32.2) 04/28/22 10:30 Procalcitonin 0.08 ng/mL (0-0.5) 04/28/22 04:27 Urine Color Yellow (Yellow) 04/25/22 10:19 Urine Appearance Cloudy (CLEAR) A 04/25/22 10:19 Urine pH 6 (5-7) 04/25/22 10:19 Ur Specific [place] 1.015 (1.005-1.030) 04/25/22 10:19 Urine Protein 3+ (Negative) H 04/25/22 10:19 Urine Glucose (UA) 2+ (Normal) H 04/25/22 10:19 Urine Ketones Negative (Negative) 04/25/22 10:19 Urine Blood 3+ (Negative) H 04/25/22 10:19 Urine Nitrate Negative (Negative) 04/25/22 10:19 Urine Bilirubin Neg (Negative) 04/25/22 10:19 Urine Urobilinogen Norm mg/dL (Negative) 04/25/22 10:19 Ur Leukocyte Esterase Negative (Negative) 04/25/22 10:19 Urine RBC 5-10 /hpf (0-2) H 04/25/22 10:19 Urine WBC 0-4 /hpf (0-5) H 04/25/22 10:19 Ur Squamous Epith Cells 0-4 /hpf (0-5) H 04/25/22 10:19 Amorphous Sediment Not Reportable 04/25/22 10:19 Urine Bacteria Trace /hpf (NONE) 04/25/22 10:19 U Random Total Protein 451 mg/dL 04/25/22 10:19 Urine Creatinine 32 mg/dL (39-259) L 04/25/22 10:19 Nasal Influ A H1 2008 PCR Not detected (NOT DETECT) 04/25/22 17:23 Coronavirus 229E (PCR) Not detected (NOT DETECT) 04/25/22 14:20 Hepatitis A IgM Ab Non-reactive (Nonreactive) 04/25/22 09:32 Hep Bs Antigen Non-reactive (Nonreactive) 04/25/22 09:32 Hep B Core IgM Ab Non-reactive (Nonreactive) 04/25/22 09:32 Hepatitis C Antibody Non-reactive (Nonreactive) 04/25/22 09:32 Influenza A (H1) PCR Not detected (NOT DETECT) 04/25/22 17:23 Influenza A (H3) PCR Detected (NOT DETECT) A 04/25/22 17:23 Influenza Type A (PCR) Detected (NOT DETECT) A 04/25/22 17:23 Influenza Type B (PCR) Not detected (NOT DETECT) 04/25/22 17:23 SARS-CoV-2 (PCR) Not detected (NOT DETECT) 04/25/22 14:20 Vitals Last Vital Signs Temp 97.7 F 04/29/22 08:00 Pulse 92 04/29/22 08:05 Resp 18 04/29/22 08:00 BP 137/83 04/29/22 08:00 Pulse Ox 95 04/29/22 11:46 O2 Del Method 04/29/22 08:00 O2 Flow Rate 2 04/29/22 08:00 Discharge Plan Discharge Patient Disposition: Home Condition: Stable Prescriptions: New oseltamivir 75 mg Capsule 75 mg PO BID 2 Days Qty: 4 0RF guaifenesin [Mucinex] 600 mg Tablet Extended Release 12hr 600 mg PO BID Qty: 14 0RF metoprolol tartrate 50 mg Tablet 50 mg PO BID@0900,2100 Qty: 60 0RF Eliquis 5 mg tablet 5 mg PO BID Qty: 60 0RF amoxicillin-pot clavulanate [Augmentin] 500-125 mg tablet 1 tab PO Q12H Qty: 6 0RF levofloxacin 500 mg tablet 500 mg PO Q24H 3 Days Qty: 3 0RF Continued potassium chloride 10 mEq capsule, extended release 10 meq PO DAILY ferrous fumarate 325 mg (106 mg iron) tablet 650 mg PO BID metformin 1,000 mg tablet 1,000 mg PO BID tamsulosin 0.4 mg capsule 0.4 mg PO BID ibuprofen 800 mg tablet 800 mg PO DAILY amlodipine 10 mg tablet 10 mg PO DAILY hydrocodone-acetaminophen 7.5-325 mg tablet 1 tab PO Q4H PRN (Reason: Pain) lisinopril 20 mg tablet 20 mg PO Q12H isosorbide mononitrate 30 mg tablet extended release 24 hr 30 mg PO DAILY aspirin [Helen Low Dose Aspirin] 81 mg Tablet,Delayed Release (Dr/Ec) 81 mg PO DAILY simvastatin 40 mg tablet 40 mg PO BEDTIME nitroglycerin 0.4 mg Tablet, Sublingual 0.4 mg SUBLINGUAL Q5M PRN (Reason: Chest Pain) glimepiride 1 mg tablet 1 mg PO DAILY pregabalin 100 mg capsule 100 mg PO TID Changed furosemide 40 mg tablet 40 mg PO BID Qty: 60 0RF Discontinued carvedilol 3.125 mg tablet 3.125 mg PO BID Discharge Orders: Discharge Order (Routine); Ordered 04/29/22 Ordered By: Juanito Maradiaga Referrals: Izabela Yung NP [Primary Care Provider] - 7-10 days Discharge Diet: Cardiac Discharge Activity: Resume usual activity and Increase activity as tolerated Patient Instructions: Opioid Safety Activity Restrictions/Additional Instructions: Dose of Lasix has been increased to 40 mg twice daily. Coreg has been stopped. Take metoprolol 50 mg twice daily instead. Eliquis is a blood thinner which he supposed to take 5 mg morning and evening. You will be on antibiotic Augmentin and Levaquin for next 3 days. Continue taking Tamiflu for 3 more days to finish the course of treatment. Please follow-up with a primary care provider within next 1 week for repeat CMP. Discharge Attestations Time Spent in Discharge Care*: greater than 30 min Specific Discharge Activities: educating patient, discussing with pcp/other providers, discussing with adult protective caseworker/social workers/dc planners, documenting/other paperwork and evaluating patient/reviewing data Status at Discharge: Cognitive status at discharge: cognitively intact , Behavioral status at discharge: cooperative , Functional status at discharge: independent ambulation , Overall status at discharge: patient is back to baseline Quality Metrics Clinical Quality Measures [ No reported AMI, CVA or VTE this stay] Coding Level of Care Code Acute Chg FW DC note Diagnoses Hypoxia R09.02 Pneumonia J18.9 Paroxysmal atrial fibrillation with RVR I48.0 CHF (congestive heart failure) I50.9 Hyponatremia E87.1 Diabetes mellitus type 2, insulin dependent E11.9; Z79.4 Coronary artery disease I25.10 Cirrhosis K74.60
[2022-04-29] MEDS: FUROsemide 40 mg Tablet PO (12:51)
[2022-04-29 13:59] VITALS: BP 140/80; PULSE 90; RESP 16; TEMP 36.7; O2SAT 92
== END 2022-04-29 13:22 | disposition home or self-care (01) | DRG 193 ==
LOC: ER 09:07 → MEDSURG 14:40
PROVIDERS: Internal Medicine; Admitting Provider Internal Medicine; Emergency Provider Family Medicine; PCP Nurse Practitioner Family; Visit Provider Student in an Organized Health Care Education/Training Program
DX: J10.00 Influenza due to other identified influenza virus with unspecified type of pneumonia (principal); I50.31 Acute diastolic (congestive) heart failure; N13.8 Other obstructive and reflux uropathy; E87.1 Hypo-osmolality and hyponatremia; K76.6 Portal hypertension; F17.200 Nicotine dependence, unspecified, uncomplicated; N40.1 Benign prostatic hyperplasia with lower urinary tract symptoms; K74.60 Unspecified cirrhosis of liver; I25.10 Atherosclerotic heart disease of native coronary artery without angina pectoris; E11.40 Type 2 diabetes mellitus with diabetic neuropathy, unspecified; E11.51 Type 2 diabetes mellitus with diabetic peripheral angiopathy without gangrene; E78.5 Hyperlipidemia, unspecified; I11.0 Hypertensive heart disease with heart failure; G47.33 Obstructive sleep apnea (adult) (pediatric); J15.9 Unspecified bacterial pneumonia; Z98.84 Bariatric surgery status; Z79.82 Long term (current) use of aspirin; Z79.891 Long term (current) use of opiate analgesic; Z79.84 Long term (current) use of oral hypoglycemic drugs; I48.0 Paroxysmal atrial fibrillation; D50.9 Iron deficiency anemia, unspecified
CPT/HCPCS: 36415; 71045; 80048; 80053; 80061; 80074; 81001; 82575; 82607; 82746; 83036; 83605; 83735; 83880; 84145; 84156; 84484; 85025; 85378; 85610; 86403; 87040; 87070; 87205; 87449; 87631; 87635; 87641; 90471; 90686; 93005; 94640; 94760; 96365; 96372; 96375; 99285; C8929; J0456; J0696; J1650; J1940; J1956; J2930; J7050; J7614; J7626; J7644

== ENCOUNTER 2022-05-07 10:26 | Oncology outpatient (recurring) (ONCR) | payer BC, SELFPAY ==
[2022-05-11 00:54] LABS: Methylmalonic Acid 230 nmol/L (87-318)
== END 2022-06-03 23:59 | disposition home or self-care (01) ==
LOC: LAB 10:31 → ONCMED 10:35
PROVIDERS: PCP Nurse Practitioner Family; Visit Provider Internal Medicine Medical Oncology
DX: D50.8 Other iron deficiency anemias (principal)
CPT/HCPCS: 36415; 83921

== ENCOUNTER 2024-02-29 10:31 | Outpatient (CLI) | payer OTHER, SELFPAY ==
--- NOTE | 2024-02-29 10:42 | XRR_ITS ---
PROCEDURE INFORMATION: Exam: XR Lumbosacral Spine Exam date and time: 02/29/2024 11:10 AM Age: 63 years old Clinical indication: Low back pain; Additional info: Numbness of R foot/anesthesia of skin TECHNIQUE: Imaging protocol: Radiologic exam of the lumbosacral spine. Views: 2 or 3 views. Total images: 2 COMPARISON: CR XR sacrum coccyx min 2V [id number] 02/29/2024 11:10 AM FINDINGS: Bones/joints: There are five [id number] lumbar-type vertebral bodies. Overall retention of lumbar vertebral body heights. No subluxation demonstrated. Mild disc space narrowing at L3-L4 with vacuum disc. Moderate multilevel endplate osteophyte formation noted primarily anteriorly, throughout the lumbar spine and the visualized lower thoracic spine. Slight narrowing of the left lateral aspect of the L3-L4 disc space Soft tissues: Soft tissues demonstrate prominent atherosclerotic vascular calcification. A ring-like implanted density is present within the upper abdomen anteriorly. XR/XR lumbar spine 2-3V* [id number] IMPRESSION: Multilevel degenerative changes, no acute lumbar spine fracture or subluxation identified.
--- NOTE | 2024-02-29 11:05 | XRR_ITS ---
PROCEDURE INFORMATION: Exam: XR Sacrum and Coccyx, 2 or More Views Exam date and time: 02/29/2024 11:10 AM Age: 63 years old Clinical indication: Pain in coccyx area; Additional info: Numbness in right foot TECHNIQUE: Imaging protocol: XR of the sacrum and coccyx, 2 or more views. Total images: 3 COMPARISON: CR XR lumbar spine 2-3V* [id number] 02/29/2024 11:10 AM FINDINGS: Bones/joints: Chronic degenerative changes both iliac crests. The sacroiliac joints and pubic symphysis are not diastatic. There is minimal degenerative change in the coccyx which appears essentially stable from 09/12/2019. There is no acute fracture identified in the sacrum or coccyx. Soft tissues: Atherosclerosis and distal abdominal vascular stents are present. Surgical clips overlie the left hip. XR/XR sacrum coccyx min 2V [id number] IMPRESSION: No acute osseous abnormality identified.
== END 2024-02-29 10:32 | disposition home or self-care (01) ==
PROVIDERS: PCP Nurse Practitioner Family; Visit Provider Nurse Practitioner Family
DX: M51.362 Other intervertebral disc degeneration, lumbar region with discogenic back pain and lower extremity pain (principal); M25.78 Osteophyte, vertebrae; M76.21 Iliac crest spur, right hip; M76.22 Iliac crest spur, left hip; R20.0 Anesthesia of skin
CPT/HCPCS: 72100; 72220

== ENCOUNTER 2024-04-01 08:27 | Outpatient (CLI) | payer OTHER, SELFPAY ==
--- NOTE | 2024-04-01 08:39 | CT_ITS ---
WS: [id number] CT HEAD NONCONTRAST HISTORY: DIZZINESS TECHNIQUE: Contiguous axial imaging performed through the brain. Bone and soft tissue windows. Sagitt al and coronal reformats reviewed. All CT scans at [facility] use at least one of these dose optimization techniques: automated exposure control; mA and/or kV adjustment per patient size (includ es targeted exams where dose is matched to clinical indication); or iterative reconstruction. DLP: 1126.55 mGy.cm COMPARISON: None available. No acute intracranial hemorrhage, midline shift or mass effect. Mild symmetric atrophy with minimal small vessel disease. No acute infarct. Ventricles: Normal size with no hydrocephalus. Dense calcification of the distal vertebral arteries and intracranial carotid arteries. Paranasal sinuses: As visualized are clear. Mastoid air cells: Well pneumatized. Calvarium and scalp: Calcified nodules in the calvarium are probably related to sebaceous cysts. CT/CT head wo con* [id number] IMPRESSION: 1. No acute intracranial hemorrhage or edema. 2. Advanced calcification of the distal vertebral arteries and in the intracra nial carotid arteries. 3. Minimal atrophy and small vessel disease.
--- NOTE | 2024-04-01 11:16 | MR_ITS ---
[address] [address] Magnetic Resonance Report Cancelled Patient: Mervin Olivas Unit #: [id number] : 1960 Age/Sex: 63 / M ADM Date: 03/09/24 Loc: [facility] Room/Bed: Attending Dr: Izabela Yung NURSING SUPPORT WORKER-Serene Ordering Provider/Ordering MD: Date of Service: Procedure(s): Accession Number(s): Report Number: [id number] WS: [id number] MRI LUMBAR SPINE NONCONTRAST HISTORY: RLE PAIN COMPARISON: None available. TECHNIQUE: Sagittal and axial multisequence imaging is submitted. Mild curvature lumbar spine. L3 retrolisthesis by 2 mm. Disc spaces are narrowed and desiccated. Osteophytic ridging at all levels. No marrow edema or acute fracture. Conus terminates normally at L1. L1-L2: Diffuse annular disc bulging. RIGHT foraminal disc protrusion. Mild disc effacement of ventral CSF with moderate ligamentum flavum and facet arthritis. Mild central and bilateral subarticular recess stenosis. L2-L3: Diffuse moderate annular disc bulging encroaching upon the ventral thecal sac. Mild ligamentum flavum and facet arthritis. Disc encroachment upon the traversing L3 nerve roots. Mild central, bilateral subarticular recess and foraminal stenosis. L3-L4: Marked annular disc bulging with osteophytic ridging, ligamentum flavum and facet arthritis. Severe central with bilateral subarticular recess and RIGHT foraminal stenosis. Moderate LEFT foraminal stenosis. L4-L5: Diffuse marked annular disc bulging with osteophytic ridging, facet and ligamentum flavum hypertrophy. Disc encroachment upon the traversing L4 and L5 nerve roots. Moderate to severe central, bilateral subarticular recess and foraminal stenosis. L5-S1: Diffuse annular disc bulging with osteophytic ridging. Moderate central disc protrusion. Disc protrusion contacts the traversing S1 nerve roots. Slightly greater contact upon the S1 nerve root. Mild central with moderate subarticular recess and severe bilateral foraminal stenosis. Paravertebral soft tissues are negative. Dictated By:Mariana Smith DO Signed By: Signed Date/Time: DD/ 1110 [facility]
== END 2024-04-01 08:28 | disposition home or self-care (01) ==
LOC: RAD 08:28
PROVIDERS: PCP Nurse Practitioner Family; Visit Provider Nurse Practitioner Family
DX: M51.360 Other intervertebral disc degeneration, lumbar region with discogenic back pain only (principal); R42 Dizziness and giddiness; M25.78 Osteophyte, vertebrae; M99.63 Osseous and subluxation stenosis of intervertebral foramina of lumbar region; M51.370 Other intervertebral disc degeneration, lumbosacral region with discogenic back pain only; M99.64 Osseous and subluxation stenosis of intervertebral foramina of sacral region; I65.03 Occlusion and stenosis of bilateral vertebral arteries; I65.23 Occlusion and stenosis of bilateral carotid arteries
CPT/HCPCS: 70450; 72148

== ENCOUNTER 2024-09-21 07:46 | Outpatient (CLI) | payer OTHER, SELFPAY ==
--- NOTE | 2024-09-21 07:53 | US_ITS ---
WS: [id number] RIGHT UPPER QUADRANT ULTRASOUND HISTORY: PERSONAL HX OF MALIGNANT NEOPLASM OF LIVER COMPARISON: CT abdomen 09/11/2021 Liver: 22.3 cm in length. Liver is enlarged with mild coarse echotexture. Moderate diffuse nodular appearance of the entire liver surface. No mass identified by ultrasound. No intrahepatic duct dilatation. Portal Vein: Normal hepatopetal flow with monophasic waveform. Gallbladder: Normally distended with mild gallbladder wall thickening. There is layering debris and sludge within the gallbladder. Gallbladder wall adjacent to the sludge is not well visualized. Debris within the gallbladder appears mobile. CBD: 0.5 cm Pancreas: Normal size and echogenicity. Right kidney: 14.2 cm in length. Normal size and echogenicity. No hydronephrosis or mass. Aorta and IVC: Unremarkable abdominal aorta and IVC. No ascites. US/US abdomen limited [id number] IMPRESSION: 1. Marked hepatomegaly with changes of cirrhosis. No hepatic mass or intrahepa tic duct dilatation is identified. 2. Diffuse gallbladder wall thickening with no stones. There is sludge within the gallbladder. Not all portions of the gallbladder wall are well visualized t o the sludge. Consider short-term gallbladder ultrasound follow-up to ensure th ere is no occult mass hidden by the sludge.
== END 2024-09-21 07:47 | disposition home or self-care (01) ==
LOC: RAD 07:48
PROVIDERS: PCP Nurse Practitioner Family; Visit Provider Nurse Practitioner Family
DX: Z85.05 Personal history of malignant neoplasm of liver (principal); R16.0 Hepatomegaly, not elsewhere classified; R93.3 Abnormal findings on diagnostic imaging of other parts of digestive tract; R93.2 Abnormal findings on diagnostic imaging of liver and biliary tract
CPT/HCPCS: 76705

== ENCOUNTER 2024-09-23 14:35 | Outpatient (CLI) | payer OTHER, SELFPAY ==
--- NOTE | 2024-09-23 14:41 | USCV_ITS ---
Mervin Olivas Age: 64 Gender: M : 1960 Exam Date: 09/23/2024 14:58 Ordering Phys: Izabela Yung NP Technologist: R [place]am [place] [facility] [place]: stenosis/occlusion pt has known ICA occlusion. did not remember side Risk Factors: Previous Vascular Surgery: Right Brachial BP: / Left Brachial BP: / Right Left Velocity (cm/s) Spectral Plaque Velocity (cm/s) Spectral Plaque Syst/Diast Broadening Syst/Diast Broadening 61.90/ 20.60 Prox CCA 32.90 / 6.90 64.70/ 26.20 Mid CCA 29.10 / 7.50 72.20/ 28.10 Distal CCA 29.20 / 9.30 92.40/ 40.80 Prox ICA / 87.10/ 35.40 Mid ICA / 62.70/ 32.80 Distal ICA / 111.40 ECA 134.30 1.30 ICA/CCA Antegrade Vertebral Antegrade 37.40/ 17.50 cm/s 48.20/ 27.50 cm/s Tri Subclavian Tri 64.20 117.8 0 CONCLUSIONS Right ICA stenosis <50%. Moderate atheromatous plaque right carotid bulb/ICA. LEFT ICA occluded Normal antegrade Doppler flow noted in the right vertebral artery. Normal antegrade Doppler flow noted in the left vertebral artery. Cl Agee MD (Electronically Signed) Final Date: 25 Sep 2024 17:18 S
== END 2024-09-23 14:36 | disposition home or self-care (01) ==
PROVIDERS: PCP Nurse Practitioner Family; Visit Provider Nurse Practitioner Family
DX: I65.23 Occlusion and stenosis of bilateral carotid arteries (principal)
CPT/HCPCS: 93880

== ENCOUNTER 2024-10-06 09:35 | Outpatient (CLI) | payer OTHER, SELFPAY ==
--- NOTE | 2024-10-06 09:42 | NM_ITS ---
WS: [id number] NUCLEAR MEDICINE HIDA SCAN WITH GALLBLADDER EJECTION FRACTION HISTORY: RUQ PAIN COMPARISON: None available. TECHNIQUE: The patient was intravenously injected with 8.5 mCi of TC99m Mebrofenin. Immediate imaging over the right upper quadrant was followed by 5 minute image and additional images for a total of 60 minutes. Normal uptake of radiotracer throughout the liver. Activity identified in the gallbladder at 15 minutes and minimally distended by 60 minutes. Activity in the proximal small bowel was seen by 10 minutes. Good washout of the radiotracer from the liver by 60 minutes. The patient then drank 8 ounces of Ensure Plus. Ejection fraction at 60 minutes was 25%. Normal GB ejection fraction is 35-75%. Post fatty meal symptoms: None. NM/NM hepatobiliary w phar* [id number] IMPRESSION: 1. No common bile duct or cystic duct obstruction. 2. Abnormal gallbladder distention. Small caliber gallbladder with decreased g allbladder ejection fraction. HIDA scan findings probably related to gallbladde r dysfunction and chronic cholecystitis. Recommend surgical evaluation.
== END 2024-10-06 09:36 | disposition home or self-care (01) ==
PROVIDERS: PCP Nurse Practitioner Family; Visit Provider Nurse Practitioner Family
DX: K82.8 Other specified diseases of gallbladder (principal)
CPT/HCPCS: 78227; A9537

== ENCOUNTER 2024-10-13 10:27 | Outpatient (CLI) | payer OTHER, SELFPAY ==
--- NOTE | 2024-10-13 10:31 | USR_ITS ---
PROCEDURE INFORMATION: Exam: US Duplex Bilateral Lower Extremity Arteries Exam date and time: 10/13/2024 10:37 AM Age: 64 years old Clinical indication: Condition or disease; Peripheral vascular disease; Prior surgery; Surgery date: 6+ months; Surgery type: Iliofemoral graft in the left leg- removed within the last year; Additional info: Atherosclerosis TECHNIQUE: Imaging protocol: Real-time ultrasound scan of the arteries of the bilateral lower extremities with 2-D beckman scale, color Doppler flow and spectral waveform analysis. Images documented and saved. COMPARISON: MR lower leg LT wo con* [id number] 08/25/2019 9:21 AM FINDINGS: Right external iliac artery: Mildly abnormal monophasic waveform with slow flow. Peak velocity in the right external iliac artery is 31 cm/s. Severe plaque with multifocal less than 50% visible luminal narrowing. Right common femoral artery: Less than 50% visible luminal narrowing. Mildly abnormal monophasic waveform with slow flow at 22 cm/s. Right superficial femoral artery: Moderate plaque with multifocal greater than 50% visible stenosis. Mildly abnormal monophasic waveform with peak velocity 53 cm/s in the midportion. Right popliteal artery: No visible luminal narrowing. Mildly abnormal monophasic waveform with peak velocity 21 cm/s. Right calf/foot arteries: Mildly abnormal monophasic waveform in the right posterior tibial artery with forward flow through diastole and peak velocity 23 cm/s. Mildly abnormal monophasic waveform in the right dorsalis pedis artery with forward flow through diastole and peak velocity 33 cm/s. Right ankle brachial index: 0.9 Left external iliac artery: Severe calcific plaque with multifocal high-grade luminal narrowing. Minimal flow is detected at 4 cm/s. Left common femoral artery: Severe plaque with less than 50% visible luminal narrowing. Minimal flow is detected at 5 cm/s. Left superficial femoral artery: Mild calcific plaque with less than 50% visible luminal narrowing. Minimal flow is detected at 5 cm/s proximally. Peak velocity is at the midportion (15 cm/s). Left popliteal artery: No visible luminal narrowing. The mildly abnormal monophasic waveform with peak velocity 23 cm/s. Left calf/foot arteries: Left dorsalis pedis artery: Trace flow at 10 cm/s. Left ankle brachial index: Can not be obtained. Other findings: Irregular cardiac rhythm. US/CV arterial duplex [facility] [id number] IMPRESSION: 1. Minimal blood flow throughout the left lower extremity including the external iliac artery indicating near occlusion upstream. 2. Mildly abnormal waveforms throughout the right lower extremity with slow flow in the right external iliac artery indicating hemodynamically significant stenosis upstream. Marked calcific plaque with significant stenosis of the right common iliac artery was visible on CT 09/12/2019. 3. The above findings would be better evaluated using CTA. 4. Irregular cardiac rhythm.
== END 2024-10-13 10:28 | disposition home or self-care (01) ==
PROVIDERS: PCP Nurse Practitioner Family; Visit Provider Nurse Practitioner Family
DX: I70.213 Atherosclerosis of native arteries of extremities with intermittent claudication, bilateral legs (principal); I70.201 Unspecified atherosclerosis of native arteries of extremities, right leg; R93.89 Abnormal findings on diagnostic imaging of other specified body structures; I70.202 Unspecified atherosclerosis of native arteries of extremities, left leg
CPT/HCPCS: 93925